=== PATIENT | male | born 1960 | race Caucasian/White ===

== ENCOUNTER → 2016-08-30 | Outpatient (CLI) | payer OTHER, MEDICAID ==
--- NOTE | 2016-08-30 16:22 | DX ---
Right Calcaneus, 2 views History: Follow-up partial calcanectomy for osteomyelitis Comparison: April 23, 2016 FINDINGS: The posterior margin of the ostectomy is sharp and corticated. Bandlike calcification above the posterior calcaneus likely represents heterotopic ossification within the reimplanted Achilles t endon. There is sclerosis deep to the surgical margin. There is no bone lysis. On the axial view ther e is some periosteal new bone along the medial lateral margins of the surgery. There is no soft tissu e gas. Impression: Excellent postoperative healing.
== END ==
LOC: BMCIMAGING 15:00
PROVIDERS: ATTEND Podiatrist Foot & Ankle Surgery
DX: Z09 Encounter for follow-up examination after completed treatment for conditions other than malignant neoplasm (principal); Z98.890 Other specified postprocedural states

== ENCOUNTER 2016-11-01 17:02 | Inpatient (IN) | payer OTHER, MEDICAID ==
--- NOTE | 2016-11-01 17:23 | EDPHY ---
H & P Time Seen by Provider: 11/01/16 17:11 HPI/ROS: CHIEF COMPLAINT: Right ankle wound HISTORY OF PRESENT ILLNESS: This 56-year-old man has had previous right heel infection and osteomyelitis previously treated by Bassem Manuel and Yarely Perdomo. He was last seen but at the end last year and this last had a wound on his right lateral ankle open up. Over the last few days it has become more warm and swollen and hot to the touch and the wound is getting bigger. He says it is associated swelling of his leg and bad smelling discharge. No fevers or chills. Symptoms are moderate. REVIEW OF SYSTEMS: Eye: no change in vision ENT: no sore throat Cardiac: no chest pain or syncope Pulmonary: no cough or SOB Abdomen: no vomiting, diarrhea, abdominal pain. Decreased oral intake which is normal. Musculoskeletal: Minimal pain with decreased sensation in both lower extremities. Skin: Skin as in HPI. Neuro: no headache Constitutional: no fever : Darker urine in the catheter bag. A comprehensive 10 point review of systems is otherwise negative aside from elements mentioned in the history of present illness. 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 Previous right heel resection. Suprapubic catheterization. Social history: Occasional alcohol, nonsmoker. 102/69 at 1800 General Appearance: Alert and conversant, cooperative. Eyes: No scleral icterus. ENT, Mouth: Normal mucous membranes. Respiratory: Normal respiratory effort, breath sounds equal, lungs are clear to auscultation. Cardiovascular: Regular rate and rhythm. Gastrointestinal: Abdomen is soft and non tender. Neurological: Alert and oriented x3. Partial movement of extremities with decrease in both lower extremities. Skin: Patient has a 1.5 cm open wound in the right lateral malleolus with surrounding erythema and 3+ pedal edema which is hot to the touch. Very slight pressure sore on the left side of the patient's buttock. Musculoskeletal: Right ankle and foot peripheral edema. Psychiatric: Not agitated. Emergency Department course/MDM: Appears to have acute cellulitis of the right ankle. Previous wound cultures reviewed from 04/23/2016 and 06/26/2016 includes gram-negative or commands and MSSA. Dr. Matta notified through OR nurse at 6:17 p.m. 1818: Maya to admit IV cefepime 1 g per Patricio, reviewed case in detail with her including previous cultures. IV fluids 2 L normal saline ordered. Patient at this time does not meet SIRS criteria with tachycardia, but afebrile and not tachypneic and normal white blood cell count. C Paxton Ann2, for Conor. Smoking Status: Former smoker Constitutional: Initial Vital Signs Temperature (C) 36.6 C 11/01/16 17:07 Heart Rate 104 H 11/01/16 17:07 Respiratory Rate 18 11/01/16 17:07 Blood Pressure 102/66 11/01/16 17:07 O2 Sat (%) 94 11/01/16 17:07 O2 Delivery Mode Room Air Allergies/Adverse Reactions: ciprofloxacin [From Cipro] Allergy (Verified 11/01/16 17:10) ciprofloxacin HCl [From Cipro] Allergy (Verified 11/01/16 17:10) Home Medications: Medication Instructions Recorded Baclofen [Baclofen 20 mg (*)] 40 mg PO BID 10/05/12 Diazepam [Valium 10 MG (*)] 20 mg PO BID 10/05/12 Nitrofurantoin Macrocrystal 50 mg PO BID 10/05/12 [Nitrofurantoin] Omeprazole [Prilosec 20 mg] 20 mg PO DAILY 10/05/12 Oxybutynin Chloride [Ditropan] 5 mg PO BID 10/05/12 Warfarin Sodium [Coumadin 5MG (*)] 5 mg PO SUTUWETHSA 04/22/16 Warfarin Sodium [Coumadin 7.5MG 7.5 mg PO MOFR 04/22/16 (*)] Medical Decision Making Differential Diagnosis: Differential considered including but not limited to cellulitis, osteomyelitis, abscess, DVT, fasciitis. Consult/Admit Bed Type: [place] [id number] cefepime - Data Points Laboratory Results: Laboratory Results 11/01/16 17:55 11/01/16 17:55 11/01/16 11/01/16 11/01/16 17:55 17:55 17:55 WBC 8.23 10^3/uL 10^3/uL (3.80-9.50) RBC 4.99 10^6/uL 10^6/uL (4.40-6.38) Hgb 14.8 g/dL g/dL (13.7-17.5) Hct 42.7 % % (40.0-51.0) MCV 85.6 fL fL (81.5-99.8) MCH 29.7 pg pg (27.9-34.1) MCHC 34.7 g/dL g/dL (32.4-36.7) RDW 12.8 % % (11.5-15.2) Plt Count 350 10^3/uL 10^3/uL (150-400) MPV 9.4 fL fL (8.7-11.7) Neut % (Auto) 63.5 % % (39.3-74.2) Lymph % (Auto) 24.7 % % (15.0-45.0) Redwood % (Auto) 9.5 % % (4.5-13.0) Eos % (Auto) 1.5 % % (0.6-7.6) Baso % (Auto) 0.4 % % (0.3-1.7) Nucleat RBC Rel Count 0.0 % % (0.0-0.2) Absolute Neuts (auto) 5.24 10^3/uL 10^3/uL (1.70-6.50) Absolute Lymphs (auto) 2.03 10^3/uL 10^3/uL (1.00-3.00) Absolute Monos (auto) 0.78 10^3/uL 10^3/uL (0.30-0.80) Absolute Eos (auto) 0.12 10^3/uL 10^3/uL (0.03-0.40) Absolute Basos (auto) 0.03 10^3/uL 10^3/uL (0.02-0.10) Absolute Nucleated RBC 0.00 10^3/uL 10^3/uL (0-0.01) Immature Gran % 0.4 % % (0.0-1.1) Immature Gran # 0.03 10^3/uL 10^3/uL (0.00-0.10) PT 35.4 SEC H SEC (12.0-15.0) INR 3.46 H (0.83-1.16) APTT 46.8 SEC H SEC (23.0-38.0) VBG Lactic Acid Sodium 136 mEq/L mEq/L (134-144) Potassium 4.4 mEq/L mEq/L (3.5-5.2) Chloride 102 mEq/L mEq/L (97-110) Carbon Dioxide 18 mEq/l L mEq/l (22-31) Anion Gap 16 mEq/L mEq/L (8-16) BUN 15 mg/dL mg/dL (7-23) Creatinine 0.8 mg/dL mg/dL (0.7-1.3) Estimated GFR > 60 Glucose 106 mg/dL H mg/dL (70-100) Calcium 9.1 mg/dL mg/dL (8.5-10.4) Total Bilirubin 0.7 mg/dL mg/dL (0.1-1.4) 11/01/16 17:55 WBC RBC Hgb Hct MCV MCH MCHC RDW Plt Count MPV Neut % (Auto) Lymph % (Auto) Redwood % (Auto) Eos % (Auto) Baso % (Auto) Nucleat RBC Rel Count Absolute Neuts (auto) Absolute Lymphs (auto) Absolute Monos (auto) Absolute Eos (auto) Absolute Basos (auto) Absolute Nucleated RBC Immature Gran % Immature Gran # PT INR APTT VBG Lactic Acid 3.2 mmol/L H mmol/L (0.7-2.1) Sodium Potassium Chloride Carbon Dioxide Anion Gap BUN Creatinine Estimated GFR Glucose Calcium Total Bilirubin Medications Given: Discontinued Medications Cefepime HCl 2 gm/ Dextrose 100 mls @ 200 mls/hr IV EDNOW ONE PRN Reason: Protocol Stop: 11/01/16 18:48 Last Admin: 11/01/16 18:55 Dose: 100 mls Sodium Chloride (Ns) 1,000 mls @ 0 mls/hr IV ONCE ONE PRN Reason: Wide Open Stop: 11/01/16 18:21 Last Admin: 11/01/16 18:30 Dose: 1,000 mls Sodium Chloride (Ns) 1,000 mls @ 0 mls/hr IV ONCE ONE PRN Reason: Wide Open Stop: 11/01/16 18:21 Last Admin: 11/01/16 19:07 Dose: 1,000 mls Departure - Departure Disposition: [facility] Inpatient Acute Clinical Impression: Cellulitis of right ankle Condition: Fair
[2016-11-01 18:03] LABS: % IMMATURE GRANULYOCYTES 0.4 % (0.0-1.1); ABSOLUTE IMMATURE GRANULOCYTES 0.03 10^3/uL (0.00-0.10); ADD DIFF? NO; ADD MORPH? NO; ADD SCAN? NO; ATYPICAL LYMPHOCYTE FLAG 0 (0-99); FRAGMENT RBC FLAG 0 (0-99); HEMATOCRIT 42.7 % (40.0-51.0); HEMOGLOBIN 14.8 g/dL (13.7-17.5); LEFT SHIFT FLG 0 (0-99); LIPEMIA HEMOLYSIS FLAG 90 (0-99); MEAN CELL HEMOGLOBIN 29.7 pg (27.9-34.1); MEAN CELL HEMOGLOBIN CONCENTR. 34.7 g/dL (32.4-36.7); MEAN CELL VOLUME 85.6 fL (81.5-99.8); MEAN PLATELET VOLUME 9.4 fL (8.7-11.7); PLATELET CLUMPS FLAG 20 (0-99); PLATELET COUNT 350 10^3/uL (150-400); RED BLOOD CELL COUNT 4.99 10^6/uL (4.40-6.38); RED CELL DISTRIBUTION WIDTH 12.8 % (11.5-15.2)
[2016-11-01 18:12] LABS: INR 3.46 (0.83-1.16); PROTIME(PATIENT) 35.4 SEC (12.0-15.0)
[2016-11-01 18:14] LABS: APTT 46.8 SEC (23.0-38.0)
[2016-11-01] MEDS ORDERED: CEFEPIME HCL 2 GM in D5W 100 ML IV ONE (18:19)
[2016-11-01] MEDS ORDERED: NS 1,000 ML IV ONE ×2 (18:20)
[2016-11-01 18:24] LABS: ANION GAP 16 mEq/L (8-16); BILIRUBIN,TOTAL 0.7 mg/dL (0.1-1.4); CALCIUM 9.1 mg/dL (8.5-10.4); CARBON DIOXIDE 18 mEq/l (22-31); CHLORIDE 102 mEq/L (97-110); CREATININE 0.8 mg/dL (0.7-1.3); GLOMERULAR FILTRATION RATE > 60; GLUCOSE 106 mg/dL (70-100); POTASSIUM 4.4 mEq/L (3.5-5.2); SODIUM 136 mEq/L (134-144)
[2016-11-01 18:57] LABS: LACGHOST ORDER
[2016-11-01] MEDS ORDERED: ACETAMINOPHEN 325 MG TAB PO PRN (19:33)
[2016-11-01] MEDS ORDERED: ONDANSETRON 4 MG/2 ML VIAL IVP PRN (19:33)
--- NOTE | 2016-11-01 20:29 | GHP ---
[f rep st] HISTORY AND PHYSICAL DATE OF ADMISSION: 11/01/2016 CHIEF COMPLAINT: Right leg infection. HISTORY: The patient is a 56-year-old, incomplete cervical quad, who presents with a right leg woun d. It started as a pressure ulcer that formed on his right lateral ankle which, despite his best ef forts to keep a boot on it and have meticulous wound care, it did develop. This was a few weeks ago when he first noticed it. He was caring for it with wound care and things were improving. He finney ges the dressing twice a week. Last , it looked great but when he took the Porfirio dressing and boot off yesterday. It was massively erythematous with drainage. He does not have any other syste caty symptoms such as fever or chills or otherwise feeling unwell. PAST MEDICAL HISTORY: 1. C5-C6 incomplete quad due to a rugby accident at age 31. 2. DVT. 3. Chronic leg wound and osteomyelitis of the heel requiring surgical debridement. 4. Chronic lower extremity edema. 5. Urinary retention with suprapubic catheter. MEDICATIONS: Please see computer record for full detailed list. ALLERGIES: Cipro. SOCIAL HISTORY: No smoking. Occasional alcohol. He lives independently with the assistance [facility]. REVIEW OF SYSTEMS: Complete review of systems obtained. Review of systems negative regarding const itutional, HEENT, GI, pulmonary, vascular, , hematology, skin, musculoskeletal, endocrine and psyc h, except for positives as noted in HPI. FAMILY HISTORY: Positive for colon cancer in his father. PHYSICAL EXAMINATION: GENERAL: Well-developed, well-nourished male, in no acute distress. VITAL S IGNS: Temperature is 36.6, pulse 104, blood pressure 102/66, saturating 94% on room air. EYES: No rmal conjunctivae. Pupils equal and reactive to light. ENT: Normal ears and nose. Hearing intact . Normal lips and teeth. Oropharynx moist. NECK: Trachea midline. No thyromegaly. CHEST: Norm al respiratory effort. LUNGS: Clear to auscultation bilaterally. CARDIOVASCULAR: Regular rate an d rhythm. No murmur. No lower extremity edema. ABDOMEN: Soft, nontender. No hepatosplenomegaly. SKIN: His right foot is extremely erythematous stemming from a skin breakdown over the lateral an kle bone with an ulceration, erythema is a deep red extending over the entire foot. He is hyperrefl exic to the lower extremities but does not really appreciate any pain. Skin is otherwise warm, dry, intact without rash. MUSCULOSKELETAL: No cyanosis or clubbing. Strength is 0-5 lower extremities. NEURO: Cranial nerves intact. Decreased sensation to light touch in lower extremities which is c hronic. He is hyperreflexic. PSYCH: alert and oriented x3. Normal affect. Normal judgment and i nsight. Normal memory. LABORATORY DATA: White count 8.23, hematocrit 42.7, platelets 350. Sodium 136, potassium 4.4, chlo ride 102, bicarb 18, BUN 15, creatinine 0.8, glucose 106. INR 3.46. Lactate 3.2. This case was di scussed with Dr. Estrella, emergency room provider. He did speak with Infectious Disease and they recom mended cefepime. Ankle x-ray is negative for osteomyelitis. ASSESSMENT AND PLAN: 1. Right lower extremity cellulitis. This started with a pressure ulceration on his lateral ankle, now with extending erythema to involve most of his foot. Per ID recommendation, will continue IV c efepime and will consult him formally in the morning. Will consult wound nurse. 2. Lactic acid elevation. He is otherwise clinically nontoxic and actually does not meet sepsis cr iteria as he is afebrile without a white blood cell count. Lactate is improving after IV fluid in [facility] emergency room. 3. C5-C6 incomplete quadriplegic, this is stable. Will continue his baclofen. 4. Urinary retention status post suprapubic catheter. This is without symptoms. 5. Deep vein thrombosis. We will hold his warfarin secondary to supratherapeutic and INR and resum e warfarin when it comes down. CODE STATUS: Full. ADMISSION STATUS: Will admit to inpatient as his infection is severe, and I anticipate greater than 2 midnights for stabilization. DVT PROPHYLAXIS: He is low risk, given his chronic anticoagulation on warfarin. /[id number]/MODL
[2016-11-01] MEDS: CEFEPIME HCL 2 GM in D5W 100 ML IV SCH (21:10)
[2016-11-01] MEDS: BACLOFEN 20 MG TAB PO SCH (22:10)
[2016-11-01] MEDS: NS 1,000 ML IV SCH (22:10)
[2016-11-01] MEDS: DIAZEPAM 10 MG TAB PO SCH (22:10)
[2016-11-01] MEDS: OXYBUTYNIN CHLORIDE 5 MG TAB PO SCH (22:10)
[2016-11-02] MEDS: NS 1,000 ML IV SCH (03:03)
[2016-11-02] MEDS: CEFEPIME HCL 2 GM in D5W 100 ML IV SCH ×3 (03:03→18:48)
[2016-11-02 05:35] LABS: % IMMATURE GRANULYOCYTES 0.4 % (0.0-1.1); ABSOLUTE IMMATURE GRANULOCYTES 0.02 10^3/uL (0.00-0.10); ADD DIFF? NO; ADD MORPH? NO; ADD SCAN? NO; ATYPICAL LYMPHOCYTE FLAG 20 (0-99); FRAGMENT RBC FLAG 0 (0-99); HEMATOCRIT 36.8 % (40.0-51.0); HEMOGLOBIN 12.5 g/dL (13.7-17.5); LEFT SHIFT FLG 0 (0-99); LIPEMIA HEMOLYSIS FLAG 90 (0-99); MEAN CELL HEMOGLOBIN 28.9 pg (27.9-34.1); MEAN CELL VOLUME 85.2 fL (81.5-99.8); MEAN PLATELET VOLUME 9.5 fL (8.7-11.7); PLATELET CLUMPS FLAG 0 (0-99); PLATELET COUNT 273 10^3/uL (150-400); RED BLOOD CELL COUNT 4.32 10^6/uL (4.40-6.38); RED CELL DISTRIBUTION WIDTH 12.7 % (11.5-15.2)
[2016-11-02 05:38] LABS: INR 4.33 (0.83-1.16); PROTIME(PATIENT) 42.3 SEC (12.0-15.0)
[2016-11-02 05:48] LABS: ANION GAP 6 mEq/L (8-16); CALCIUM 8.1 mg/dL (8.5-10.4); CARBON DIOXIDE 22 mEq/l (22-31); CHLORIDE 110 mEq/L (97-110); CREATININE 0.7 mg/dL (0.7-1.3); GLOMERULAR FILTRATION RATE > 60; GLUCOSE 116 mg/dL (70-100); POTASSIUM 4.1 mEq/L (3.5-5.2); SODIUM 138 mEq/L (134-144)
[2016-11-02] MEDS: PANTOPRAZOLE SODIUM 40 MG TAB PO SCH (09:40)
[2016-11-02] MEDS: BACLOFEN 20 MG TAB PO SCH ×2 (09:40→20:14)
[2016-11-02] MEDS: OXYBUTYNIN CHLORIDE 5 MG TAB PO SCH ×2 (09:40→20:13)
[2016-11-02] MEDS: DIAZEPAM 5 MG TAB PO SCH ×2 (09:48→20:14)
--- NOTE | 2016-11-02 10:11 | HOSPPROG ---
Hospitalist Progress Note Assessment/Plan: RLE Cellulitis in setting of lateral malleolus pressure injury / ulcer - GPC's on gram stain. BCx's pending. ID following, on Cefepime. I reviewed a photo from yesterday and it is certainly improved from presentation. WBC's normal, lactate normalized, afebrile. DVT - supratherapeutic INR of 4.3. Hold Coumadin, pharmacy to dose when indicated. C5-C6 incomplete quad - Cont Baclofen Presence of SPC in setting of urinary retention - no urinary symptoms Full code Dispo - cont inpt Subjective: Feels better. Notes he doesn't get fevers. He thinks it looks better. No pain. Eating well. Objective: Vital Signs Temp Pulse Resp BP Pulse Ox 37.1 C 70 14 106/65 96 11/02/16 07:27 11/02/16 07:27 11/02/16 07:27 11/02/16 07:27 11/02/16 07:27 Laboratory Results 11/02/16 05:17 11/02/16 05:17 11/01/16 11/02/16 11/03/16 05:59 05:59 05:59 Intake Total 3212 Output Total 1525 Balance 1687 PT 42.3 SEC (12.0-15.0) H 11/02/16 05:17 INR 4.33 (0.83-1.16) H 11/02/16 05:17 - Physical Exam Constitutional: no apparent distress Eyes: PERRL Ears, Nose, Mouth, Throat: moist mucous membranes Cardiovascular: regular rate and rhythym Respiratory: no respiratory distress, clear to auscultation Gastrointestinal: normoactive bowel sounds, soft, non-tender abdomen Musculoskeletal: other (RLE lateral malleolus ulcer with decreased surrounding erythema) Neurologic: AAOx3 Psychiatric: interacting appropriately ICD10 Worksheet Patient Problems: Problems Problem Status Onset Cellulitis of right ankle Acute Acute osteomyelitis of right calcaneus Acute 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 Decubitus ulcer of right heel Acute Quadriplegia, C5-C7 incomplete Acute
[2016-11-02] MEDS: DIAZEPAM 10 MG TAB PO SCH (10:53)
--- NOTE | 2016-11-02 11:56 | GCON ---
[f rep st] CONSULTATION DATE OF CONSULTATION: 11/02/2016 CHIEF COMPLAINT: Right lateral malleolus wound and infection. HISTORY OF PRESENT ILLNESS: The patient is a 56-year-old, quadriplegic man, who is well known to [facility] service for his previous wound at the outpatient wound healing center. He developed a lateral mal leolus pressure ulcer. Home care changes the dressing twice per week. Yesterday, when the nurse to ok down the dressing, the surrounding tissue was extremely red, swollen and the wound was draining. He presented to the emergency room. He was not found to have a fever or leukocytosis. He does not have sensation or pain in the area. He was admitted for IV antibiotics. Today, he reports that th e swelling and redness is significantly improved compared to admission. PAST MEDICAL HISTORY: C5-6 incomplete quadriplegia due to rugby accident. History of DVT, chronic lower extremity edema, urinary retention with suprapubic catheter. ALLERGIES: Ciprofloxacin. SOCIAL HISTORY: Nonsmoker. Occasional alcohol use. He lives independently with home health. REVIEW OF SYSTEMS: Negative aside from HPI. FAMILY HISTORY: Noncontributory to wound. PHYSICAL EXAMINATION: GENERAL: Well-developed, well-nourished man, no acute distress, lying in bed comfortably. HEENT: Normocephalic, atraumatic. No hearing deficits. Pupils equal and round. No scleral icterus. Mucous membranes moist. NECK: Trachea midline. CHEST: 2+ peripheral edema rig ht lower extremity, 1+ peripheral edema left lower extremity. LUNGS: No increased work of breathin g. SKIN: The right lateral malleolus wound measures 2.5 x 2.5 x 0.6 cm. There was thick fibrinous slough in the base of the wound. I sharply debrided to reveal healthy granulation tissue. There w as still approximately 20% slough after debridement. He tolerated this well. The wound was cleanse d and dressed with Hydrofera Blue Ready. He has surrounding erythema extending his entire foot as w ell as the leg, up to his knee. The erythema appears to be receding compared to admission. The tis gorge directly surrounding the wound is dark red and violaceous. Palpable DP, PT pulses on the left s lawrence. Unable to palpate pulses on the right secondary to edema. IMPRESSION AND PLAN: A 56-year-old, quadriplegic man with a right lower extremity cellulitis. Sour ce of the infection being the right lateral malleolus wound. Continue IV antibiotics per Infectious Disease recommendation. Prevalon boots to offload pressure. Wound care nurse following. We will c maggie to follow through this admission. He may require serial debridements. Case discussed with Dr. Matta. /[id number]/MODL
--- NOTE | 2016-11-02 13:46 | WOCRNPDOC ---
WOCRN Advanced Assessment Note - Skin Integrity Problem, Advanced Assess Right Heel Pressure Injury Dressing Type: Open to Air Wound Bed Constitution: Scab Site Measurement - Head-to-Toe Length X Width X Depth (cm): 0 Pressure Injury Stage: Stage 3 Pressure Injury Present on Admit: Yes Skin Integrity Problem Comment: Healed pressure injury. Scar present. Unsure whether wound was a stage 3 or stage 4 previously. Left Heel Pressure Injury Dressing Type: Open to Air Site Measurement - Head-to-Toe Length X Width X Depth (cm): 1.5x1x0 Pressure Injury Stage: Deep Tissue Injury (DTI) Pressure Injury Present on Admit: Yes Coccyx Pressure Injury Dressing Type: Tegaderm Film Dressing Description: Clean/Dry, Intact Integumentary Issue Intervention: Dressing Changed, Dressing Initialed & Dated Wound Bed Color: [place] Site Measurement - Head-to-Toe Length X Width X Depth (cm): 2x3x0.1 (partial thickness) and 1x1.5x0 DTI in the middle of the partial thickness wound. Pressure Injury Stage: Deep Tissue Injury (DTI) Skin Integrity Problem Comment: Per report from outpatient wound care this wound originally presented as a skin tear. Now with small non blanching dark red /purple area in center of wound. Will consider pressure at this point. Covered with Alleyvn life sacral dressing. Right Lateral Ankle Pressure Injury Dressing Type: Open to Air Exudate Amount: Minimal Exudate Characteristic(s): Serosanguinous Integumentary Issue Intervention: Dressing Applied Meredith Wound Tissue: Erythema, Erythema Marked by Wound RN Meredith Wound Swelling: Moderate Wound Bed Color: Yellow Wound Bed Constitution: Granulation Tissue (20%), Smooth Tissue, Adhered Slough (20% remaining after bedside debridement), Fascia Site Measurement - Head-to-Toe Length X Width X Depth (cm): 2.5x2.5x0.6 Pressure Injury Stage: Stage 4 Pressure Injury Present on Admit: Yes Extremity Temperature: Warm Skin Integrity Problem Comment: Wound open to air and draining into offloading boot on assessment with Zee YOUNG. Cleaned with wound cleanser and gauze. Zee performed sharp bedside debridement which patient tolerated well. Hydrofera blue ready applied to wound bed and covered with Allevyn life dressing.
--- NOTE | 2016-11-02 17:58 | PCMIDPN ---
Assessment/Plan: Assessment: Right lateral ankle malleolar ulcer with surrounding infection. G stain of wound culture shows both gram-negative rods and gram-positive cocci. The only isolate growing at this point is a methicillin sensitive Staph aureus. It is clear that the cefepime monotherapy has made a significant change in the last 24 hours. The drawn borders are well above any discernible border of erythema. Would continue this monotherapy for another 1-2 days before attempts to switch to oral therapy. There is no evidence of bone involvement on plain film. Plan: 1. Continue cefepime monotherapy. 2. Plan to transition to oral coverage in the next 1-2 days depending on clinical improvement. 11/02/16 17:55 11/02/16 17:58 Subjective: Patient is resting in his hospital bed. He notes his history over the last week of developing a small ulcer on the lateral ankle. He then noted the skin surrounding it became bright red approximately 3-4 days ago. We have seen this patient in the recent past for heel infection on the same foot. Objective: Cefepime # 2 Vital Signs Temp Pulse Resp BP Pulse Ox 37.2 C 72 14 121/72 H 96 11/02/16 15:04 11/02/16 15:04 11/02/16 15:04 11/02/16 15:04 11/02/16 15:04 Laboratory Results 11/02/16 05:17 11/02/16 05:17 11/01/16 11/02/16 11/03/16 05:59 05:59 05:59 Intake Total 3212 750 Output Total 1525 2750 Balance 1687 -1999 - Physical Exam General Appearance: WD/WN, alert, no apparent distress, non-toxic Respiratory: lungs clear, normal breath sounds, No respiratory distress Cardiac/Chest: regular rate, rhythm, No tachycardia Extremities: non-tender, No normal inspection (Right lateral ankle wound less than 1 cm in diameter. Surrounding mild erythema of the ankle and dorsal foot.) Skin: normal color, warm/dry, No rash Neuro/Psych: alert, normal mood/affect, oriented x 3 ICD10 Worksheet Patient Problems: Problems Problem Status Onset Cellulitis of right ankle Acute Acute osteomyelitis of right calcaneus Acute 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 Decubitus ulcer of right heel Acute Quadriplegia, C5-C7 incomplete Acute
[2016-11-03] MEDS: CEFEPIME HCL 2 GM in D5W 100 ML IV SCH ×2 (03:43→11:58)
[2016-11-03 05:22] LABS: INR 2.21 (0.83-1.16); PROTIME(PATIENT) 24.7 SEC (12.0-15.0)
[2016-11-03] MEDS: OXYBUTYNIN CHLORIDE 5 MG TAB PO SCH ×2 (09:19→22:03)
[2016-11-03] MEDS: BACLOFEN 20 MG TAB PO SCH ×2 (09:19→22:03)
[2016-11-03] MEDS: PANTOPRAZOLE SODIUM 40 MG TAB PO SCH (09:20)
[2016-11-03] MEDS: DIAZEPAM 5 MG TAB PO SCH ×2 (09:20→22:03)
--- NOTE | 2016-11-03 12:34 | SOAPPROG ---
SOB[facility] Progress Note Assessment/Plan: Assessment: 56yo male quadriplegic with RLE cellulitis, seen by infectious disease, wound care "things are really improving" Viewed photos on pt phone of few days ago erythema , pain improved, denies feeling sick overall PE awake alert nontoxic RLE right lateral ankle wound with minimal erythema, no fluctuance, decreased pulses to palpation Plan: marked improvement with ABX wound care ART studies to asses flow, seen with Dr Matta will continue to follow 11/03/16 12:31 Objective: Vital Signs Temp Pulse Resp BP Pulse Ox 36.5 C 65 16 97/64 L 94 11/03/16 11:26 11/03/16 11:26 11/03/16 11:26 11/03/16 11:26 11/03/16 11:26 Laboratory Results 11/02/16 05:17 11/02/16 05:17 11/02/16 11/03/16 11/04/16 05:59 05:59 05:59 Intake Total 3212 2825 Output Total 152 6630 1000 Balance 7567 -9535 -1000 PT 24.7 SEC (12.0-15.0) H D 11/03/16 04:49 INR 2.21 (0.83-1.16) H 11/03/16 04:49 ICD10 Worksheet Patient Problems: Problems Problem Status Onset Cellulitis of right ankle Acute Acute osteomyelitis of right calcaneus Acute 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 Decubitus ulcer of right heel Acute Quadriplegia, C5-C7 incomplete Acute
--- NOTE | 2016-11-03 12:35 | WOCRNPDOC ---
TERRI Advanced Assessment Note - Skin Integrity Problem, Advanced Assess Right Lateral Ankle Dressing Type: Allevyn Life, Hydrofera Blue Ready Dressing Description: Clean/Dry, Intact Exudate Amount: Scant Exudate Characteristic(s): Serosanguinous Integumentary Issue Intervention: Dressing Changed Meredith Wound Tissue: Erythema (greatly reduced since assessment yesterday. ) Wound Bed Constitution: Granulation Tissue, Adhered Slough Skin Integrity Problem Comment: Cleaned with wound cleanser. Iodosorb to wound bed. Covered with Alleyvhomer Life. Dr. Perdomo and Dr. Curry assessed. Wound care will follow up Monday or Tuesday 11/07 or 11/08.
--- NOTE | 2016-11-03 12:39 | PCMIDPN ---
Assessment/Plan: R LE cellulitis secondary to MSSA associated with R lateral ankle wound - remarkable improvement over 3 days based on picture records. Blood cultures and 11/02 1 set each day remains negative. --narrow antibiotics to ancef 1gm IV q8h, can dc on 7 days of Keflex 500mg PO TID tomorrow --dc cefepime Care coordinated with Dr Perdomo and wound care team Subjective: patient very happy with significant response to antibiotics Objective: Vital Signs Temp Pulse Resp BP Pulse Ox 36.5 C 65 16 97/64 L 94 11/03/16 11:26 11/03/16 11:26 11/03/16 11:26 11/03/16 11:26 11/03/16 11:26 Laboratory Results 11/02/16 05:17 11/02/16 05:17 11/02/16 11/03/16 11/04/16 05:59 05:59 05:59 Intake Total 3212 2825 Output Total 1525 6650 1000 Balance 4727 -0805 -1000 - Physical Exam General Appearance: alert, no apparent distress EENT: No scleral icterus Respiratory: No accessory muscle use Extremities: erythema (very faint erythema remains immediately surrounding wound on lateral R ankle. much of the erythema present on bernal, lateral leg has now completely resolved) Skin: No rash Neuro/Psych: alert, normal mood/affect, oriented x 3 ICD10 Worksheet Patient Problems: Problems Problem Status Onset Cellulitis of right ankle Acute Acute osteomyelitis of right calcaneus Acute 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 Decubitus ulcer of right heel Acute Quadriplegia, C5-C7 incomplete Acute
[2016-11-03] MEDS: WARFARIN SODIUM 5 MG TAB PO SCH ×2 (13:42→14:16)
--- NOTE | 2016-11-03 14:15 | SOAPPROG ---
SOAP Progress Note Assessment/Plan: Assessment: 56 year old paraplegic who was admitted for right lower extremity cellulitus and wound on right lateral malleolus. Posterior wound scabbed. Iodosorb to malleolus. Cellulitus much improved on antibiotics. [facility] 1[facility]2 weeks after discharge. Plan: 11/03/16 14:12 Objective: Vital Signs Temp Pulse Resp BP Pulse Ox 36.5 C 65 16 97/64 L 94 11/03/16 11:26 11/03/16 11:26 11/03/16 11:26 11/03/16 11:26 11/03/16 11:26 Laboratory Results 11/02/16 05:17 11/02/16 05:17 11/02/16 11/03/16 11/04/16 05:59 05:59 05:59 Intake Total 3212 2825 Output Total 1525 6650 1000 Balance 1687 -3825 -1000 PT 24.7 SEC (12.0-15.0) H D 11/03/16 04:49 INR 2.21 (0.83-1.16) H 11/03/16 04:49 ICD10 Worksheet Patient Problems: Problems Problem Status Onset Cellulitis of right ankle Acute Acute osteomyelitis of right calcaneus Acute 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 Decubitus ulcer of right heel Acute Quadriplegia, C5-C7 incomplete Acute
--- NOTE | 2016-11-03 15:41 | HOSPPROG ---
Hospitalist Progress Note Assessment/Plan: 56-year-old admitted with a right lower extremity cellulitis and abscess. Patient is new to me today. - Are LLE cellulitis in setting of lateral malleolus pressure injury or ulceration. Antibiotic on cefepime for gram-positive cocci on the Gram stain. Review of the photo from admission shows it is very significantly improved from admission. - DVT: By history he has had a DVT and he was admitted with a super therapeutic INR at 4.3. The INR is normalized and will restart his Coumadin today. - C5-C6 Incomplete quad will continue baclofen. - Code: Full - disposition: 1-2 days on oral antibiotics per findings of ID and surgery. Subjective: No complaints of chest pain shortness of breath or right leg pain. Objective: Vital Signs Temp Pulse Resp BP Pulse Ox 36.5 C 65 16 97/64 L 94 11/03/16 11:26 11/03/16 11:26 11/03/16 11:26 11/03/16 11:26 11/03/16 11:26 Laboratory Results 11/02/16 05:17 11/02/16 05:17 11/02/16 11/03/16 11/04/16 05:59 05:59 05:59 Intake Total 3212 2825 Output Total 1525 6650 1000 Balance 1687 -3825 -1000 PT 24.7 SEC (12.0-15.0) H D 11/03/16 04:49 INR 2.21 (0.83-1.16) H 11/03/16 04:49 - Time Spent With Patient Time Spent with Patient: greater than 35 minutes Time Spent with Patient: Greater than 35 minutes spent on this patients care, greater than 50% of time spent counseling, educating, and coordinating care regarding the above mentioned plan. - Pending Discharge Pending Discharge Within 24 Hours: Yes Pending Discharge Date: 11/04/16 Pending Discharge Time: 11:00 - Physical Exam Constitutional: no apparent distress Eyes: PERRL Ears, Nose, Mouth, Throat: moist mucous membranes, hearing normal Cardiovascular: regular rate and rhythym, no murmur, rub, or gallop Respiratory: no respiratory distress, no rales or rhonchi Gastrointestinal: normoactive bowel sounds, soft, non-tender abdomen, no palpable masses Skin: other ( Right lower extremity over the lateral malleolus shows a pressure ulceration at a stage III with out surrounding erythema or ascending cellulitis at this time. It is much improved.) Neurologic: AAOx3, CN II-XII Intact, other ( C5-6 incomplete quad. Patient has use of his upper extremity.) ICD10 Worksheet Patient Problems: Problems Problem Status Onset Quadriplegia, C5-C7 incomplete Acute Decubitus ulcer of right heel Acute 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 Acute osteomyelitis of right calcaneus Acute Cellulitis of right ankle Acute
[2016-11-03] MEDS ORDERED: WARFARIN SODIUM 5 MG TAB PO ONE (16:00)
[2016-11-03 23:48] VITALS: RESP 16
[2016-11-04 05:35] LABS: INR 1.4 (0.83-1.16); PROTIME(PATIENT) 17.1 SEC (12.0-15.0)
[2016-11-04] MEDS: DIAZEPAM 5 MG TAB PO SCH (08:44)
[2016-11-04] MEDS: OXYBUTYNIN CHLORIDE 5 MG TAB PO SCH (08:44)
[2016-11-04] MEDS: PANTOPRAZOLE SODIUM 40 MG TAB PO SCH (08:44)
[2016-11-04] MEDS: BACLOFEN 20 MG TAB PO SCH (08:44)
[2016-11-04 12:09] VITALS: PULSE 71; TEMP 98; O2SAT 94
[2016-11-04 12:11] VITALS: BP 96/55
[2016-11-04] MEDS ORDERED: WARFARIN SODIUM 7.5 MG TAB PO SCH (13:00)
--- NOTE | 2016-11-04 13:57 | PDIAF ---
- Diagnosis Code Status: Full Code - Medication Management Discharge Medications: Medications to Continue on Transfer Baclofen [Baclofen 20 mg (*)] 40 mg PO BID 10/05/12 [Last Taken 11/01/16] Diazepam [Valium 10 MG (*)] 20 mg PO BID 10/05/12 [Last Taken 11/01/16] Nitrofurantoin Macrocrystal [Nitrofurantoin] 50 mg PO BID 10/05/12 [Last Taken 11/01/16] Omeprazole [Prilosec 20 mg] 20 mg PO DAILY 10/05/12 [Last Taken 11/01/16] Oxybutynin Chloride [Ditropan] 5 mg PO BID 10/05/12 [Last Taken 11/01/16] Warfarin Sodium [Coumadin 5MG (*)] 5 mg PO SUTUWETHSA 04/22/16 [Last Taken 11/01] Warfarin Sodium [Coumadin 7.5MG (*)] 7.5 mg PO MOFR 04/22/16 [Last Taken ] Cephalexin [Keflex] 500 mg PO TID #21 capsule 11/04/16 [Last Taken Unknown] Diphenoxylate HCl/Atrop Sulf [Lomotil Tab (*)] 1 tab PO BID PRN #30 tab [Last Taken Unknown] Discharge Medications: Refer to the Discharge Home Medication list for PRN reason. - Orders Services needed: Home Care, Registered Nurse, Certified Toxicology Supervisor Home Care Face to Face: I certify that this patient was under my care and that I had the required [id number] encounter meeting the encounter requirements on the discharge day. My findings support the fact that the patient is homebound as defined in CMS Chapter 7 Medicare Benefits Manual 30.1.1, The condition of the patient is such that there exists a normal inability to leave home and consequently, leaving home would require a considerable and taxing effort. Diet Recommendation: no restrictions on diet Diet Texture: Regular Texture Diet - Follow Up Care Current Providers and Referrals: MALU SILVERIO [Primary Care Provider] - follow up in 2 weeks
--- NOTE | 2016-11-04 13:58 | GDS ---
[f rep st] DISCHARGE SUMMARY DIAGNOSES: Known acute diagnoses on this admission: 1. Acute right lateral malleolus abscess ulceration with cellulitis. 2. Lactic acid elevation in a nontoxic range. Chronic diagnoses: 1. C5-6 incomplete quad. 2. Urinary retention status post suprapubic catheter placement. 3. Deep venous thrombosis by history on warfarin anticoagulation. CONSULTATION: Wound Care, Infectious Disease. PROCEDURES: Daily wound care. HOSPITAL COURSE: This is a 56-year-old male with a known C5-6 partial quad. The patient has some u se of his upper extremities. He presented with a wound infection on the right lateral malleolus whi ch was examined and found to extend to the deep tissues along with some cellulitis. He was placed o n IV antibiotics and had remarkable improvement with this and daily wound care. The wound was debri ded by Surgery at the bedside and remarkably improved. For his improvement and as he has strong [facility] e care, he desired to return home and complete oral antibiotics. DISCHARGE MEDICATIONS: His new medication will be Keflex 500 mg p.o. t.i.d. x7 days. We will cont inue his usual medications of nitrofurantoin 50 mg b.i.d.; Valium 20 mg p.o. b.i.d.; baclofen 40 mg b.i.d.; Ditropan 5 mg b.i.d.; omeprazole 20 mg daily; Coumadin 7.5 mg on Monday and Monday and 5 mg on Monday, Monday, Monday, , Monday; Colace suppositories and Lomotil 2 mg tablets, #3 0, one p.o. for diarrhea up to 4 per day. PLAN: The gentleman returns home to his home care. He will follow up at the [facility] in 1-2 weeks. He also will be seen by his own physician, Dr. Randell Pinedo in 2 weeks on a p.r.n. basis. Laboratories of note at the time of discharge. His discharge INR is 1.4, which we have resumed his usual home regime. This is his only low reading and otherwise he was supratherapeutic. Thus, he wi ll not be bridged as we expect fully he will return to a therapeutic range within 24 hours. WBC 500 0, hemoglobin 12.5. Chemistry panel was normal with a calcium of 8.1. Time of this discharge required 40 minutes, greater than 50% to counseling aide and coordinate care. /[id number]/MODL
[2016-11-04] MEDS ORDERED: WARFARIN SODIUM 5 MG TAB PO SCH (16:00)
--- NOTE | 2016-11-07 14:06 | CPIP ---
[f rep st] INVASIVE CARDIAC PROCEDURE DATE OF PROCEDURE: 11/03/2016 FINDINGS: The patient was seen for arterial studies because of nonhealing wound. He does have palp able pedal pulses bilaterally. His PVR tracings show good segmental tracings all the way down to th e metatarsal level bilaterally. Ankle-brachial indices are greater than 1 bilaterally. IMPRESSION: No evidence of vascular insufficiency to explain his lesion. The patient was not exerc ised as he is paraplegic. /[id number]/MODL
--- NOTE | 2016-11-08 10:08 | PQFORM ---
PHYSICIAN QUERY FORM Needs Your Response This query form is being sent to you to assure this patient record is coded properly. Please respond to the question below: FRENCH POLISHER QUESTION: HCETOR Taveras On 11/02/16 you performed a bedside debridement. Per your documentation, you sharply debrided the fibrinous slough from lateral malleolus wound, Please clarify if this debridement was: ( * ) Excisional skin ( * ) Excisional subcu/ fascia ( ) Excisional muscle/soft tissue ( ) Wash out/drainage Thank you, LAINEY Fraser [phone] INSTRUCTIONS FOR RESPONSE: Answer question by clicking on the "Edit Document" button. Move cursor to area below the stars. When complete, hit "Save." Click on the "Sign" button, then click "Sign" again. Type in your PIN and hit "Enter." MTDD
== END 2016-11-04 16:27 | disposition home health service (06) | DRG 579 ==
LOC: F3E 20:06
PROVIDERS: ADMIT Internal Medicine; ATTEND Internal Medicine Pulmonary Disease
PROC: 0JBN3ZZ Excision of Right Lower Leg Subcutaneous Tissue and Fascia, Percutaneous Approach (ICD-10-PCS; principal; 2016-11-02)
DX: L02.415 Cutaneous abscess of right lower limb (principal); L03.115 Cellulitis of right lower limb; B95.61 Methicillin susceptible Staphylococcus aureus infection as the cause of diseases classified elsewhere; G82.54 Quadriplegia, C5-C7 incomplete; R60.9 Edema, unspecified; R33.9 Retention of urine, unspecified; Z86.718 Personal history of other venous thrombosis and embolism; Z79.01 Long term (current) use of anticoagulants
CPT/HCPCS: 96365; J0690; J0692

== ENCOUNTER 2017-09-04 18:12 | Inpatient (IN) | payer OTHER, MEDICAID ==
--- NOTE | 2017-09-04 18:50 | EDPHY ---
H & P Stated Complaint: infected right foot. seen at outpt clinic - Personal History Current Tetanus/Diphtheria Vaccine: Yes Current Tetanus Diphtheria and Acellular Pertussis (TDAP): Yes - Medical/Surgical History Hx Asthma: No Hx Chronic Respiratory Disease: No Hx Diabetes: No Hx Cardiac Disease: No Hx Renal Disease: No Hx Cirrhosis: No Hx Alcoholism: No Hx HIV/AIDS: No Hx Splenectomy or Spleen Trauma: No Other PMH: quad-Rugby, supra pubic cath, psh- partial amp R heel 04/2016 - Social History Smoking Status: Former smoker Time Seen by Provider: 09/04/17 18:17 HPI/ROS: CHIEF COMPLAINT: "I have an infection on the right leg " HISTORY OF PRESENT ILLNESS: 56-year-old wheelchair-bound male, history of chronic infection bilateral malleoli followed at the wound clinic, complaining of new, progressive erythema to the right lower extremity, fever, flu-like symptoms for the past 2 days. He is followed at the wound clinic for his chronic malleolus by wounds however notes that the erythema in his right lower extremity is new. He denies: Urinary abnormality, abdominal pain, chest pain, cough, sore throat, nuchal rigidity. REVIEW OF SYSTEMS: A ten point review of systems was performed and is negative with the exception of the items mentioned in the HPI PAST MEDICAL & SURGICAL HISTORY: C5-6 incomplete quadriplegic. Urinary retention history. DVT on warfarin anticoagulation. Medial lateral malleoli chronic wounds. Wheelchair-bound SOCIAL HISTORY: Lives by himself PHYSICAL EXAM (Prior to examination, patient consented to physical exam, hands were washed and my usual and customary physical exam procedures followed) 1) GENERAL: Well-developed, well-nourished, alert and oriented. Appears to be in no acute distress. 2) HEAD: Normocephalic, atraumatic 3) HEENT: Pupils equal, round, reactive to light bilaterally. Sclera anicteric. 4) NECK: Full range of motion, no meningeal signs. 5) LUNGS: Clear auscultation bilaterally, no wheezes, no rhonchi, no retractions. 6) HEART: Regular rate and rhythm, no murmur, no heave, no gallop. 7) ABDOMEN: No guarding, no rebound, no focal tenderness, negative McBurney's, negative Sandoval's, negative Rovsing's, negative peritoneal sign, 8) MUSCULOSKELETAL: Right lower extremity:. Right ankle dressings in place, draining, tender, no crepitus. erythema, induration indurated extending to the distal 3rd of the thigh Moving all extremities, no focal areas of tenderness, no obvious trauma. No peripheral edema or discoloration. 9) BACK: No CVA tenderness, no midline vertebral tenderness, no fluctuance, no step-off, no obvious trauma, no visual or palpable abnormality. 10) SKIN: No rash, no petechiae. 11) Psychiatric: Patient is oriented X 3, there is no agitation. Answering questions appropriately DIFFERENTIAL DIAGNOSIS: In no particular order including but not limited to cellulitis, necrotizing fasciitis, osteomyelitis (Nani,Rain Aishwarya) Constitutional: Initial Vital Signs Temperature (C) 36.3 C 09/04/17 18:17 Heart Rate 112 H 09/04/17 18:17 Respiratory Rate 16 09/04/17 18:17 Blood Pressure 106/65 09/04/17 18:17 O2 Sat (%) 92 09/04/17 18:17 O2 Delivery Mode Room Air Allergies/Adverse Reactions: ciprofloxacin [From Cipro] Allergy (Verified 11/01/16 17:10) ciprofloxacin HCl [From Cipro] Allergy (Verified 11/01/16 17:10) Home Medications: Medication Instructions Recorded Baclofen [Baclofen 20 mg (*)] 40 mg PO BID 10/05/12 Diazepam [Valium 10 MG (*)] 20 mg PO BID 10/05/12 Nitrofurantoin Macrocrystal 50 mg PO BID 10/05/12 [Nitrofurantoin] Omeprazole [Prilosec 20 mg] 20 mg PO DAILY 10/05/12 Oxybutynin Chloride [Ditropan] 5 mg PO BID 10/05/12 Warfarin Sodium [Coumadin 5MG (*)] 5 mg PO SUMOTUWETHSA 04/22/16 Warfarin Sodium [Coumadin 7.5MG 7.5 mg PO FR 04/22/16 (*)] Medical Decision Making - Diagnostics Imaging Results: Imaging Impressions Ankle X-Ray 09/04/17 18:48 Impression: Postsurgical changes of resection of the posterior calcaneus. Possible erosion at the inferior tip of the lateral malleolus, which could represent osteomyelitis. Soft tissue swelling. Diffuse demineralization. Extremity Venous Study 09/04/17 18:48 Impression: No deep venous thrombosis right leg. Results called and discussed with Rain Cardoza at 09/04/2017 20:13. Chest X-Ray 09/04/17 18:49 Impression: No evidence for acute cardiopulmonary abnormality. ED Course/Re-evaluation: This patient was re-evaluated with serial examinations in the case discussed with primary supervising physician Dr. Satish Merritt in the ER. I think the patient necessitates hospitalization for progressive cellulitis of his right lower extremity, history of similar. He is started on IV vancomycin, blood cultures obtained. Doubt necrotizing fasciitis. (Rain Cardoza) Other Provider: Independent physician evaluation I evaluated and participated in the management of the patient. I also evaluated the patient independently. My co-signature indicates that I have reviewed this chart and I agree with the findings and plan of care as documented. My personal H&P findings include: The patient presents to the ED for markedly increased right leg edema, erythema and a fever to 103 degrees yesterday. The patient does have a history of cellulitis in the lower extremity. He has chronic ankle ulcer secondary to his chronic quadriplegia. The patient denies any fever, cough or congestion Physical exam: General Appearance: [Alert, no distress] Eyes: [Pupils equal and round no pallor or injection] ENT, Mouth: [Mucous membranes moist] Respiratory: [There are no retractions, lungs are clear to auscultation] Cardiovascular: [Regular rate and rhythm] Gastrointestinal: [Abdomen is soft and nontender, no masses, bowel sounds normal] Neurological: Chronic upper and lower extremity weakness secondary to his spinal cord injury Skin: Erythematous changes noted throughout the right lower extremity Musculoskeletal: [Neck is supple nontender] Extremities: Edema to right lower extremity with blistering lesions ED course: The patient presents to the ED with a right lower extremity cellulitis and evidence severe sepsis (elevated venous lactate, tachycardia, leukocytosis and tachycardia). The patient had blood cultures x2 obtained. The patient has no evidence of hypotension or septic shock. The patient received a IV fluid bolus. Plan will be for repeat venous lactic acid testing prior to transfer to the floor. Consultation is made with the hospitalist service. The patient is started on IV vancomycin and Invanz. (Satish Merritt) - Data Points Laboratory Results: Laboratory Results 09/04/17 19:23 09/04/17 19:23 09/04/17 09/04/17 09/04/17 19:23 19:23 19:23 WBC RBC Hgb Hct MCV MCH MCHC RDW Plt Count MPV Neut % (Auto) Lymph % (Auto) [place] % (Auto) Eos % (Auto) Baso % (Auto) Nucleat RBC Rel Count Absolute Neuts (auto) Absolute Lymphs (auto) Absolute Monos (auto) Absolute Eos (auto) Absolute Basos (auto) Absolute Nucleated RBC Immature Gran % Immature Gran # PT 24.1 SEC H SEC (12.0-15.0) INR 2.16 H (0.83-1.16) APTT 41.2 SEC H SEC (23.0-38.0) VBG Lactic Acid 3.0 mmol/L H mmol/L (0.7-2.1) Sodium 135 mEq/L mEq/L (135-145) Potassium 3.9 mEq/L mEq/L (3.5-5.2) Chloride 96 mEq/L L mEq/L (97-110) Carbon Dioxide 24 mEq/l mEq/l (22-31) Anion Gap 15 mEq/L mEq/L (8-16) BUN 11 mg/dL mg/dL (7-23) Creatinine 0.8 mg/dL mg/dL (0.7-1.3) Estimated GFR > 60 Glucose 105 mg/dL H mg/dL (70-100) Calcium 8.9 mg/dL mg/dL (8.5-10.4) Total Bilirubin 0.7 mg/dL mg/dL (0.1-1.4) 09/04/17 19:23 WBC 17.24 10^3/uL H 10^3/uL (3.80-9.50) RBC 4.72 10^6/uL 10^6/uL (4.40-6.38) Hgb 14.3 g/dL g/dL (13.7-17.5) Hct 41.8 % % (40.0-51.0) MCV 88.6 fL fL (81.5-99.8) MCH 30.3 pg pg (27.9-34.1) MCHC 34.2 g/dL g/dL (32.4-36.7) RDW 12.4 % % (11.5-15.2) Plt Count 265 10^3/uL 10^3/uL (150-400) MPV 9.1 fL fL (8.7-11.7) Neut % (Auto) 86.3 % H % (39.3-74.2) Lymph % (Auto) 5.5 % L % (15.0-45.0) [place] % (Auto) 6.8 % % (4.5-13.0) Eos % (Auto) 0.6 % % (0.6-7.6) Baso % (Auto) 0.3 % % (0.3-1.7) Nucleat RBC Rel Count 0.0 % % (0.0-0.2) Absolute Neuts (auto) 14.88 10^3/uL H 10^3/uL (1.70-6.50) Absolute Lymphs (auto) 0.94 10^3/uL L 10^3/uL (1.00-3.00) Absolute Monos (auto) 1.17 10^3/uL H 10^3/uL (0.30-0.80) Absolute Eos (auto) 0.11 10^3/uL 10^3/uL (0.03-0.40) Absolute Basos (auto) 0.05 10^3/uL 10^3/uL (0.02-0.10) Absolute Nucleated RBC 0.00 10^3/uL 10^3/uL (0-0.01) Immature Gran % 0.5 % % (0.0-1.1) Immature Gran # 0.09 10^3/uL 10^3/uL (0.00-0.10) PT INR APTT VBG Lactic Acid Sodium Potassium Chloride Carbon Dioxide Anion Gap BUN Creatinine Estimated GFR Glucose Calcium Total Bilirubin Medications Given: Discontinued Medications Vancomycin HCl 1 gm/ Dextrose 250 mls @ 250 mls/hr IV EDNOW ONE Stop: 09/04/17 20:29 Last Admin: 09/04/17 20:00 Dose: 250 mls Sodium Chloride (Ns) 2,700 mls @ 5,400 mls/hr 30 ml/kg infuse over 30 min ( 2700 ml) IV EDNOW ONE PRN Reason: Protocol Stop: 09/04/17 20:06 Last Admin: 09/04/17 19:45 Dose: 2,700 mls Departure - Departure Referrals: MALU SILVERIO [Primary Care Provider] - As per Instructions
[2017-09-04] MEDS ORDERED: VANCOMYCIN HCL/NORMAL SALINE 250 ML IV ONE (19:01)
[2017-09-04] MEDS ORDERED: VANCOMYCIN 1 GM in D5W 250 ML IV ONE (19:30)
[2017-09-04 19:35] LABS: PLATELET COUNT 265 10^3/uL (150-400)
[2017-09-04] MEDS ORDERED: NS 2,700 ML IV ONE (19:37)
[2017-09-04 20:11] LABS: INR 2.16 (0.83-1.16); PROTIME(PATIENT) 24.1 SEC (12.0-15.0)
[2017-09-04] MEDS ORDERED: ERTAPENEM 1 GM VIAL IVP ONE (20:28)
[2017-09-04] MEDS ORDERED: ONDANSETRON 4 MG/2 ML VIAL IVP PRN (20:29)
[2017-09-04] MEDS ORDERED: ONDANSETRON DISINTEGRATING 4 MG TAB PO PRN (20:29)
[2017-09-04] MEDS ORDERED: ACETAMINOPHEN 500 MG TAB ONE (20:39)
[2017-09-04] MEDS ORDERED: ACETAMINOPHEN 500 MG TAB PO ONE (20:40)
--- NOTE | 2017-09-04 22:05 | GHP ---
[f rep st] HISTORY AND PHYSICAL DATE OF ADMISSION: 09/04/2017 CHIEF COMPLAINT: Fevers, chills, and leg erythema. HISTORY OF PRESENT ILLNESS: This is a 56-year-old male with a history of C5-C6 incomplete quad due t o a rugby accident at age 31 who presents with 48 hours of symptoms of not feeling well, subjective f irena, chills. Patient was concerned that he potentially had influenza, made an attempt at fluid hyd ration at home, and ended up spending the day prior to presentation predominantly in bed. His aides did come to assist, provide him food. He skipped his daily rituals the day prior to presentation. [place] he michael the morning of presentation to begin his bowel regimen and address his lower extremity dr mata, noted that his right lower extremity was markedly more swollen, erythematous, and the wound looked markedly worse than it had the days previous. Therefore, he presented to the emergency depart ment for evaluation. In the ED, patient is still feeling subjective fevers and chills. Denies any nausea. Denies cough, shortness of breath. Denies any urinary symptoms or changes in his bowel habits. Gets regular wound care for his chronic right lower extremity wound as well as his chronic decubitus ulceration. Had n oted some darkening of his urine from his suprapubic catheter. PAST MEDICAL HISTORY: 1. C5-6 incomplete quadriplegic due to rugby accident at age 31. 2. History of DVT, on chronic anticoagulation. 3. Chronic leg wound with history of osteomyelitis of the heel. 4. Chronic urinary retention with suprapubic catheter. SOCIAL HISTORY: Patient lives independently with care providers. Denies tobacco. Drinks occasional ly. Occasionally uses marijuana. No illicit drugs. FAMILY HISTORY: Positive for prostate cancer and colon cancer on his father's side. REVIEW OF SYSTEMS: A 10-point review of systems is negative with the exception of that reported in t he HPI. ADVANCE DIRECTIVES: Patient is full cor, full tube. PHYSICAL EXAMINATION: VITAL SIGNS: Blood pressure 112/79, heart rate 112, respiratory rate 16, 92% on room air, 36.3. GENERAL: This is a quadriplegic middle-aged male lying flat in bed. HEENT: Notable for dry mucous membranes. Eye exam is negative for any icterus. CARDIAC: Patient i s tachycardic but regular. PULMONARY: Clear to auscultation bilaterally. GASTROINTESTINAL: Positi ve bowel sounds. Abdomen is soft. MUSCULOSKELETAL: The patient has marked swelling of the right lo wer extremity from the toes to the thigh with erythema extending from the toes to the thigh. There i s a wound of the lateral right heel, which is much deeper with an eschar and purulence. There is mor e swelling in the right lower extremity than the left. SKIN: Erythema as noted, the right lower ext remity. There is a decubitus ulceration present on admission with surrounding erythema. NEUROLOGIC: Patient is alert and oriented x3. PSYCHIATRIC: He is pleasant and cooperative on interview and ex amination. DATA: White count 17.2, hematocrit 41.8, platelets of 265. INR 2.16. Creatinine 0.8, sodium 135. Chest x-ray, which I personally reviewed and interpreted, shows no acute infiltrates. Ankle x-ray on the right, which I personally reviewed and interpreted, shows no acute fracture. Radiology comments on possible erosion, inferior tip of the lateral malleolus. ASSESSMENT AND PLAN: This is a 56-year-old C5-6 partial quadriplegic presenting with fevers and chil ls. 1. Sepsis. Patient is presenting with leukocytosis and tachycardia, systemic symptoms of infection. Presumed source is the right lower extremity cellulitis and/or a bloodstream infection from the ski n source. Will continue IV fluid resuscitation, empiric antibiotics with IV vancomycin. Patient did receive 1 dose of ertapenem in the emergency department. Will consult Infectious Disease to assist in the antibiotic management and recommendations for additional diagnostic imaging. 2. Severe cellulitis. Patient has pictures on his telephone from 48 hours prior, and there has been marked progression of the patient's erythema and swelling. Will empirically treat with IV vancomyci n secondary to purulent discharge and consult Infectious Disease for additional antibiotic and diagno stic recommendations. 3. Acute leukocytosis. Suspected source is from his right lower extremity. I have low suspicion fo r a urinary source as the patient does not have any significant symptoms. Will follow the blood cult ures carefully. 4. C5-6 incomplete quadriplegia. Will continue aggressive therapy support and wound care. 5. Decubitus ulceration present on admission. Will consult Wound Care. Based on imaging, it appear s improved from his last interval images. 6. Chronic urinary retention. Will continue suprapubic catheter care. 7. History of deep vein thrombosis. Will continue patient's home dosing of warfarin. 8. Prophylaxis: The patient is on full-dose anticoagulation. 9. Diet: Regular. DISPOSITION: I expect greater than 2 midnights as the patient will need IV antibiotics, likely addit ional diagnostic imaging, and care for sepsis and cellulitis. I have discussed the case with the [facility] room physician. Patient will be triaged to the medical-surgical floor for care. /[id number]/MODL
[2017-09-04] MEDS: OXYBUTYNIN CHLORIDE 5 MG TAB PO SCH (22:37)
[2017-09-04] MEDS: BACLOFEN 20 MG TAB PO SCH (23:55)
[2017-09-04] MEDS: DIAZEPAM 10 MG TAB PO SCH (23:55)
[2017-09-04] MEDS: NITROFURANTOIN 50 MG CAP PO SCH (23:56)
[2017-09-05] MEDS: ACETAMINOPHEN 325 MG TAB PO PRN ×4 (04:27→19:40)
[2017-09-05 05:49] LABS: PLATELET COUNT 224 10^3/uL (150-400)
[2017-09-05] MEDS: VANCOMYCIN 1.5 GM in D5W 250 ML IV SCH ×2 (08:41→21:04)
[2017-09-05] MEDS: BACLOFEN 20 MG TAB PO SCH ×2 (08:42→20:24)
[2017-09-05] MEDS: PANTOPRAZOLE SODIUM 40 MG TAB PO SCH (08:42)
[2017-09-05] MEDS: OXYBUTYNIN CHLORIDE 5 MG TAB PO SCH ×2 (08:42→20:25)
[2017-09-05] MEDS ORDERED: ENOXAPARIN 40 MG/0.4 ML SYR SC SCH (09:00)
[2017-09-05] MEDS: DIAZEPAM 10 MG TAB PO SCH ×2 (09:07→20:25)
[2017-09-05] MEDS: NITROFURANTOIN 50 MG CAP PO SCH ×2 (09:08→20:25)
--- NOTE | 2017-09-05 10:09 | ASMTCASEMG ---
Living Arrangements What is your living Answers: Alone arrangement? Who do you live with? Type Of Residence What kind of residence do Answers: House you live in? Discharge Plan Comments Coordination Status Comments Notes: Pt is a 56 y/o man admitted for cellulitis. Pt is a C5-C6 quad due to a rugby accident at age 31. Pt lives w/ care providers. ID will be consulted. Pt has started iv antibiotic therapies. PT and OT has been ordered and awaiting recommendations. Needs are TBD at this time. CM to follow. Plan: TBD Date Signed: 09/05/2017 10:09 AM Electronically Signed By:AIDEN Bustamante
--- NOTE | 2017-09-05 10:16 | PDMN ---
Medical Necessity Medical necessity: Pt meets IP criteria per MD; est los >2 mn for eval/tx of sepsis, severe RLE cellulitis & decubitus ulceration; admit for further workup/ monitoring, ID/Wound Care consults, IV abx, IVFs & therapies; comorbid C5-6 partial quadriplegic, chronic urinary retention w/suprapubic catheter, DVTs on AC, chronic leg wound w/hx of osteomyelitis in the heel; per H&P & order 09/04/17
--- NOTE | 2017-09-05 10:48 | GCON ---
[f rep st] CONSULTATION INFECTIOUS DISEASE CONSULTATION DATE OF CONSULTATION: 09/05/2017 REFERRING PHYSICIAN: Cindy Luther MD REASON FOR CONSULTATION: Right lower extremity cellulitis with wounds for further evaluation. CHIEF COMPLAINT: Right leg redness, swelling, and draining wounds. 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 He started to have fevers with shaking chills. He thought he had influenza. He had his aide come in and help him, and he started taking in fluids and eating better. By the next day, he started to feel a little bit better, but he was still febrile to 103, and then he noticed his right leg was red. He started to elevate it, but then he came in for further evaluation. He had an ankle x-ray done, which showed post surgical changes of the posterior calcaneus and a possible origin at the inferior tip of the lateral malleolus, which could be osteomyelitis. He had an ultrasound of the right lower extremity, which was negative for a DVT. His chest x-ray did not show evidence of pneumonia. He did come in with a leukocytosis of 17,000 with a left shift and febrile to 39.1 this morning. He was given a dose of vancomycin, Invanz yesterday in the ER, and vancomycin was continued. He feels generally better today than yesterday. He does not have any more shaking chills. He states that the redness of his leg has actually improved significantly. I have reviewed pictures on his phone that he took at the onset of the redness, and it does look significantly better. He states that he gets his wounds changed by a home health nurse and last had it changed on . He puts Lili and Hydrofera Blue within the wounds. He actually had an appointment [facility]. He sees them every 2 weeks. Upon looking at his pictures of his wounds recently, he was noted to have some slough overlying the wounds with some necrotic edges. Infectious Disease is now consulted for further evaluation and opinion on the above. REVIEW OF SYSTEMS: GENERAL: Fevers and shaking chills. HEAD: No headaches. EYES: No change in vision. ENT: No sore throat, difficulty swallowing, ear pain, or ear drainage. CARDIOVASCULAR: Denies any chest pain. RESPIRATORY: Denies any shortness of breath, cough, or sputum production. ABDOMEN: No nausea, vomiting, or pain involving the abdomen. He does a bowel protocol Mondays and . No acute changes. He has a suprapubic catheter. LOWER EXTREMITIES: Acute swelling of the right lower extremity as mentioned above. Chronic wounds. Rest of 10-point review of systems essentially negative, except for above. 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 PAST SURGICAL HISTORY: Significant for suprapubic catheter, partial resection of the right heel. ALLERGIES: To Cipro, which gives him hives, although he states he has tolerated Levaquin on multiple occasions without any adverse reactions. SOCIAL HISTORY: He lives independently. Denies tobacco use. Drinks alcohol occasionally. He uses marijuana occasionally. No illicit drugs. FAMILY HISTORY: Significant for colon cancer and prostate cancer; colon cancer of his father, prostate cancer of his grandfather. MEDICATIONS: As per OCT. PHYSICAL EXAMINATION: VITAL SIGNS: Temperature current 38.0, T-max today 39.1 , pulse 99, blood pressure 95/55. Saturations are 92% on room air. Respiratory rate is 16. GENERAL: Patient is resting in bed in no acute respiratory distress. Awake, alert, and oriented x3. HEENT: Head is normocephalic, atraumatic. Eyes: Conjunctival injection mild. No conjunctival petechiae. Oropharynx is clear. There is no posterior erythema or thrush. CARDIOVASCULAR: S1, S2. Regular rate and rhythm. No murmurs appreciated. RESPIRATORY: Clear to auscultate anteriorly. No rhonchi or rales appreciated. ABDOMEN: Positive bowel sounds in all 4 quadrants. Soft, nontender, nondistended. No obvious organomegaly appreciated. LOWER PELVIS: He had a suprapubic catheter in place. EXTREMITIES: Right lower extremity edema with significant improvement in the swelling as depicted by significant wrinkling noted. He has erythema from the foot to the mid thigh, which is more light pink now compared to his pictures that were more deeply red. He has wounds noted on the medial and lateral aspect of the ankle. The medial aspect has some overlying slough with minor area of necrotic edge. There is no obvious tunneling of the wound with minimal undermining. Lateral aspect of the wound with overlying slough. There is undermining of the edges almost all around. There is erythema around the wounds bilaterally and mild ecchymosis on the posterior heel. LABORATORY/IMAGING DATA: White blood cell count is 11.5, hemoglobin 10.5, platelets 224. Neutrophil count is 83.7. Sodium 138, potassium 3.9, chloride 106, bicarb 23. BUN is 9, creatinine 0.8. Blood cultures x2 sets are pending. Urine culture is pending. Urinalysis with 1+ blood, negative nitrites, 2+ leukocyte esterase, urine WBCs 5 -10. Imaging results have all been reviewed by me and are stated above. ASSESSMENT: 1. Right lower extremity cellulitis. 2. Right lower extremity chronic wounds involving the medial and lateral aspect of the ankle with undermining edges and drainage; rule out osteomyelitis. 3. Cipro allergy with hives. PLAN: At this point in time, agree with continuing with vancomycin. Would continue with broad coverage, so will add back a broader agent. Blood cultures in progress. Will add Zosyn 4.5 g q.6 hours. I have obtained wound cultures from both the medial and lateral wounds and will send those for cultures. Recommend an MRI of the ankle to further evaluate for osteomyelitis. Add Liver function tests and c-reactive protein. Recommend wound care to help address wounds involving the ankle along with the sacrum. Recheck labs. Follow vancomycin trough. Plan of care was discussed with the patient in detail. Care was coordinated with the nurse and the hospitalist team. I thank you very much for providing this opportunity to care for your patient in consultation. Greater than 70 minutes was spent in care and counseling of the patient. /[id number]/MODL MTDD
--- NOTE | 2017-09-05 11:34 | HOSPPROG ---
Hospitalist Progress Note Assessment/Plan: Sepsis secondary to LE cellulitis - (leukocytosis, HR, SSTI, elevated lactate). Wound Cx obtained today by ID, 4+ GPC's on gram stain. -MRI pending to r/o osteo -Cont broad spectrum atbx with Zosyn / Vanc per ID -elevate leg -SBP a bit low in the 90's, resume IVF's, prn bolus Chronic LE ulcers - Cx's pending, wound care C5-6 incomplete quad - turn q2h Pressure injury - wound care Urinary retention - chronic SPC H/O DVT - on coumadin, INR therapeutic. Pharmacy to dose. Full code Dispo - cont inpt Subjective: Pt feels ok. No fevers. No pain. Denies CP or SOB. He is friendly, conversive, no complaints. Objective: Vital Signs Temp Pulse Resp BP Pulse Ox 38.0 C 99 16 95/55 L 92 09/05/17 08:00 09/05/17 08:00 09/05/17 08:00 09/05/17 08:00 09/05/17 08:00 Laboratory Results 09/05/17 05:21 09/05/17 05:21 09/04/17 09/05/17 09/06/17 05:59 05:59 05:59 Intake Total 3400 Output Total 1950 Balance 1450 PT 24.1 SEC (12.0-15.0) H 09/04/17 19:23 INR 2.16 (0.83-1.16) H 09/04/17 19:23 - Physical Exam Constitutional: no apparent distress Eyes: PERRL Ears, Nose, Mouth, Throat: moist mucous membranes Cardiovascular: regular rate and rhythym Respiratory: no respiratory distress, clear to auscultation Gastrointestinal: normoactive bowel sounds, soft, non-tender abdomen Skin: other (RLE wounds dressed, no purulence, patchy erythema and warmth extending to mid-thigh, more confluent erythema posteriorly) Musculoskeletal: other (C5 quad) Neurologic: AAOx3 Psychiatric: interacting appropriately ICD10 Worksheet Patient Problems: Problems Problem Status Onset Acute osteomyelitis of right calcaneus Acute Cellulitis of right ankle Acute 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 Decubitus ulcer of right heel Acute Quadriplegia, C5-C7 incomplete Acute
[2017-09-05] MEDS ORDERED: NS W/ 20 KCl/L 1,000 ML IV SCH (12:00)
[2017-09-05] MEDS: PIPERACILLIN/TAZO 4.5 GM/DEX 100 ML IV SCH ×3 (12:39→23:04)
[2017-09-05] MEDS ORDERED: WARFARIN SODIUM 5 MG TAB PO SCH (16:00)
--- NOTE | 2017-09-05 16:10 | WOCRNPDOC ---
TERRI Advanced Assessment Note - Skin Integrity Problem, Advanced Assess Right Medial Ankle Pressure Injury Dressing Type: Adaptic Touch, Kerlix Dressing Description: Intact Exudate Amount: Minimal Exudate Color: Reddish/Yellow Exudate Characteristic(s): Serosanguinous Integumentary Issue Intervention: Dressing Changed, Mechanical Debridement (w/ NS and gauze) Meredith Wound Tissue: Blanching, Erythema, Hot, Swollen Meredith Wound Swelling: Moderate Wound Bed Color: Red, Yellow Wound Bed Constitution: Red/[place] - Non Granular Tissue (80%), Undermining ( 0.3cm from 11-2 o'clock), Adhered Slough (20%) Site Odor: Slight Site Measurement - Head-to-Toe Length X Width X Depth (cm): 1.5cmx1.2cmx0.2cm Pressure Injury Stage: Stage 3 Pressure Injury Present on Admit: Yes (in H&P) Extremity Temperature: Warm Skin Integrity Problem Comment: Patient well-known to wound care, r/t chronic pressure injuries. Wound bed itself is mostly non-granulating smooth tissue w/ some adhered slough along the proximal aspect. No bone palpable. Significant erythema periwound w/ accompanying swelling. Concerned about dark purple coloring of periwound, which could indicate a deeper tissue injury. Will continue to follow. Off-loading heel boots ordered for both feet, to be worn continuously. P500 off-loading mattress ordered. Right Lateral Ankle Pressure Injury Dressing Type: Adaptic Touch, Kerlix Dressing Description: Intact Exudate Amount: Minimal Exudate Color: Reddish/Yellow Exudate Characteristic(s): Serosanguinous Integumentary Issue Intervention: Dressing Changed Meredith Wound Tissue: Blanching, Ecchymotic, Erythema, Swollen Meredith Wound Swelling: Moderate Wound Bed Color: Red Wound Bed Constitution: Red/[place] - Non Granular Tissue Site Odor: Slight Site Measurement - Head-to-Toe Length X Width X Depth (cm): 2cmx1.8cmx0.3cm Pressure Injury Stage: Stage 3 Pressure Injury Present on Admit: Yes (in H&P) Skin Integrity Problem Comment: Chronic, non-healing stage 3 pressure injury. No significant necrosis in wound bed, but tissue is dark red, boggy. Erythema and dark purple, ecchymotic-like tissue periwound, concerning for tissue damage. Patient reports wearing off-loading boot on this foot continuously at home, and order placed for him to wear them continuously here. Will follow-up on Monday for next dressing change. Left Sacrum Pressure Injury Dressing Type: Allevyn Life, Mepilex Dressing Description: Intact Exudate Amount: Minimal Exudate Color: Reddish/Yellow Exudate Characteristic(s): Serosanguinous Integumentary Issue Intervention: Dressing Changed Meredith Wound Tissue: Blanching, Erythema, Intact Meredith Wound Swelling: Mild Wound Bed Color: Red, Yellow Wound Bed Constitution: Red/[place] - Non Granular Tissue (50%), Adhered Slough (50 %) Site Odor: Moderate Site Measurement - Head-to-Toe Length X Width X Depth (cm): 1.7cmx1.6cmx0.2cm Pressure Injury Stage: Stage 3 Pressure Injury Present on Admit: Yes (in H&P) Skin Integrity Problem Comment: Chronic, non-healing full-thickness pressure injury w/ no underlying structures visible. Wound bed mix of 50/50 slough and non-granulating tissue. There is some darker, red tissue periwound, presently blanching, but concerning for deeper tissue injury. Specialty mattress was placed this afternoon, and patient on turns q2 and TAPS. Sacral dressing applied , and patient repositioned on R side. Wound care will follow up again on 09/08. Left Lateral Ankle Pressure Injury Dressing Type: Open to Air Exudate Amount: None Exudate Characteristic(s): None Meredith Wound Tissue: Intact Meredith Wound Swelling: None Wound Bed Color: Red Site Measurement - Head-to-Toe Length X Width X Depth (cm): [id number] Pressure Injury Stage: Stage 1 Pressure Injury Present on Admit: Yes Skin Integrity Problem Comment: Small, discrete area of non-blanching erythema noted on patient's L lateral malleolus, consistent w/ stage 1 pressure injury. Given patient's history, will initiate aggressive off-loading and pressure- relieving measures, including off-loading heel boots continuously. Wound care will continue to follow.
[2017-09-06] MEDS: ACETAMINOPHEN 325 MG TAB PO PRN ×3 (03:16→23:56)
[2017-09-06 06:06] LABS: PLATELET COUNT 205 10^3/uL (150-400)
[2017-09-06] MEDS: PIPERACILLIN/TAZO 4.5 GM/DEX 100 ML IV SCH ×4 (06:11→23:56)
[2017-09-06] MEDS: DIAZEPAM 10 MG TAB PO SCH ×2 (09:54→20:52)
[2017-09-06] MEDS: NITROFURANTOIN 50 MG CAP PO SCH ×2 (09:54→20:51)
[2017-09-06] MEDS: BACLOFEN 20 MG TAB PO SCH ×2 (09:54→20:52)
[2017-09-06] MEDS: PANTOPRAZOLE SODIUM 40 MG TAB PO SCH (09:55)
[2017-09-06] MEDS: VANCOMYCIN 1.5 GM in D5W 250 ML IV SCH (09:55)
[2017-09-06] MEDS: OXYBUTYNIN CHLORIDE 5 MG TAB PO SCH ×2 (09:55→20:52)
--- NOTE | 2017-09-06 10:11 | ASMTCMCOM ---
CM Note CM Note Notes: Spoke w/pt re; dc poc. Pt is an incomplete quad who is familiar to [facility], he has caregivers who come to his home for about 4.5 hrs per day. He also goes weekly to the wound care clinic and is followed by Dr Perdomo. His caregiver agency is [facility] ([phone]) They provide CNAs who are overseen by an RN. In talking to pt regarding possible skilled homecare, pt only wants if there is absolutely NO copay. Unclear if pt will need IV abx, CM w/f. DC Plan: Home with current home care and weekly appointments with wound care clinic VS addition of skilled HC Date Signed: 09/06/2017 10:10 AM Electronically Signed By:Mildred Elias RN
[2017-09-06 11:06] LABS: INR 3.06 (0.83-1.16); PROTIME(PATIENT) 31.5 SEC (12.0-15.0)
--- NOTE | 2017-09-06 15:11 | PCMIDPN ---
Assessment/Plan: Assessment: Right lower extremity cellulitis-unclear etiology but given the patient has paraplegia and intermittent to chronic wounds on both the medial and lateral malleolus this is likely the cause. He is currently on vancomycin and Zosyn. The culture of his wound has only Staph aureus that may require vancomycin but his previous Staph aureus isolates were MSSA. Will discontinue vancomycin and go with Zosyn monotherapy. Will continue to evaluate improvement by appearance of right lower extremity. Plan: 1. Discontinue vancomycin. 2. Continue Zosyn at current dose. 3. Follow appearance of right lower extremity. 09/06/17 16:10 Subjective: Patient is resting in his hospital bed. Relates the tale of a unsuccessful MRI scan overnight due to his leg spasms. No further fevers or chills. He states that the redness on his right lower extremity appears to be improved. Objective: Vancomycin # 1 Zosyn # 1 Vital Signs Temp Pulse Resp BP Pulse Ox 36.3 C 90 18 112/70 94 09/06/17 12:00 09/06/17 12:00 09/06/17 12:00 09/06/17 12:00 09/06/17 12:00 Microbiology 09/05/17 08:37 Gram Stain - Final Ankle - Eswab 09/05/17 08:37 Gram Stain - Final Ankle - Eswab Laboratory Results 09/06/17 05:20 09/06/17 05:20 09/05/17 09/06/17 09/07/17 05:59 05:59 05:59 Intake Total 3400 2558 1000 Output Total 1950 4100 850 Balance 1450 -1542 150 C-Reactive Protein 222.5 mg/L (<10.0) H 09/06/17 05:20 - Physical Exam General Appearance: WD/WN, alert, no apparent distress, non-toxic, other ( Paraplegic) Respiratory: lungs clear, normal breath sounds, No respiratory distress Cardiac/Chest: regular rate, rhythm, No tachycardia Extremities: non-tender, erythema, No normal inspection (Right lower extremity with noncontiguous erythematous plaques and macules.), No necrosis Skin: normal color, warm/dry, No rash Neuro/Psych: alert, normal mood/affect, oriented x 3 ICD10 Worksheet Patient Problems: Problems Problem Status Onset Acute osteomyelitis of right calcaneus Acute Cellulitis of right ankle Acute 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 Decubitus ulcer of right heel Acute Quadriplegia, C5-C7 incomplete Acute
[2017-09-06] MEDS ORDERED: WARFARIN SODIUM 2.5 MG TAB PO ONE (16:00)
--- NOTE | 2017-09-06 18:37 | HOSPPROG ---
Hospitalist Progress Note Assessment/Plan: Assessment: 56 yo M p/w sepsis in setting of RLE cellulitis Plan: # Sepsis. POA, evidenced by autonomic dysregulation in setting of infxn w/ end- organ failure (metabolic acidosis, hypotension) - resolved # RLE cellulitis. POA, 4+ GPC's on gram stain, d/w Dr. Manuel, he recs no ortho eval at this time as there was no definitive osteo on MRI, adjust Abx to Zosyn and monitor - repeat WBC in AM - cont elevation - remains clinically unresolved, likely another 24-48hrs IV abx # Chronic LE pressure injury. POA, cont wound care # C5-6 incomplete quad - turn q2h # Urinary retention - chronic SPC # H/O DVT - on coumadin, INR therapeutic. Pharmacy to dose. Full code Diet - regular Ppx - High risk, INR > 2 Dispo - cont inpt Subjective: patient excited to get home before the super bowl, reduced sensation bilat LE Objective: Vital Signs Temp Pulse Resp BP Pulse Ox 37.3 C 78 16 111/75 95 09/06/17 15:28 09/06/17 15:28 09/06/17 15:28 09/06/17 15:28 09/06/17 15:28 Microbiology 09/05/17 08:37 Gram Stain - Final Ankle - Eswab 09/05/17 08:37 Gram Stain - Final Ankle - Eswab Laboratory Results 09/06/17 05:20 09/06/17 05:20 09/05/17 09/06/17 09/07/17 05:59 05:59 05:59 Intake Total 3400 2558 1000 Output Total 1950 4100 850 Balance 1450 -1542 150 PT 31.5 SEC (12.0-15.0) H 09/06/17 10:35 INR 3.06 (0.83-1.16) H 09/06/17 10:35 - Physical Exam Constitutional: no apparent distress, appears nourished, not in pain, No uncomfortable Cardiovascular: regular rate and rhythym, no murmur, rub, or gallop, edema (1+ bilT LE) Respiratory: no respiratory distress, no rales or rhonchi, clear to auscultation Gastrointestinal: normoactive bowel sounds, soft, non-tender abdomen, no palpable masses, No distension Skin: erythema (RLE), other (ecchymoses LLE, blotchy, blanchable) Neurologic: AAOx3, weakness (reduced RLE, absent LLE, 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
[2017-09-07 05:45] LABS: PLATELET COUNT 243 10^3/uL (150-400)
[2017-09-07] MEDS: PIPERACILLIN/TAZO 4.5 GM/DEX 100 ML IV SCH ×3 (05:50→19:27)
[2017-09-07] MEDS: ACETAMINOPHEN 325 MG TAB PO PRN ×3 (05:51→19:33)
[2017-09-07 06:03] LABS: INR 2.58 (0.83-1.16); PROTIME(PATIENT) 27.6 SEC (12.0-15.0)
[2017-09-07] MEDS: DIAZEPAM 10 MG TAB PO SCH ×2 (08:06→21:54)
[2017-09-07] MEDS: BACLOFEN 20 MG TAB PO SCH ×2 (08:06→21:54)
[2017-09-07] MEDS: OXYBUTYNIN CHLORIDE 5 MG TAB PO SCH ×2 (08:06→21:54)
[2017-09-07] MEDS: PANTOPRAZOLE SODIUM 40 MG TAB PO SCH (08:06)
[2017-09-07] MEDS: NITROFURANTOIN 50 MG CAP PO SCH ×2 (08:06→21:54)
--- NOTE | 2017-09-07 14:04 | WOCRNPDOC ---
WOCRN Advanced Assessment Note - Skin Integrity Problem, Advanced Assess Left Heel Pressure Injury Dressing Type: Open to Air Other Dressing Type: Heel boots in place Wound Bed Color: [place] (skin intact) Wound Edges: Well Defined Site Measurement - Head-to-Toe Length X Width X Depth (cm): 0.5x0.5xintact Pressure Injury Stage: Stage 1 Pressure Injury Present on Admit: No Skin Integrity Problem Comment: JUAN Kenney observed new reddened areas on patient' s heel. Heel boots removed. 3 distinct reddened areas, all non-blanching noted. Skin intact. Patient states he always wears heel boots and has worn them the entire time he has been hospitalized. He is on an appropriate surface, turn schedule and with protective heel boots in place. Wound care will round again next week to monitor these wounds. Right Heel Pressure Injury Dressing Type: Open to Air Other Dressing Type: heel boots in place Wound Bed Color: Purple, Red Wound Edges: Well Defined Site Measurement - Head-to-Toe Length X Width X Depth (cm): 1.2x1.5xDTI Pressure Injury Stage: Deep Tissue Injury (DTI) Pressure Injury Present on Admit: No (MD aware) Skin Integrity Problem Comment: Patient with new DTI to right heel. Skin remains intact but wound bed deep red and purple, especially on proximal aspect of wound. Patient on appropriate surface, turn schedule and with protective heel boots in place. Wound care will round again next week to continue to monitor.
[2017-09-07] MEDS ORDERED: LOPERAMIDE HCL 2 MG CAP PO PRN (15:52)
--- NOTE | 2017-09-07 15:57 | HOSPPROG ---
Hospitalist Progress Note Assessment/Plan: Assessment: 56 yo M p/w sepsis in setting of RLE cellulitis Plan: # Sepsis. POA, evidenced by autonomic dysregulation in setting of infxn w/ end- organ failure (metabolic acidosis, hypotension) - resolved # RLE cellulitis. POA, Enterobacter/Staph/Strep, no definitive osteo on MRI, adjusted Abx to Zosyn and monitor - leukocytosis resolved - cont elevation - remains clinically unresolved, likely another 24 IV abx, will need to d/w ID regarding whether a unifying oral agent will cover all 3 organisms vs. ongoing IV at home # Diarrhea. Likely abx-associated, get CDiff if worsening, PRN imodium # Chronic LE pressure injury. POA, evaluated w/ wound care today # C5-6 incomplete quad - turn q2h # Urinary retention - chronic SPC # H/O DVT - on coumadin, INR therapeutic. Pharmacy to dose. Full code Diet - regular Ppx - High risk, INR > 2 Dispo - ADD 2/2 pending clinical improvement of above Subjective: diarrhea today, no LE pain Objective: Vital Signs Temp Pulse Resp BP Pulse Ox 37.3 C 73 16 106/64 93 09/07/17 11:44 09/07/17 11:44 09/07/17 11:44 09/07/17 11:44 09/07/17 11:44 Microbiology 09/05/17 08:37 Gram Stain - Final Ankle - Eswab 09/05/17 08:37 Gram Stain - Final Ankle - Eswab Laboratory Results 09/07/17 05:27 09/07/17 05:27 09/06/17 09/07/17 09/08/17 05:59 05:59 05:59 Intake Total 2558 2660 1020 Output Total 4100 2775 1300 Balance -1542 -115 -280 PT 27.6 SEC (12.0-15.0) H 09/07/17 05:27 INR 2.58 (0.83-1.16) H 09/07/17 05:27 - Pending Discharge Pending Discharge Within 24 Hours: Yes Pending Discharge Date: 09/08/17 Pending Discharge Time: 11:00 - Physical Exam Constitutional: no apparent distress, not in pain, chronically ill appearing, No uncomfortable Cardiovascular: regular rate and rhythym, no murmur, rub, or gallop, edema ( trace bilat LE) Respiratory: no respiratory distress, no rales or rhonchi, clear to auscultation Gastrointestinal: normoactive bowel sounds, soft, non-tender abdomen, no palpable masses, No distension Skin: other (ulcerations bilat heels, erythematous blotches R thigh w/ blanchability, ecchymoses LLE) Neurologic: AAOx3, 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
[2017-09-07] MEDS ORDERED: WARFARIN SODIUM 5 MG TAB PO ONE ×3 (16:00→19:30)
--- NOTE | 2017-09-07 18:27 | PCMIDPN ---
Assessment/Plan: Assessment/Plan: * Right lower extremity cellulitis with bimalleolar ulcers: Moved with patient describing decreased erythema of right lower extremity. More prominent erythema on exam currently but patient is upright with leg in dependent position. Will continue Zosyn with anticipated 24-48 hours of additional IV therapy. If clinically improved over next 24-48 hours, likely can discharge with oral antibiotic therapy. 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 Elevation emphasized as important measure for treatment of cellulitis. Will need to review MRI given some subtle findings noted at lateral malleolar region. 09/07/17 18:22 09/07/17 18:28 Subjective: Patient feels like erythema over right lower extremity has decreased. Now more prominent as he has been upright for a prolonged period. Objective: Vital Signs Temp Pulse Resp BP Pulse Ox 36.5 C 69 16 113/69 96 09/07/17 16:00 09/07/17 16:00 09/07/17 16:00 09/07/17 16:00 09/07/17 16:00 Microbiology 09/05/17 08:37 Gram Stain - Final Ankle - Eswab 09/05/17 08:37 Gram Stain - Final Ankle - Eswab Laboratory Results 09/07/17 05:27 09/07/17 05:27 09/06/17 09/07/17 09/08/17 05:59 05:59 05:59 Intake Total 2558 2660 1570 Output Total 4100 2775 1950 Balance -1542 -115 -380 C-Reactive Protein 222.5 mg/L (<10.0) H 09/06/17 05:20 Zosyn # 2 Both ankle culture showing growth of Enterobacter and group C/G Streptococcus; 1 culture also with growth of MSSA Blood cultures x2 no growth - Physical Exam General Appearance: alert, no apparent distress EENT: No scleral icterus Extremities: inflammation (Right lower extremity with erythema from knee to foot ; some more violaceous/ecchymotic patches above knee; by malleolar ulcerations present without purulence and relatively clean wound beds present) Lymphatic: other (No lymphangitis right lower extremity) ICD10 Worksheet Patient Problems: Problems Problem Status Onset Acute osteomyelitis of right calcaneus Acute Cellulitis of right ankle Acute 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 Decubitus ulcer of right heel Acute Quadriplegia, C5-C7 incomplete Acute
[2017-09-07] MEDS ORDERED: WARFARIN SODIUM 5 MG TAB ONE (19:29)
[2017-09-08] MEDS: PIPERACILLIN/TAZO 4.5 GM/DEX 100 ML IV SCH ×3 (00:55→11:31)
[2017-09-08] MEDS: ACETAMINOPHEN 325 MG TAB PO PRN ×2 (04:50→11:31)
[2017-09-08 05:30] LABS: INR 2.37 (0.83-1.16); PROTIME(PATIENT) 25.9 SEC (12.0-15.0)
[2017-09-08] MEDS: NITROFURANTOIN 50 MG CAP PO SCH (08:36)
[2017-09-08] MEDS: OXYBUTYNIN CHLORIDE 5 MG TAB PO SCH (08:37)
[2017-09-08] MEDS: BACLOFEN 20 MG TAB PO SCH (08:37)
[2017-09-08] MEDS: PANTOPRAZOLE SODIUM 40 MG TAB PO SCH (08:37)
[2017-09-08] MEDS: DIAZEPAM 10 MG TAB PO SCH (08:42)
--- NOTE | 2017-09-08 10:23 | PCMIDPN ---
Assessment/Plan: 1. Right lower extremity cellulitis with bimalleolar ulcerations: Markedly better. Would like to go home. Let's give him his noon time dose of Zosyn, and discharge him on Augmentin 875 p.o. twice daily for another 7 days. He will need to follow up in Wound Care Clinic with Dr. Manuel. Infectious Disease will sign off. Thank you. Subjective: Very talkative. Eager to go home. Had some diarrhea yesterday; C diff negative. Objective: Vital Signs Zosyn 4.5 g IV q.6 hours day 3 Afebrile Temp Pulse Resp BP Pulse Ox 37.1 C 63 14 110/70 96 09/08/17 08:00 09/08/17 08:00 09/08/17 08:00 09/08/17 08:00 09/08/17 08:00 Microbiology 09/05/17 08:37 Gram Stain - Final Ankle - Eswab Wound Culture - Final Enterobacter Aerogenes Staphylococcus Aureus Strep Dysgalactiae Grp C/G 09/05/17 08:37 Gram Stain - Final Ankle - Eswab Laboratory Results 09/07/17 05:27 09/07/17 05:27 09/07/17 09/08/17 09/09/17 05:59 05:59 05:59 Intake Total 2660 1780 110 Output Total 2775 1950 2200 Balance -115 -170 -2090 C-Reactive Protein 222.5 mg/L (<10.0) H 09/06/17 05:20 Wound with Enterobacter, group C and G strep, and MSSA. - Physical Exam General Appearance: alert, no apparent distress Extremities: other (Right lower extremity much better compared to the picture he showed me on his cell phone. Some faint pinkish blanching erythema medial aspect of right inner thigh. Right pretibial area looks great, with complete resolution of cellulitis. Ulcerations on malleolar areas look clean and dry with dressings in place.) ICD10 Worksheet Patient Problems: Problems Problem Status Onset Acute osteomyelitis of right calcaneus Acute Cellulitis of right ankle Acute 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 Decubitus ulcer of right heel Acute Quadriplegia, C5-C7 incomplete Acute
[2017-09-08 11:25] VITALS: BP 108/68; PULSE 66; RESP 18; TEMP 97.8; O2SAT 95
[2017-09-08] MEDS ORDERED: DIPHENOXYLATE/ATROPINE LOMOTIL 1 TAB PO PRN (11:32)
--- NOTE | 2017-09-08 12:28 | PDDCSUM ---
Discharge Summary Discharge Summary: DISCHARGE SUMMARY FOLLOW-UP ITEMS: Reassess right lower extremity Monitor PT and INR DATE OF ADMISSION: 09/04/2017 DATE OF DISCHARGE: 09/08/2017 DISCHARGE DIAGNOSES: 1. Sepsis present on admission 2. Right lower extremity cellulitis present on admission 3. Sacral and extremity pressure injuries present on admission 4. Suspect antibiotic associated diarrhea 5. C5-C6 incomplete quadriplegia 6. Chronic urinary retention 7. History of deep venous thrombosis 8. Acute metabolic acidosis CONSULTATIONS: Infectious Disease PROCEDURES / IMAGING: Lower extremity MRI demonstrating no evidence of osteomyelitis Lower extremity ultrasound demonstrating no evidence of DVT CHIEF COMPLAINT: Acute fevers, chills, erythema SUBJECTIVE: Patient is feeling well at time of discharge, the sensation is right lower extremity has improved, he is not experiencing any chills PHYSICAL EXAM ON DISCHARGE: Systolic blood pressure is 110-120, heart rate 60, afebrile overnight, satting well on room air, alert awake oriented x3, bowel sounds are hyperactive abdomen is soft, nontender, erythema has substantially faded, he has very minimal blanching bili along the medial aspect of his right thigh and right calf, skin is dry, some scattered petechiae on the distal right lower extremity, lungs are clear to auscultation bilaterally, heart rhythm is regular regular rate LABS ON DISCHARGE: INR 2.4 HOSPITAL COURSE BY PROBLEM: 1. Sepsis. Present on admission, evidenced by autonomic dysregulation in the setting of infection with end-organ failure, notably metabolic acidosis/ischemia , hypotension. Patient was treated with IV fluids empiric IV antibiotics and was stabilized. 2. Acute metabolic acidosis. Secondary to sepsis, resolved with IV fluids. 3. Right lower extremity cellulitis. Present on admission, most likely secondary to staph and strep, enterobacter most likely a colonizer in the wound bed, patient received IV Zosyn and has substantially improved. Infectious Disease ruled out osteomyelitis with MRI, and has decided to administer 7 subsequent days of oral Augmentin. Patient will follow up in the Infectious Disease Clinic next week. He is predisposed to cellulitis in the setting of immobility as well as pressure injuries. 4. Pressure injury. Present on admission, the patient has numerous pressure injuries on his bilateral lower extremities as well as his coccyx. Full details are documented in the wound care note on presentation. The patient was receiving ongoing wound care during this hospitalization as well as offloading techniques. The patient is very honest that he does not consistently engage in pressure off loading and appropriate turnings at home. He is at risk of worsening pressure injuries given his C5-C6 incomplete quadriplegia. He has a home energy consultant to assist with activities of daily living. 5. Suspected antibiotic associated diarrhea. C diff ruled out with PCR negative, patient is receiving as needed Lomotil. 6. Chronic urinary retention. Patient has an SP catheter, the site is intact. 7. History of deep venous thrombosis. Lower extremity ultrasound demonstrated no persistent DVT, the patient's Coumadin dosage was adjusted during this hospitalization given supratherapeutic INR in the setting of antibiotics. I recommend adjusting his Coumadin down to 5 mg daily with repeat PT and INR next week prior to his Infectious Disease Clinic appointment, with further dose adjustments under the direction of his primary care provider. DISCHARGE MEDICATIONS: Please see official discharge medication reconciliation sheet in chart , continue home medications with the dose adjustment of Coumadin down 5 mg daily, addition of Augmentin 875 twice daily for 7 subsequent days, as needed Lomotil. DISCHARGE INSTRUCTIONS: Please follow up with the Infectious Disease Clinic next week, with PT and INR prior to that appointment. TIME SPENT: Greater than 30 minutes were spent on direct patient care, as well as discharge planning and preparation.
--- NOTE | 2017-09-08 13:05 | ASMTCMCOM ---
CM Note CM Note Notes: Spoke w/pt, no other home services needed. His hc agency has been notified and will meet him at home. Transportation arranged w/[place] confirmation # [id number]. They will corn picker pt at 4pm d/t his wc not being collapsible. Pt and RN notified, CM available for any changes. DC Plan: Home w/ current homecare Date Signed: 09/08/2017 01:04 PM Electronically Signed By:Mildred Elias RN
[2017-09-08] MEDS ORDERED: WARFARIN SODIUM 5 MG TAB PO ONE (16:00)
[2017-09-08] MEDS ORDERED: WARFARIN SODIUM 5 MG TAB PO SCH (16:00)
--- NOTE | 2017-09-09 14:14 | ASDISCHSUM ---
Discharge Information Plan Status:Home with No Needs Medically Cleared to Leave: Discharge Date:09/08/2017 05:51 PM CM D/C Disposition:Home, Routine, Self-Care ADT D/C Disposition:Home, Routine, Self-Care Projected Discharge Date:09/08/2017 05:51 PM Transportation at D/C:Medicaid Transportation Discharge Delay Reason: Follow-Up Date:09/08/2017 05:51 PM Discharge Slot: Final Diagnosis: Placement Information Patient Contact Information Contact Name:DARY Relationship:Loida Address: Work Phone: City: [facility] Phone: State/Zip Code: Email: Financial Information Financial Class: Primary Plan Desc:MEDICARE INPATIENT Primary Plan Number:[id number] Secondary Plan Desc:MED[place] Secondary Plan Number:[id number] Assessment Information [facility] Initial CM Assessment Living Arrangements What is your living Answers: Alone arrangement? Who do you live with? Type Of Residence What kind of residence do Answers: House you live in? Discharge Plan Comments Coordination Status Comments Notes: Pt is a 56 y/o man admitted for cellulitis. Pt is a C5-C6 quad due to a rugby accident at age 31. Pt lives w/ care providers. ID will be consulted. Pt has started iv antibiotic therapies. PT and OT has been ordered and awaiting recommendations. Needs are TBD at this time. CM to follow. Plan: TBD Date Signed: 09/05/2017 10:09 AM Electronically Signed By:AIDEN Bustamante [facility] CM Progress Note CM Note CM Note Notes: Spoke w/pt re; dc poc. Pt is an incomplete quad who is familiar to [facility], he has caregivers who come to his home for about 4.5 hrs per day. He also goes weekly to the wound care clinic and is followed by Dr Perdomo. His caregiver agency is [facility] ([phone]) They provide CNAs who are overseen by an RN. In talking to pt regarding possible skilled homecare, pt only wants if there is absolutely NO copay. Unclear if pt will need IV abx, CM w/f. DC Plan: Home with current home care and weekly appointments with wound care clinic VS addition of skilled HC Date Signed: 09/06/2017 10:10 AM Electronically Signed By:Mildred Elias RN [facility] CM Progress Note CM Note CM Note Notes: Spoke w/pt, no other home services needed. His hc agency has been notified and will meet him at home. Transportation arranged w/[place] confirmation # [id number]. They will shredder picker pt at 4pm d/t his wc not being collapsible. Pt and RN notified, CM available for any changes. DC Plan: Home w/ current homecare Date Signed: 09/08/2017 01:04 PM Electronically Signed By:Mildred Elias RN Intervention Information Intervention Type:*IM-Signed Date of Service:09/08/2017 02:34 PM Patient Type:Inpatient Staff Member:Kaylee Bravo Hours: Discipline: Severity: Comment:
== END 2017-09-08 17:51 | disposition home or self-care (01) | DRG 871 ==
LOC: F3E 23:00
PROVIDERS: ADMIT Hospitalist; ATTEND Hospitalist
DX: A41.9 Sepsis, unspecified organism (principal); G82.54 Quadriplegia, C5-C7 incomplete; L89.153 Pressure ulcer of sacral region, stage 3; L89.513 Pressure ulcer of right ankle, stage 3; L89.523 Pressure ulcer of left ankle, stage 3; L03.115 Cellulitis of right lower limb; K52.1 Toxic gastroenteritis and colitis; E87.2 Acidosis; T36.95XA Adverse effect of unspecified systemic antibiotic, initial encounter; R33.8 Other retention of urine; Z86.718 Personal history of other venous thrombosis and embolism; Z79.01 Long term (current) use of anticoagulants; Z80.42 Family history of malignant neoplasm of prostate; L89.521 Pressure ulcer of left ankle, stage 1
CPT/HCPCS: 96365; 97162-GP; 97166-GO; 97530-GP; 97535-GO; G8978-GP-CK; G8979-GP-CJ; G8987-GO-CL; G8988-GO-CK; J1335; J2543; J3370

== ENCOUNTER 2017-09-25 16:03 | Inpatient (IN) | payer OTHER, MEDICAID ==
--- NOTE | 2017-09-25 16:21 | EDPHY ---
H & P Stated Complaint: infected foot - Personal History Current Tetanus Diphtheria and Acellular Pertussis (TDAP): Yes - Medical/Surgical History Hx Asthma: No Hx Chronic Respiratory Disease: No Hx Diabetes: No Hx Cardiac Disease: No Hx Renal Disease: No Hx Cirrhosis: No Hx Alcoholism: No Hx HIV/AIDS: No Hx Splenectomy or Spleen Trauma: No Other PMH: quad-Rugby, supra pubic cath, psh- partial amp R heel 04/2016 - Social History Smoking Status: Former smoker <Rain Cardoza - Last Filed: 09/25/17 16:54> <Bassem Hart - Last Filed: 09/25/17 17:17> HPI/ROS: CHIEF COMPLAINT: "My leg is infected again" HISTORY OF PRESENT ILLNESS: 57-year-old male wheelchair-bound, history of incomplete C5-6 incomplete quadriplegia secondary to rugby injury, history of chronic bilateral lower extremity malleoli decubitus ulcers with recent admission for cellulitis, arrives by ambulance complaining of progressive erythema, induration, fever to 103 degrees F last evening as well as this morning. Concerned about progressive cellulitis. He denies: Chest pain, dyspnea, cough, URI symptoms, myalgias, abdominal pain. REVIEW OF SYSTEMS: A ten point review of systems was performed and is negative with the exception of the items mentioned in the HPI PAST MEDICAL & SURGICAL HISTORY: C5-6 incomplete quadriplegia secondary to rugby injury. Sacral extremity pressure injuries. History of DVT. Chronic Coumadin anticoagulation SOCIAL HISTORY:Patient lives by himself, has home health aides PHYSICAL EXAM (Prior to examination, patient consented to physical exam, hands were washed and my usual and customary physical exam procedures followed) 1) GENERAL: Well-developed, well-nourished, alert and oriented. Appears nontoxic answering questions appropriately smiling, pleasant. 2) HEAD: Normocephalic, atraumatic 3) HEENT: Pupils equal, round, reactive to light bilaterally. Sclera anicteric. 4) NECK: Full range of motion, no meningeal signs. 5) LUNGS: Clear auscultation bilaterally, no wheezes, no rhonchi, no retractions. 6) HEART: Regular rate and rhythm, no murmur, no heave, no gallop. 7) ABDOMEN: No guarding, no rebound, no focal tenderness, negative McBurney's, negative Sandoval's, negative Rovsing's, negative peritoneal sign, 8) MUSCULOSKELETAL: Right lower extremity: Patient has bilateral malleoli decubitus ulcers in place with erythema, induration, increased warmth proximally. No crepitus. DP PT pulses present and brisk. Left lower extremity : Lateral malleolus decubitus ulcers with no erythema or induration or lymphangitic streaking. No crepitus 9) BACK: No CVA tenderness, no midline vertebral tenderness, no fluctuance, no step-off, no obvious trauma, no visual or palpable abnormality. 10) SKIN: No rash, no petechiae. 11) Psychiatric: Patient is oriented X 3, there is no agitation. DIFFERENTIAL DIAGNOSIS: In no particular include but limited to DVT, necrotizing fasciitis, cellulitis, sepsis (Nani,Rain Aishwraya) Constitutional: Initial Vital Signs Temperature (C) 37.9 C 09/25/17 16:10 Heart Rate 120 H 09/25/17 16:10 Respiratory Rate 18 09/25/17 16:10 Blood Pressure 103/71 09/25/17 16:10 O2 Sat (%) 99 09/25/17 16:10 O2 Delivery Mode Room Air Allergies/Adverse Reactions: ciprofloxacin [From Cipro] Allergy (Verified 11/01/16 17:10) ciprofloxacin HCl [From Cipro] Allergy (Verified 11/01/16 17:10) Home Medications: Medication Instructions Recorded Baclofen [Baclofen 20 mg (*)] 40 mg PO BID 10/05/12 Diazepam [Valium 10 MG (*)] 20 mg PO BID 10/05/12 Nitrofurantoin Macrocrystal 50 mg PO BID 10/05/12 [Nitrofurantoin] Omeprazole [Prilosec 20 mg] 20 mg PO DAILY 10/05/12 Oxybutynin Chloride [Ditropan] 5 mg PO BID 10/05/12 Amoxicillin/Clavulanate Pot 875 mg PO BID #15 tab 09/08/17 [Augmentin 875 MG TAB (*)] Diphenoxylate HCl/Atrop Sulf 1 tab PO QID PRN #40 tab 09/08/17 [Lomotil Tab (*)] Warfarin Sodium [Coumadin 5MG (*)] 5 mg PO DAILY #0 09/08/17 Medical Decision Making <Rain Cardoza - Last Filed: 09/25/17 16:54> <Bassem Hart - Last Filed: 09/25/17 17:17> - Diagnostics Imaging Results: Imaging Impressions Extremity Venous Study 09/25/17 16:26 Impression: 1. No deep venous thrombosis right leg. 2. Right groin lymphadenopathy, nonspecific. Findings and recommendations discussed with Emergency Department physicianRain PAC at 17:06 hour, 09/25/2017. Final report concurs with initial preliminary interpretation. ED Course/Re-evaluation: 4:18 p.m.: Patient greeted upon arrival. I am familiar with this patient's past medical history. He currently has a progressively erythematous right lower extremity, he is febrile, tachycardic. Suspect sepsis. Reviewed his old medical records he responded well to IV Zosyn which will be initiated today and plan on admission. Discussed the case with secondary supervising physician Dr. Bassem Hart in the ER at this time who also evaluated the patient 4:53 p.m.: Consultation with Dr. Ayad Nathan who will admit patient (Rain Cardoza) Other Provider: [id number]: I assessed this patient on the behalf of HECTOR Cardoza. I have discussed this case with HECTOR Cardoza and reviewed the labs. This patient meets sepsis criteria. Patient is comfortable with plan for admission (Bassem Hart) - Data Points Laboratory Results: Laboratory Results 09/25/17 16:25 09/25/17 16:25 09/25/17 09/25/17 09/25/17 16:50 16:25 16:25 WBC 17.99 10^3/uL H 10^3/uL (3.80-9.50) RBC 4.61 10^6/uL 10^6/uL (4.40-6.38) Hgb 13.7 g/dL g/dL (13.7-17.5) Hct 41.7 % % (40.0-51.0) MCV 90.5 fL fL (81.5-99.8) MCH 29.7 pg pg (27.9-34.1) MCHC 32.9 g/dL g/dL (32.4-36.7) RDW 12.9 % % (11.5-15.2) Plt Count 340 10^3/uL 10^3/uL (150-400) MPV 9.1 fL fL (8.7-11.7) Neut % (Auto) 84.7 % H % (39.3-74.2) Lymph % (Auto) 4.7 % L % (15.0-45.0) [place] % (Auto) 9.8 % % (4.5-13.0) Eos % (Auto) 0.1 % L % (0.6-7.6) Baso % (Auto) 0.2 % L % (0.3-1.7) Nucleat RBC Rel Count 0.0 % % (0.0-0.2) Absolute Neuts (auto) 15.26 10^3/uL H 10^3/uL (1.70-6.50) Absolute Lymphs (auto) 0.84 10^3/uL L 10^3/uL (1.00-3.00) Absolute Monos (auto) 1.76 10^3/uL H 10^3/uL (0.30-0.80) Absolute Eos (auto) 0.01 10^3/uL L 10^3/uL (0.03-0.40) Absolute Basos (auto) 0.03 10^3/uL 10^3/uL (0.02-0.10) Absolute Nucleated RBC 0.00 10^3/uL 10^3/uL (0-0.01) Immature Gran % 0.5 % % (0.0-1.1) Immature Gran # 0.09 10^3/uL 10^3/uL (0.00-0.10) PT 32.1 SEC H SEC (12.0-15.0) INR 3.14 H (0.83-1.16) APTT 39.1 SEC H SEC (23.0-38.0) VBG Lactic Acid Sodium Potassium Chloride Carbon Dioxide Anion Gap BUN Creatinine Estimated GFR Glucose Calcium Total Bilirubin Urine Color Pending Urine Appearance Pending Urine pH Pending Ur Specific [place] Pending Urine Protein Pending Urine Ketones Pending Urine Blood Pending Urine Nitrate Pending Urine Bilirubin Pending Urine Urobilinogen Pending Ur Leukocyte Esterase Pending Urine Glucose Pending 09/25/17 09/25/17 16:25 16:25 WBC RBC Hgb Hct MCV MCH MCHC RDW Plt Count MPV Neut % (Auto) Lymph % (Auto) [place] % (Auto) Eos % (Auto) Baso % (Auto) Nucleat RBC Rel Count Absolute Neuts (auto) Absolute Lymphs (auto) Absolute Monos (auto) Absolute Eos (auto) Absolute Basos (auto) Absolute Nucleated RBC Immature Gran % Immature Gran # PT INR APTT VBG Lactic Acid 3.3 mmol/L H mmol/L (0.7-2.1) Sodium 135 mEq/L mEq/L (135-145) Potassium 4.2 mEq/L mEq/L (3.5-5.2) Chloride 98 mEq/L mEq/L (97-110) Carbon Dioxide 23 mEq/l mEq/l (22-31) Anion Gap 14 mEq/L mEq/L (8-16) BUN 13 mg/dL mg/dL (7-23) Creatinine 0.9 mg/dL mg/dL (0.7-1.3) Estimated GFR > 60 Glucose 139 mg/dL H mg/dL (70-100) Calcium 9.1 mg/dL mg/dL (8.5-10.4) Total Bilirubin 0.8 mg/dL mg/dL (0.1-1.4) Urine Color Urine Appearance Urine pH Ur Specific [place] Urine Protein Urine Ketones Urine Blood Urine Nitrate Urine Bilirubin Urine Urobilinogen Ur Leukocyte Esterase Urine Glucose Medications Given: Discontinued Medications Piperacillin/Tazobactam/Dextrose (Zosyn 3.375 Gm (Premix)) 50 mls @ 100 mls/hr IV EDNOW ONE PRN Reason: Protocol Stop: 09/25/17 16:51 Last Admin: 09/25/17 17:01 Dose: 50 mls Sodium Chloride (Ns) 2,700 mls @ 5,400 mls/hr 30 ml/kg infuse over 30 min ( 2700 ml) IV EDNOW ONE PRN Reason: Protocol Stop: 09/25/17 16:51 Last Admin: 09/25/17 16:53 Dose: 2,700 mls Departure <Rain Cardoza - Last Filed: 09/25/17 16:54> <Bassem Hart - Last Filed: 09/25/17 17:17> - Departure Disposition: [facility] Inpatient Acute Clinical Impression: Quadriplegia, C5-C7 incomplete, Cellulitis of right ankle Decubitus ulcer of right heel Qualifiers: Pressure ulcer stage: unspecified pressure ulcer stage Qualified Code(s): L89.619 - Pressure ulcer of right heel, unspecified stage Condition: Fair Report Scribed for: Bassem Hart Report Scribed by: Kassidy Page Date of Report: 09/25/17 Time of Report: 17:17 <Bassem Hart - Last Filed: 09/25/17 17:17>
[2017-09-25] MEDS ORDERED: NS 2,700 ML IV ONE (16:22)
[2017-09-25] MEDS ORDERED: PIPERACILLIN/TAZO 3.375 GM/DEX 50 ML IV ONE (16:22)
[2017-09-25 16:35] LABS: PLATELET COUNT 340 10^3/uL (150-400)
[2017-09-25 16:45] LABS: INR 3.14 (0.83-1.16); PROTIME(PATIENT) 32.1 SEC (12.0-15.0)
[2017-09-25] MEDS ORDERED: ONDANSETRON DISINTEGRATING 4 MG TAB PO PRN (17:23)
[2017-09-25] MEDS ORDERED: ONDANSETRON 4 MG/2 ML VIAL IVP PRN (17:23)
[2017-09-25] MEDS ORDERED: VANCOMYCIN HCL/NORMAL SALINE 250 ML IV SCH (17:30)
[2017-09-25] MEDS ORDERED: DIAZEPAM 5 MG TAB PO ONE (17:37)
[2017-09-25] MEDS ORDERED: PIPERACILLIN/TAZO 3.375 GM/DEX 50 ML IV SCH (18:00)
--- NOTE | 2017-09-25 18:13 | GHP ---
[f rep st] HISTORY AND PHYSICAL DATE OF ADMISSION: 09/25/2017 HISTORY OF PRESENT ILLNESS: The patient is a pleasant 57-year-old gentleman with C5-C6 incomplete qu adriplegia secondary to a rugby accident, and recent admission to the hospital for right lower extrem ity cellulitis, who presents with fever to 103 yesterday and rapidly expanding cellulitis of his righ t lower extremity. He has chronic wounds on his medial and lateral malleoli as well as his coccyx, a nd these are essentially unchanged. He has had fever. He has not had urgency, frequency, dysuria. He has an indwelling urinary catheter. He has had soft stool, but he performs regular bowel protocol . He has not had cough or shortness of breath. He does not have influenza type symptoms. PAST MEDICAL HISTORY: 1. C5-C6 incomplete quadriplegia. 2. History of DVT, on chronic anticoagulation. 3. Chronic leg wound with a history of IM osteomyelitis in heel. 4. Recent right lower extremity cellulitis. 5. Chronic urinary retention with suprapubic catheter. SOCIAL HISTORY: Lives independently with caregivers. No tobacco. Occasional alcohol. Occasional m arijuana. No illicit drugs. FAMILY HISTORY: Reviewed for prostate cancer. REVIEW OF SYSTEMS: Complete 10-point review of systems conducted, negative except as noted in the HP I. ALLERGIES: Ciprofloxacin. HOME MEDICATIONS: Augmentin, baclofen, diazepam, Lomotil, nitrofurantoin, omeprazole, oxybutynin, an d warfarin. PHYSICAL EXAMINATION: PRESENTING VITALS: Temp 37.9, pulse 120. Blood pressure 103/71, which is abo ut his baseline. Breathing at 18 times a minute, 98% on room air. GENERAL: No acute distress. LETICIA NT: Sclerae anicteric. Oropharynx clear. Mucous membranes are moist. NECK: Supple, without lymph adenopathy or JVD. LUNGS: Clear to auscultation bilaterally. HEART: S1, S2, and tachycardic. ABD OMEN: Soft, nontender, nondistended. Suprapubic catheter is clean, dry and intact. EXTREMITIES: R ight lower extremity shows cellulitis throughout his foot with edema. He has a significant amount of erythema up to the ankle. His ulcers present on admission are on the medial and lateral malleoli. SKIN: Notable for a sacral decubitus ulcer with good granulation tissue at the base. It does not ap pear infected. It is also present on admission. NEUROLOGIC: Incomplete quadriplegia. LABS: White count of 18 with a left shift. It was 5 two and a half weeks ago. Hematocrit 42, plate lets 340,000. INR is 3.1. Venous lactate is elevated at 3.3. Chemistry is sodium 135, potassium 4. 2, chloride 98, bicarb 23, BUN 13, creatinine 0.9, glucose 139. I have discussed the case with Dr. Jordan Cardoza. There is no imaging. I have discussed the case wit h Dr. Bassem Manuel. ASSESSMENT/PLAN: A 57-year-old gentleman with recurrent right lower extremity cellulitis and sepsis. 1. Sepsis: Patient has received volume. His blood cultures have been drawn. The source is his leg . He was started on antibiotics. He does not require pressors. I will repeat a lactate. Did trend to normal. 2. Right lower extremity cellulitis: I have started him on vancomycin and Zosyn. Previous wound cu lture shows Enterobacter, Staph aureus, and Strep dysgalactiae. The Staph aureus is MSSA. Will star t vancomycin in the short term. I think we can hold on imaging. 3. Incomplete quadriplegia: I have written for his baclofen and his Valium. 4. Question osteomyelitis. I have ordered an MRI for the morning given the recurrence of this after stopping antibiotics. I worry that this has developed. 5. Prophylaxis: Therapeutically anticoagulated. 6. History of venous thromboembolism: Continue his warfarin and follow his INR daily. DISPOSITION: Inpatient status. /[id number]/MODL
[2017-09-25] MEDS: VANCOMYCIN 1 GM in NS 250 ML IV SCH (18:38)
[2017-09-25] MEDS: ACETAMINOPHEN 325 MG TAB PO PRN ×2 (18:51→22:45)
[2017-09-25] MEDS ORDERED: BACLOFEN 20 MG TAB PO SCH (21:00)
[2017-09-25] MEDS ORDERED: IBUPROFEN 600 MG TAB PO ONE (21:53)
[2017-09-25] MEDS: NS 1,000 ML IV SCH (22:46)
[2017-09-26] MEDS: ACETAMINOPHEN 325 MG TAB PO PRN ×4 (02:57→19:47)
[2017-09-26] MEDS: PIPERACILLIN/TAZO 3.375 GM/DEX 50 ML IV SCH ×3 (04:19→17:06)
[2017-09-26 04:47] LABS: PLATELET COUNT 242 10^3/uL (150-400)
[2017-09-26 04:54] LABS: INR 3.77 (0.83-1.16); PROTIME(PATIENT) 36.9 SEC (12.0-15.0)
[2017-09-26] MEDS: VANCOMYCIN 1 GM in NS 250 ML IV SCH (05:50)
--- NOTE | 2017-09-26 08:11 | HOSPPROG ---
Hospitalist Progress Note Assessment/Plan: #Acute sepsis: -leg cellulitis. Blood/urine cultures pending -IV Zosyn, stop Vanc #Acute right leg cellulitis with chronic bimalleolar wounds: present on admission -last culture with Enterobacter, MSSA, Strep dysgalactaie. Followed in wound clinic -concern for osteo. Obtain CT since MRI difficult to MRI with contracture/spasms -Dr. Perdomo and Dr. Barreto will evaluate. -wound care #Chronic sacral wound: POA. Wound care #Pyuria: may be colonization with jordan. 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 Cont home meds #Supratherapeutic INR: hold coumadin #Diet: regular #DVT: Coumadin #Disp: warrants inpatient admission for IV abx, ID and surgical eval. Discussed case with Dr. Barreto and Conor Subjective: "cold all over" Objective: Vital Signs Temp Pulse Resp BP Pulse Ox 37.8 C 101 H 18 118/56 L 93 09/26/17 04:00 09/26/17 04:00 09/26/17 04:00 09/26/17 04:00 09/26/17 04:00 Laboratory Results 09/26/17 04:20 09/26/17 04:20 09/25/17 09/26/17 09/27/17 05:59 05:59 05:59 Intake Total 4900 Output Total 2650 Balance 2250 PT 36.9 SEC (12.0-15.0) H 09/26/17 04:20 INR 3.77 (0.83-1.16) H 09/26/17 04:20 - Physical Exam Constitutional: no apparent distress Eyes: PERRL Ears, Nose, Mouth, Throat: moist mucous membranes Cardiovascular: regular rate and rhythym, no murmur, rub, or gallop Respiratory: no respiratory distress, no rales or rhonchi Genitourinary: jordan in urethra Musculoskeletal: other (right bimalleolar wounds with purulent drainage. Warmth , redness, swelling of foot and ankle. Left heel with small closed wound. 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
[2017-09-26] MEDS ORDERED: DIPHENOXYLATE/ATROPINE LOMOTIL 1 TAB PO PRN (08:17)
[2017-09-26] MEDS: BACLOFEN 20 MG TAB PO SCH ×2 (08:41→20:17)
[2017-09-26] MEDS: OXYBUTYNIN CHLORIDE 5 MG TAB PO SCH ×2 (08:41→20:17)
[2017-09-26] MEDS: PANTOPRAZOLE SODIUM 40 MG TAB PO SCH (08:41)
[2017-09-26] MEDS: DIAZEPAM 10 MG TAB PO SCH ×2 (08:47→20:17)
[2017-09-26] MEDS ORDERED: WARFARIN SODIUM 5 MG TAB PO SCH (09:00)
[2017-09-26] MEDS ORDERED: Herbals/Supplements -Info Only PO SCH (09:00)
--- NOTE | 2017-09-26 09:49 | ASMTCASEMG ---
Living Arrangements What is your living Answers: Alone arrangement? Who do you live with? Type Of Residence What kind of residence do Answers: House you live in? Discharge Plan Comments Coordination Status Comments Notes: Pt is a 57 y/o man admitted for right lower extremity cellulitis. Pt is a quadriplegic. Pt was recently here on 09/04/17 to 09/08/17 for cellulitis. Pt lives independently w/ caregivers. Therapies have been ordered and awaiting recommendations. Needs are TBD at this time. CM to follow. Plan: TBD Date Signed: 09/26/2017 09:48 AM Electronically Signed By:AIDEN Bustamante
[2017-09-26] MEDS ORDERED: IOPAMIDOL (ISOVUE-300) 100 ML BTL ONE (10:36)
[2017-09-26] MEDS: NS 1,000 ML IV SCH ×2 (10:42→17:02)
--- NOTE | 2017-09-26 11:05 | PDMN ---
Medical Necessity Medical necessity: Pt meets IP criteria per MD; est los >2 mn for eval/tx of sepsis r/t RLE cellulitis & possible osteomyelitis; admit for further workup/ monitoring, IV abx, IVFs, Wound Care consult & therapies; hx recent RLE cellulitis, C5-C6 incomplete quadriplegia, DVT on AC, chronic leg wound w/hx intramuscular osteomyelitis in heel, chronic urinary retention w/suprapubic catheter; per H&P & order 09/25/17
--- NOTE | 2017-09-26 12:11 | WOCRNPDOC ---
TERRI Advanced Assessment Note - Skin Integrity Problem, Advanced Assess Sacrum Pressure Injury Dressing Type: Allevyn Life Dressing Description: Intact, Saturated Exudate Amount: Minimal Exudate Characteristic(s): Serosanguinous Integumentary Issue Intervention: Dressing Changed Wound Bed Color: Red, Yellow Wound Bed Constitution: Granulation Tissue (50%), Adhered Slough (50%) Wound Edges: Attached, Not Attached, Thick Site Measurement - Head-to-Toe Length X Width X Depth (cm): 2.5x1.9x0.7 Pressure Injury Stage: Stage 3 Pressure Injury Present on Admit: Yes Skin Integrity Problem Comment: Per patient wound gets frequent debridement at outpatient [facility]. Assessed with JUAN Alatorre. Report given to Williams. Will initiate plurogel to help loosen slough. Left Lateral Ankle Pressure Injury Dressing Type: Allevyn Life Dressing Description: Clean/Dry, Intact Exudate Amount: None Integumentary Issue Intervention: Visualized Under Dressing Site Measurement - Head-to-Toe Length X Width X Depth (cm): 1x0.5x0 Pressure Injury Stage: Deep Tissue Injury (DTI) Pressure Injury Present on Admit: Yes Skin Integrity Problem Comment: Intact skin. Not draining. Right Lateral Ankle Pressure Injury Dressing Type: Allevyn Life Dressing Description: Intact, Saturated Exudate Amount: Moderate Exudate Characteristic(s): Serosanguinous Integumentary Issue Intervention: Dressing Changed Meredith Wound Tissue: Erythema, Hot, Swollen, Erythema Marked by Wound concert manager Bed Color: Purple, Red, Yellow Wound Bed Constitution: Granulation Tissue (30%), Smooth Tissue (30%), Hypergranulation, Mixed Loose & Adhered Slough/Eschar (40%) Wound Edges: Not Attached Site Odor: Moderate, Foul Site Measurement - Head-to-Toe Length X Width X Depth (cm): 1.5x2x0.6 Pressure Injury Stage: Stage 3 Pressure Injury Present on Admit: Yes Skin Integrity Problem Comment: Wound bed soft and tissue is necrotic, although there are some areas of hypergranulation. Silvasorb was applied to wound bed and covered with allevyn life for time being. Will write orders for Aquacel Ag+ to help manage drainage. Right Medial Ankle Pressure Injury Dressing Type: Allevyn Life, Hydrofera Blue Ready Dressing Description: Intact, Shadowed Exudate Amount: Minimal Exudate Characteristic(s): Serosanguinous Integumentary Issue Intervention: Dressing Changed Meredith Wound Tissue: Erythema, Hot, Swollen, Erythema Marked by Wound concert manager Bed Constitution: Granulation Tissue (20%), Red/[place] - Non Granular Tissue (dark colored, unclear if this is a developing DTI within the wound bed. ) Site Measurement - Head-to-Toe Length X Width X Depth (cm): 1.5x2x0.5 Pressure Injury Stage: Stage 3 Pressure Injury Present on Admit: Yes Skin Integrity Problem Comment: Magdaleno garcia was pressurizing area with the alleyvn life over it as wound is too shallow. Will change orders to Aquacel Ag+ for now and reassess tomorrow as with the antibiotics the drainage may slow down. Right Heel Pressure Injury Dressing Type: Open to Air Wound Bed Constitution: Stable Eschar Site Measurement - Head-to-Toe Length X Width X Depth (cm): 0.6x1x0 Pressure Injury Stage: Unstageable Pressure Injury Present on Admit: Yes
--- NOTE | 2017-09-26 16:35 | PCMIDPN ---
Assessment/Plan: Assessment/Plan: * Recurrent right lower extremity cellulitis with chronic malleolar wounds: Prior admission showed growth of MSSA, group C/G Streptococcus, and Enterobacter. Rapid onset and clinical findings suggestive of beta-hemolytic streptococcal etiology. CT scan shows no evidence of bony erosion to suggest osteomyelitis. Cultures were obtained from purulence over lateral malleolar region. Will continue Zosyn pending additional culture data. Will discontinue vancomycin given recent growth of MSSA. Follow-up blood cultures as available. Time spent, greater than 35 min, of which greater than half was spent in education/counseling/coordination of care related to recurrent right lower extremity cellulitis and plan of care. Findings and plan were reviewed with Dr. Sawant. 09/26/17 16:32 09/26/17 16:34 Subjective: Patient known to our service from recent admission due to right lower extremity cellulitis with chronic malleolar ulcerations. Discharge with oral Augmentin which he completed post discharge. He notes that symptoms had improved post discharge. Over the preceding weekend, he developed the abrupt onset of fever to 103 with shaking chills. This was followed by development of erythema over right foot to below knee in a stocking distribution. He had bleeding and drainage from his ulcerations making maintenance of his dressings difficult. He was noted to be febrile with leukocytosis upon re-evaluation. He has been started empirically on vancomycin and Zosyn. Blood cultures are currently pending. He feels clinically improved since he has received IV hydration and antibiotic therapy. Infectious diseases is now asked to assist in his ongoing management. Objective: Vital Signs Temp Pulse Resp BP Pulse Ox 36.8 C 96 16 101/79 94 09/26/17 12:00 09/26/17 12:00 09/26/17 12:00 09/26/17 12:00 09/26/17 12:00 Laboratory Results 09/26/17 04:20 09/26/17 04:20 09/25/17 09/26/17 09/27/17 05:59 05:59 05:59 Intake Total 4900 1100 Output Total 2650 1250 Balance 2250 -150 Vancomycin # 1 Zosyn # 1 Blood cultures x2 pending Urine culture greater than 100,000 non lactose fermenting gram-negative rods and yeast CT of lower extremity shows no evidence of abscess or osteomyelitis - Physical Exam General Appearance: alert, no apparent distress, non-toxic EENT: No scleral icterus, No thrush Respiratory: lungs clear, No respiratory distress Cardiac/Chest: regular rate, rhythm, No systolic murmur Extremities: inflammation (Right lower extremity shows circumferential erythema from below knee to include dorsal aspect of foot and some of plantar aspect of foot; medial malleolus shows quarter-sized ulceration with overlying fibrinous slough; lateral malleolus shows quarter-sized ulceration with fibrinous slough and some purulent drainage) Abdomen: non-tender, No distended ICD10 Worksheet Patient Problems: Problems Problem Status Onset Cellulitis of right ankle Acute Decubitus ulcer of right heel Acute Quadriplegia, C5-C7 incomplete Acute Acute osteomyelitis of right calcaneus Acute 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
[2017-09-26] MEDS: PIPERACILLIN/TAZO 4.5 GM/DEX 100 ML IV SCH ×2 (17:02→22:46)
--- NOTE | 2017-09-26 18:20 | SOAPPROG ---
PARESH Progress Note Assessment/Plan: Assessment: 57 year old well known to me recurrent cellulitus RLE Now necrotic tendon and palpable bone R lateral malleolus Discussed MRI Altaf brought up BKA. I think this is reasonable as he has had chronic wounds to this extremity for 2 years Some concern about healing due to spasticity Will discuss again tomorrow Full consult to follow Plan: 09/26/17 18:18 Objective: Vital Signs Temp Pulse Resp BP Pulse Ox 36.7 C 87 16 117/68 97 09/26/17 16:00 09/26/17 16:00 09/26/17 16:00 09/26/17 16:00 09/26/17 16:00 Laboratory Results 09/26/17 04:20 09/26/17 04:20 09/25/17 09/26/17 09/27/17 05:59 05:59 05:59 Intake Total 4900 1650 Output Total 2650 1950 Balance 2250 -300 PT 36.9 SEC (12.0-15.0) H 09/26/17 04:20 INR 3.77 (0.83-1.16) H 09/26/17 04:20 ICD10 Worksheet Patient Problems: Problems Problem Status Onset Cellulitis of right ankle Acute Decubitus ulcer of right heel Acute Quadriplegia, C5-C7 incomplete Acute Acute osteomyelitis of right calcaneus Acute 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
[2017-09-27] MEDS: ACETAMINOPHEN 325 MG TAB PO PRN ×4 (02:58→23:04)
[2017-09-27] MEDS: PIPERACILLIN/TAZO 4.5 GM/DEX 100 ML IV SCH ×4 (04:56→22:51)
[2017-09-27 05:54] LABS: PLATELET COUNT 224 10^3/uL (150-400)
[2017-09-27 06:11] LABS: INR 2.35 (0.83-1.16); PROTIME(PATIENT) 25.7 SEC (12.0-15.0)
[2017-09-27] MEDS: PANTOPRAZOLE SODIUM 40 MG TAB PO SCH (08:36)
[2017-09-27] MEDS: DIAZEPAM 10 MG TAB PO SCH ×2 (08:36→21:15)
[2017-09-27] MEDS: OXYBUTYNIN CHLORIDE 5 MG TAB PO SCH ×2 (08:36→21:14)
[2017-09-27] MEDS: BACLOFEN 20 MG TAB PO SCH ×2 (08:37→21:14)
[2017-09-27] MEDS: NS 1,000 ML IV SCH (09:51)
--- NOTE | 2017-09-27 11:10 | WOCRNPDOC ---
WOCRN Advanced Assessment Note - Skin Integrity Problem, Advanced Assess Right Lateral Ankle Pressure Injury Dressing Type: Non-Bordered Foam (Aquacel Ag+ ), Packing (Aquacel Ag+ rope) Dressing Description: Intact, Saturated Exudate Amount: Excessive Exudate Characteristic(s): Sanguinopurulent, Serosanguinous Integumentary Issue Intervention: Dressing Changed, Dressing Initialed & Dated Meredith Wound Tissue: Erythema, Hot Meredith Wound Swelling: Severe Wound Bed Constitution: Red/[place] - Non Granular Tissue, Tunneling (in middle of wound 0.8 cm), Tendon Skin Integrity Problem Comment: Wound bed soft and much of the tissue is non viable. Flushed with ns and gauze. Covered bed with aquacel rope and then ankle with Aquacel foam. Patient may have BKA. Wound care will continue to follow either way to manage other wounds. Wound care will check in later this week.
--- NOTE | 2017-09-27 11:50 | HOSPPROG ---
Hospitalist Progress Note Assessment/Plan: #Sepsis secondary to recurrent leg cellulitis. Blood Cx's NGTD. UCx with pseudomonas, could be colonized with indwelling jordan. Gpc's on ankle wound Cx , recent h/o MSSA. -cont IV Zosyn, Vanc d/c'd per ID #Acute right leg cellulitis with chronic bimalleolar wounds: present on admission. Followed in wound clinic. CT with no e/o erosions to suggest osteo , but with malleolar wound palpating to bone and 4 yrs of problems with increased hospitalizations recently, surgery considering amputation per pt request. He is wheelchair bound. -last culture with Enterobacter, MSSA, Strep dysgalactaie. -IV zosyn as above -Dr. Perdomo following- considering BKA end of the week -ID following -cont wound care #Chronic sacral wound: POA. Wound care #Pyuria: Pseudomonas on UCx, may be colonization with jordan. -should be covered with Zosyn #Lactic acidosis: resolved with IVF #Leukocytosis: improved on abx #h/o DVT: coumadin held yesterday due to supratherapeutic INR, INR therapeutic today. 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 Cont home meds #Diet: regular #DVT: Coumadin #Disp: cont inpt, high risk Subjective: Pt doing ok. No fevers. No pain. He is considering BKA as he is already wheelchair bound and notes recurrent infections and problems in RLE. Objective: Vital Signs Temp Pulse Resp BP Pulse Ox 36.6 C 79 14 101/56 L 97 09/27/17 11:10 09/27/17 11:10 09/27/17 11:10 09/27/17 11:10 09/27/17 11:10 Microbiology 09/26/17 17:00 Gram Stain - Final Ankle - Swab Laboratory Results 09/27/17 04:50 09/27/17 04:50 09/26/17 09/27/17 09/28/17 05:59 05:59 05:59 Intake Total 4900 4540 250 Output Total 2650 3400 800 Balance 2250 1140 -550 PT 25.7 SEC (12.0-15.0) H D 09/27/17 04:50 INR 2.35 (0.83-1.16) H 09/27/17 04:50 - Physical Exam Constitutional: no apparent distress Eyes: PERRL Ears, Nose, Mouth, Throat: moist mucous membranes Cardiovascular: regular rate and rhythym Respiratory: no respiratory distress, clear to auscultation Gastrointestinal: normoactive bowel sounds, soft, non-tender abdomen Skin: warm, other (RLE with receding erythema, b/l malleolar wounds dressed) Musculoskeletal: other (incomplete quad) Neurologic: AAOx3 Psychiatric: interacting appropriately ICD10 Worksheet Patient Problems: Problems Problem Status Onset Cellulitis of right ankle Acute Decubitus ulcer of right heel Acute Quadriplegia, C5-C7 incomplete Acute Acute osteomyelitis of right calcaneus Acute 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
--- NOTE | 2017-09-27 15:30 | GCON ---
[f rep st] CONSULTATION DATE OF CONSULTATION: 09/26/2017 REASON FOR CONSULTATION: Right lateral malleolus wound with recurrent cellulitis. HISTORY OF PRESENT ILLNESS: The patient is a pleasant 57-year-old man with incomplete quadriplegia, who is well known to our service for chronic lower extremity wounds. He was readmitted at this time for recurrent cellulitis of his right lower extremity, thought to stem from a right lateral malleolus wound. He has struggled with wounds of his right lower extremity for the last 4 years. He had a pr evious calcanectomy of the right lower extremity and developed wounds of the medial and lateral malle olus approximately 2 years ago. This is his second hospitalization in 1 month for cellulitis. He re ports increased spasticity of his right lower extremity since he developed worsening symptoms of his right leg. 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 PAST SURGICAL HISTORY: ALLERGIES: Ciprofloxacin. SOCIAL HISTORY: He is a nonsmoker. He denies tobacco, alcohol or recreational drug use. He typical ly lives independently and has home care. FAMILY HISTORY: Noncontributory to wound. REVIEW OF SYSTEMS: Ten-point review of systems negative, aside from HPI. PHYSICAL EXAMINATION: GENERAL: Well-developed, well-nourished man in no acute distress, lying in be d. HEENT: Normocephalic, atraumatic. No hearing deficits. Pupils equal and round. No scleral ict erus. Mucous membranes moist. NECK: Trachea midline. RESPIRATORY: No increased work of breathing . CARDIOVASCULAR: 2+ peripheral edema of the right lower extremity. This is about his baseline. U nable to palpate peripheral pulses secondary to edema. SKIN: The wound on the right lateral malleol us is approximately 2 x 2 x 1 cm. I attempted to sharply debride the base of the wound and quickly f ound significant undermining anteriorly, as well as increase in depth and was able to palpate bone. There is a wound on his right medial malleolus which measures approximately 1 x 1.5 cm, 0.2 cm in dep th, with 100% healthy granulation tissue. I did not evaluate the wound on his sacrum. He had signif icant surrounding erythema of his right lower extremity and extending up to approximately mid bernal. This was marked with a pen. PSYCH: Mood and affect normal. NEURO: Incomplete quad. IMPRESSION AND PLAN: A 57-year-old man with a chronic wound of his right medial and lateral malleolu s, admitted with worsening lateral wound appearance and cellulitis. The patient brought up below-kne e amputation, which is a reasonable option for him at this time as he does not use that lower extremi ty for transfers and has had multiple hospitalizations in a short period of time, as well as worsenin g wound appearance. We will re-evaluate him tomorrow to discuss his options in more detail, but if thda mcclure decides to go this route, we can do a right below-knee amputation as soon as 09/29/2017. Tiffanie e will continue local wound care and IV antibiotics per Infectious Disease. The patient was additionally seen by Dr. Yarely Perdomo. /[id number]/MODL
--- NOTE | 2017-09-27 18:27 | PCMIDPN ---
Assessment/Plan: Assessment/Plan: * Recurrent right lower extremity cellulitis with chronic malleolar wounds: Cultures with growth of Staphylococcus aureus and group A Streptococcus. Continue Zosyn pending further culture and susceptibility noting that patient had MSSA on recent admission. Will hold off on addition of vancomycin pending susceptibility data. Agree with consideration for BKA given nonhealing wounds of both malleoli and risk of recurrent infection in the setting of nonhealing wounds. He is to discuss this further with surgical service today. Follow up blood cultures as available. * Positive urine culture with chronic indwelling Mock: Suspect this represents colonization rather than contributing to clinical presentation. Time spent, 25 min, of which greater than half was spent in education/counseling /coordination of care related to recurrent right lower extremity cellulitis and plan of care. 09/27/17 18:24 09/27/17 18:26 Subjective: Local debridement performed of malleolar wound yesterday by surgery with notation of palpable bone over lateral malleolar region. Patient has raised issue of BKA as possible therapy given chronicity of nonhealing wounds and recurrent infections. Objective: Vital Signs Temp Pulse Resp BP Pulse Ox 36.8 C 81 14 113/66 96 09/27/17 16:00 09/27/17 16:00 09/27/17 16:00 09/27/17 16:00 09/27/17 16:00 Microbiology 09/26/17 17:00 Gram Stain - Final Ankle - Swab Laboratory Results 09/27/17 04:50 09/27/17 04:50 09/26/17 09/27/17 09/28/17 05:59 05:59 05:59 Intake Total 4900 4540 2450 Output Total 2650 3400 3100 Balance 2250 1140 -650 Zosyn # 2 Wound culture with growth of Staphylococcus aureus and group A Streptococcus Blood cultures x2 no growth CT without evidence of osteomyelitis or abscess Urine culture with growth of Pseudomonas and yeast - Physical Exam General Appearance: alert, no apparent distress, non-toxic EENT: No scleral icterus, No thrush Extremities: inflammation (Right lower extremity with stable finding of erythema below knee; malleolar wounds largely improved after debridement) Abdomen: non-tender, No distended ICD10 Worksheet Patient Problems: Problems Problem Status Onset Cellulitis of right ankle Acute Decubitus ulcer of right heel Acute Quadriplegia, C5-C7 incomplete Acute Acute osteomyelitis of right calcaneus Acute 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
[2017-09-28] MEDS: ACETAMINOPHEN 325 MG TAB PO PRN ×2 (03:22→22:46)
[2017-09-28] MEDS: PIPERACILLIN/TAZO 4.5 GM/DEX 100 ML IV SCH ×4 (05:00→22:46)
[2017-09-28 05:16] LABS: PLATELET COUNT 211 10^3/uL (150-400)
[2017-09-28 05:27] LABS: INR 1.82 (0.83-1.16); PROTIME(PATIENT) 21.2 SEC (12.0-15.0)
--- NOTE | 2017-09-28 10:06 | SOAPPROG ---
PARESH Progress Note Assessment/Plan: Assessment: 57 year old well known to me recurrent cellulitus RLE Now necrotic tendon and palpable bone R lateral malleolus BKA tomorrow around 4 pm Regular diet until 8 am Clears until 11 am then NPO Discussed case with Dr. Andino who will evaluate for BOTOX hip flexer as outpatient for spacticity Altaf wants to keep his leg after amputation - pathology looking into this. Altaf also has a call into his friend who works at a mortuary to see about cost of using crematorium Will discuss case with Altaf Navarro to be fitted for stump protector post op S:No changes O: Did not examine wounds today Plan: 09/26/17 18:18 09/28/17 10:03 Objective: Vital Signs Temp Pulse Resp BP Pulse Ox 36.9 C 63 12 110/69 96 09/28/17 07:53 09/28/17 07:53 09/28/17 07:53 09/28/17 07:53 09/28/17 07:53 Microbiology 09/26/17 17:00 Gram Stain - Final Ankle - Swab Laboratory Results 09/28/17 04:22 09/28/17 04:22 09/27/17 09/28/17 09/29/17 05:59 05:59 05:59 Intake Total 4540 2950 Output Total 3400 5200 Balance 1140 -2250 PT 21.2 SEC (12.0-15.0) H 09/28/17 04:22 INR 1.82 (0.83-1.16) H 09/28/17 04:22 ICD10 Worksheet Patient Problems: Problems Problem Status Onset Cellulitis of right ankle Acute Decubitus ulcer of right heel Acute Quadriplegia, C5-C7 incomplete Acute Acute osteomyelitis of right calcaneus Acute 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
[2017-09-28] MEDS: OXYBUTYNIN CHLORIDE 5 MG TAB PO SCH ×2 (10:29→21:27)
[2017-09-28] MEDS: DIAZEPAM 10 MG TAB PO SCH ×2 (10:29→21:27)
[2017-09-28] MEDS: BACLOFEN 20 MG TAB PO SCH ×2 (10:29→21:27)
[2017-09-28] MEDS: PANTOPRAZOLE SODIUM 40 MG TAB PO SCH (10:29)
[2017-09-28] MEDS ORDERED: BISACODYL 10 MG SUPP PR PRN (10:47)
--- NOTE | 2017-09-28 11:26 | ASMTCMCOM ---
CM Note CM Note Notes: Spoke w/RN, pt will have a BKA tomorrow d/t chronic LE wound. Dc needs unclear at this point, pt has current homecare w/ [facility], CM w/f DC Plan: TBD Date Signed: 09/28/2017 11:26 AM Electronically Signed By:Midlred Elias RN
[2017-09-28] MEDS: BISACODYL 10 MG SUPP PR PRN (11:27)
--- NOTE | 2017-09-28 14:27 | HOSPPROG ---
Hospitalist Progress Note Assessment/Plan: #Sepsis secondary to recurrent leg cellulitis. Blood Cx's NGTD. UCx with pseudomonas, could be colonized with indwelling jordan. staph, GAS ankle wound Cx, note recent h/o MSSA. -cont IV Zosyn per ID #Acute right leg cellulitis with chronic bimalleolar wounds: present on admission. Followed in wound clinic. CT with no e/o erosions to suggest osteo , but with malleolar wound palpating to bone and 4 yrs of problems with increased hospitalizations recently, surgery considering amputation per pt request. He is wheelchair bound. -last culture with Enterobacter, MSSA, Strep dysgalactaie. -IV zosyn as above -Dr. Perdomo following- planning BKA tomorrow afternoon -ID following -cont wound care #Chronic sacral wound: POA. Wound care #Pyuria: Pseudomonas on UCx, may be colonization with jordan. 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 Cont home meds #Diet: regular #DVT: Coumadin #Disp: cont inpt, high risk Subjective: Pt doing well. Has decided to proceed with BKA. No fevers. Objective: Vital Signs Temp Pulse Resp BP Pulse Ox 36.8 C 75 18 129/69 H 95 09/28/17 11:13 09/28/17 11:13 09/28/17 11:13 09/28/17 11:13 09/28/17 11:13 Microbiology 09/26/17 17:00 Gram Stain - Final Ankle - Swab Laboratory Results 09/28/17 04:22 09/28/17 04:22 09/27/17 09/28/17 09/29/17 05:59 05:59 05:59 Intake Total 4540 2950 Output Total 3400 5200 825 Balance 1140 -2250 -825 PT 21.2 SEC (12.0-15.0) H 09/28/17 04:22 INR 1.82 (0.83-1.16) H 02/22/18 04:22 - Physical Exam Constitutional: no apparent distress Eyes: PERRL Ears, Nose, Mouth, Throat: moist mucous membranes Cardiovascular: regular rate and rhythym Respiratory: no respiratory distress, clear to auscultation Gastrointestinal: normoactive bowel sounds, soft, non-tender abdomen Skin: warm Musculoskeletal: other (partial quad with spasticity, unchanged) Neurologic: AAOx3 Psychiatric: interacting appropriately ICD10 Worksheet Patient Problems: Problems Problem Status Onset Cellulitis of right ankle Acute Decubitus ulcer of right heel Acute Quadriplegia, C5-C7 incomplete Acute Acute osteomyelitis of right calcaneus Acute 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
[2017-09-29] MEDS: PIPERACILLIN/TAZO 4.5 GM/DEX 100 ML IV SCH ×4 (04:52→23:22)
[2017-09-29 06:21] LABS: INR 1.42 (0.83-1.16); PROTIME(PATIENT) 17.5 SEC (12.0-15.0)
[2017-09-29] MEDS: BACLOFEN 20 MG TAB PO SCH ×2 (08:50→22:46)
[2017-09-29] MEDS: DIAZEPAM 10 MG TAB PO SCH ×2 (08:50→22:46)
[2017-09-29] MEDS: OXYBUTYNIN CHLORIDE 5 MG TAB PO SCH ×2 (08:50→22:46)
[2017-09-29] MEDS: PANTOPRAZOLE SODIUM 40 MG TAB PO SCH (08:51)
--- NOTE | 2017-09-29 09:49 | SOAPPROG ---
SOAP Progress Note Assessment/Plan: Assessment/Plan: 57yo M with chronic RLE wounds, admitted with recurrent cellulitis To OR today for R BKA NPO after midnight Therapeutic antibiotics Consent in chart Objective: Vital Signs Temp Pulse Resp BP Pulse Ox 36.7 C 69 16 119/66 96 09/29/17 08:03 09/29/17 08:03 09/29/17 08:03 09/29/17 08:03 09/29/17 08:03 Microbiology 09/26/17 17:00 Gram Stain - Final Ankle - Swab Laboratory Results 09/29/17 04:20 09/28/17 04:22 09/28/17 09/29/17 09/30/17 05:59 05:59 05:59 Intake Total 2950 500 Output Total 5200 4025 Balance -2250 -3525 PT 17.5 SEC (12.0-15.0) H 09/29/17 04:20 INR 1.42 (0.83-1.16) H 09/29/17 04:20 ICD10 Worksheet Patient Problems: Problems Problem Status Onset Cellulitis of right ankle Acute Decubitus ulcer of right heel Acute Quadriplegia, C5-C7 incomplete Acute Acute osteomyelitis of right calcaneus Acute 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
--- NOTE | 2017-09-29 11:25 | ASMTCMCOM ---
CM Note CM Note Notes: Chart reviewed. Patient is awaiting surgery this pm. He is worried about making indications to his aide and family as to his thoughts and in the event he were to not survive surgery then where the family might find various policies for insurance purposes, he has asked for a pad of paper and pen so he may direct his family of his choices and provisions.He is current with [facility] and id happy with this service. Will place referral for resumption of [facility] services when he is medically stable for discharge. CM to follow. Date Signed: 09/29/2017 11:18 AM Electronically Signed By:Michelle Boyer RN
[2017-09-29] MEDS ORDERED: LR 1,000 ML IV ONE ×2 (16:02→16:10)
--- NOTE | 2017-09-29 16:41 | PCMIDPN ---
Assessment/Plan: Assessment: Right lower extremity cellulitis with chronically infected ulcers. Preparing for elective BKA on the right side this afternoon. He continues to tolerate Zosyn monotherapy. Plan: 1. Continue Zosyn for coverage even passed his BKA while he is inpatient. Total duration of 7 days after surgery. Subjective: Patient is resting comfortably in his hospital bed. He notes no new complaints. Objective: Zosyn # 4 Vital Signs Temp Pulse Resp BP Pulse Ox 36.8 C 58 L 14 117/71 97 09/29/17 15:46 09/29/17 15:46 09/29/17 15:46 09/29/17 15:46 09/29/17 15:46 Microbiology 09/26/17 17:00 Gram Stain - Final Ankle - Swab Wound Culture - Final Staphylococcus Aureus Streptococcus Pyogenes Grp A Laboratory Results 09/29/17 04:20 09/28/17 04:22 09/28/17 09/29/17 09/30/17 05:59 05:59 05:59 Intake Total 2950 500 Output Total 5200 4025 3600 Balance -2250 -3525 -3600 - Physical Exam General Appearance: WD/WN, alert, no apparent distress, non-toxic, other ( Paraplegic) Respiratory: lungs clear, normal breath sounds, No respiratory distress Cardiac/Chest: regular rate, rhythm, No tachycardia Neuro/Psych: alert, normal mood/affect, oriented x 3 ICD10 Worksheet Patient Problems: Problems Problem Status Onset Cellulitis of right ankle Acute Decubitus ulcer of right heel Acute Quadriplegia, C5-C7 incomplete Acute Acute osteomyelitis of right calcaneus Acute 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
--- NOTE | 2017-09-29 16:46 | HOSPPROG ---
Hospitalist Progress Note Assessment/Plan: #Sepsis secondary to recurrent leg cellulitis. Blood Cx's NGTD. UCx with pseudomonas, could be colonized with indwelling jordan. staph, GAS ankle wound Cx, note recent h/o MSSA. -cont IV Zosyn per ID, likely treat for 1 week post-op #Acute right leg cellulitis with chronic bimalleolar wounds: present on admission. Followed in wound clinic. CT with no e/o erosions to suggest osteo , but with malleolar wound palpating to bone and 4 yrs of problems with increased hospitalizations recently, planning for BKA. He is wheelchair bound. -last culture with Enterobacter, MSSA, Strep dysgalactaie. -IV zosyn as above -Dr. Perdomo following- planning BKA this afternoon -ID following -cont wound care #Chronic sacral wound: POA. Wound care #Pyuria: Pseudomonas on UCx, may be colonization with jordan. 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 Cont home meds #Diet: regular #DVT: Coumadin held for surgery today #Disp: cont inpt, high risk Subjective: Pt doing ok. He is mentally prepared for BKA. No pain. No fevers. NPO today for OR this afternoon. Objective: Vital Signs Temp Pulse Resp BP Pulse Ox 36.8 C 58 L 14 117/71 97 09/29/17 15:46 09/29/17 15:46 09/29/17 15:46 09/29/17 15:46 09/29/17 15:46 Microbiology 09/26/17 17:00 Gram Stain - Final Ankle - Swab Wound Culture - Final Staphylococcus Aureus Streptococcus Pyogenes Grp A Laboratory Results 09/29/17 04:20 09/28/17 04:22 09/28/17 09/29/17 09/30/17 05:59 05:59 05:59 Intake Total 2950 500 Output Total 5200 4025 3600 Balance -2250 -3525 -3600 PT 17.5 SEC (12.0-15.0) H 09/29/17 04:20 INR 1.42 (0.83-1.16) H 09/29/17 04:20 - Physical Exam Constitutional: no apparent distress Eyes: PERRL Ears, Nose, Mouth, Throat: moist mucous membranes Cardiovascular: regular rate and rhythym Respiratory: no respiratory distress Gastrointestinal: soft, non-tender abdomen Skin: warm Musculoskeletal: other (incomplete quad) Neurologic: AAOx3 ICD10 Worksheet Patient Problems: Problems Problem Status Onset Cellulitis of right ankle Acute Decubitus ulcer of right heel Acute Quadriplegia, C5-C7 incomplete Acute Acute osteomyelitis of right calcaneus Acute 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
--- NOTE | 2017-09-29 18:18 | PDANEPAE ---
ANE History of Present Illness r foot chronic wound ANE Past Medical History - Cardiovascular History Hx Hypertension: No Hx Arrhythmias: No Hx Chest Pain: No Hx Coronary Artery / Peripheral Vascular Disease: No Hx CHF / Valvular Disease: No Hx Palpitations: No - Pulmonary History Hx COPD: No Hx Asthma/Reactive Airway Disease: No Hx Recent Upper Respiratory Infection: No Hx Oxygen in Use at Home: No Hx Sleep Apnea: No Sleep Apnea Screening Result - Last Documented: Positive - Neurologic History Neurologic History Comment: incomplete c5/6 quad - Endocrine History Hx Diabetes: No Hypothyroid: No - Renal History Hx Renal Disorders: No - Liver History Hx Hepatic Disorders: No - Other Health History Other Health History: chronic jordan - Chronic Pain History Chronic Pain: Yes (neck) ANE Review of Systems Review of systems is: negative Review of Systems: - Exercise capacity Exercise capacity: limited by disability ANE Patient History - Allergies Allergies/Adverse Reactions: ciprofloxacin [From Cipro] Allergy (Verified 11/01/16 17:10) ciprofloxacin HCl [From Cipro] Allergy (Verified 11/01/16 17:10) - Home Medications Home Medications: Baclofen [Baclofen 20 mg (*)] 40 mg PO BID 10/05/12 [Last Taken 09/25/17 AM dose ] Diazepam [Valium 10 MG (*)] 20 mg PO BID 10/05/12 [Last Taken 09/25/17] Nitrofurantoin Macrocrystal [Nitrofurantoin] 50 mg PO BID 10/05/12 [Last Taken 09/25/17 AM dose] Omeprazole [Prilosec 20 mg] 20 mg PO DAILY 10/05/12 [Last Taken 09/25/17] Oxybutynin Chloride [Ditropan] 5 mg PO BID 10/05/12 [Last Taken 09/25/17 AM dose ] Acetaminophen [Tylenol 325mg (*)] 650 mg PO Q4H PRN 09/25/17 [Last Taken ] Herbals/Supplements -Info Only 1 ea PO DAILY 09/25/17 [Last Taken Unknown] - NPO status NPO Status: no food or drink >8 hours NPO Since - Liquids (Date): 09/29/17 NPO Since - Liquids (Time): 11:00 NPO Since - Solids (Date): 09/29/17 NPO Since - Solids (Time): 08:00 - Anes Hx Anes Hx: no prior problems - Smoking Hx Smoking Status: Former smoker - Alcohol Use Alcohol Use: None - Family Anes Hx Family Anes Hx: none ANE Labs/Vital Signs - Labs Result Diagrams: 09/29/17 04:20 09/28/17 04:22 - Vital Signs Blood Pressure: 117/71 Heart Rate: 58 Respiratory Rate: 14 O2 Sat (%): 97 Height: 180.34 cm Weight: 90.718 kg ANE Physical Exam - Airway Mallampati Score: Class 2 Mouth exam: normal dental/mouth exam - Pulmonary Pulmonary: no respiratory distress - Cardiovascular Cardiovascular: regular rate and rhythym - ASA Status ASA Status: III ANE Anesthesia Plan Anesthesia Plan: GA w LMA
[2017-09-29] MEDS ORDERED: MIDAZOLAM 2 MG/2 ML VIAL IVP ONE (18:19)
[2017-09-29] MEDS ORDERED: MIDAZOLAM 2 MG/2 ML VIAL ONE (18:21)
[2017-09-29] MEDS ORDERED: BUPIVACAINE 0.5% 10 ML SDV ONE (18:25)
[2017-09-29] MEDS ORDERED: LIDOCAINE 2% 100 MG/5 ML SYR ONE (18:26)
[2017-09-29] MEDS ORDERED: fentaNYL 100 MCG/2 ML INJ ONE (18:27)
[2017-09-29] MEDS ORDERED: PROPOFOL 200 MG/20 ML VIAL ONE (18:27)
[2017-09-29] MEDS ORDERED: DESFLURANE 240 ML BOTTLE IH ONE (19:28)
--- NOTE | 2017-09-29 20:16 | POSTOPPROG ---
Post Op Note Date of Operation: 09/29/17 Surgeon: Yarely Perdomo Anesthesiologist: eric Anesthesia: GET(General Endotracheal) Pre-op Diagnosis: chronic wound, arm mass Post-op Diagnosis: "" Indication: 57 yo with chronic wounds to rle and arm mass Procedure: R BKA and excision of 3 cm arm mass Findings: multiple wounds Inf/Abcess present in the surg proc area at time of surgery?: Yes Depth: Deep Incisional (Fascial) EBL: 100-500 Drains: Wound Vac Specimen(s): arm mass and wound vac (incisional)
[2017-09-29] MEDS ORDERED: HYDROCODONE/APAP 5/325 TAB PO PRN (20:18)
[2017-09-29] MEDS ORDERED: OXYCODONE/APAP 5/325 TAB PO PRN ×2 (20:18→20:23)
[2017-09-29] MEDS ORDERED: NALOXONE HCL 0.4 MG/ML INJ IVP PRN (20:23)
[2017-09-29] MEDS ORDERED: ACETAMINOPHEN 500 MG TAB PO PRN (20:23)
[2017-09-29] MEDS ORDERED: HYDROmorphONE/DILAUDID 1 MG/ML INJ IVP PRN (20:23)
[2017-09-29] MEDS ORDERED: ALBUTEROL 3 ML DEYVIAL IH PRN (20:23)
[2017-09-29] MEDS ORDERED: fentaNYL 100 MCG/2 ML INJ IVP PRN (20:23)
[2017-09-29] MEDS ORDERED: ONDANSETRON 4 MG/2 ML VIAL IVP PRN (20:23)
--- NOTE | 2017-09-29 20:25 | POSTANESTH ---
Post Anesthetic Evaluation Cardiovascular Status: Normal, Stable Respiratory Status: Normal, Stable Level of Consciousness/Mental Status: Can Participate in Eval Pain Control: Adequate, Prn Tx Ordered Nausea/Vomiting Control: Adequate, Prn Tx Ordered Complications Possibly Related to Anesthesia: None Noted
[2017-09-29] MEDS: ACETAMINOPHEN 325 MG TAB PO PRN (22:46)
[2017-09-30] MEDS: PIPERACILLIN/TAZO 4.5 GM/DEX 100 ML IV SCH ×4 (04:06→23:39)
[2017-09-30] MEDS: ACETAMINOPHEN 325 MG TAB PO PRN (04:23)
[2017-09-30 05:09] LABS: INR 1.21 (0.83-1.16); PROTIME(PATIENT) 15.5 SEC (12.0-15.0)
[2017-09-30] MEDS: OXYBUTYNIN CHLORIDE 5 MG TAB PO SCH ×2 (10:11→21:27)
[2017-09-30] MEDS: PANTOPRAZOLE SODIUM 40 MG TAB PO SCH (10:11)
[2017-09-30] MEDS: BACLOFEN 20 MG TAB PO SCH ×2 (10:12→21:27)
[2017-09-30] MEDS: DIAZEPAM 5 MG TAB PO SCH ×2 (10:14→21:27)
[2017-09-30] MEDS: DIAZEPAM 10 MG TAB PO SCH (10:27)
--- NOTE | 2017-09-30 13:02 | HOSPPROG ---
Hospitalist Progress Note Assessment/Plan: #Sepsis secondary to recurrent leg cellulitis. Blood Cx's NGTD. UCx with pseudomonas, could be colonized with indwelling jordan. staph, GAS ankle wound Cx, note recent h/o MSSA. -cont IV Zosyn per ID, likely treat for 1 week post-op #S/P BKA POD #1 for recurrent right leg cellulitis with chronic bimalleolar wounds. Followed in wound clinic. CT with no e/o erosions to suggest osteo, but with malleolar wound palpating to bone and 4 yrs of problems with increased hospitalizations recently, pt is now s/p BKA. He is wheelchair bound. -last culture with Enterobacter, MSSA, Strep dysgalactaie. -IV zosyn as above -ID following -cont wound care #Chronic sacral wound: POA. Wound care #Pyuria: Pseudomonas on UCx, may be colonization with jordan. 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 Cont home meds #Diet: regular #DVT PPLX: resume lovenox / coumadin #Disp: cont inpt, high risk Subjective: Pt doing fine post-op. Unhappy abt having to use deb lift. No pain. Eating well. Objective: Vital Signs Temp Pulse Resp BP Pulse Ox 36.4 C 71 16 102/65 95 09/30/17 12:00 09/30/17 12:00 09/30/17 12:00 09/30/17 12:00 09/30/17 12:00 Microbiology 09/26/17 17:00 Gram Stain - Final Ankle - Swab Wound Culture - Final Staphylococcus Aureus Streptococcus Pyogenes Grp A Laboratory Results 09/30/17 04:16 09/28/17 04:22 09/29/17 09/30/17 10/01/17 05:59 05:59 05:59 Intake Total 500 1550 Output Total 4025 5450 650 Balance -3525 -3900 -650 PT 15.5 SEC (12.0-15.0) H 09/30/17 04:16 INR 1.21 (0.83-1.16) H 09/30/17 04:16 - Physical Exam Constitutional: no apparent distress Eyes: PERRL Ears, Nose, Mouth, Throat: moist mucous membranes Cardiovascular: regular rate and rhythym Respiratory: no respiratory distress, clear to auscultation Gastrointestinal: normoactive bowel sounds, soft, non-tender abdomen Skin: warm Musculoskeletal: other (incomplete quad, s/p rt BKA, incision clean, wound vac on) Neurologic: AAOx3 Psychiatric: interacting appropriately ICD10 Worksheet Patient Problems: Problems Problem Status Onset Cellulitis of right ankle Acute Decubitus ulcer of right heel Acute Quadriplegia, C5-C7 incomplete Acute Acute osteomyelitis of right calcaneus Acute 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
--- NOTE | 2017-09-30 13:44 | ASMTCMCOM ---
CM Note CM Note Notes: [facility] is under [facility] medicaid that makes provisional care for client in their home. The person I spoke to states that this patient has a provision for home health aides, but nursing services do not fall under that umbrella . I called [phone] and spoke to Nick. It will be up to patient to decide on a provisional source for a higher level of senior care care. CM to follow. Date Signed: 09/29/2017 12:23 PM Electronically Signed By:Michelle Boyer RN
--- NOTE | 2017-09-30 13:48 | ASMTCMCOM ---
CM Note CM Note Notes: Patient chart reviewed. S/p RBKA. Per therapies, they are recommending inpatient rehab. Message left with Becki Marie at [facility]. He is post op day one and is a quadriplegic who normally has care at home. Will need order for evaluation. CM to follow. Date Signed: 09/30/2017 01:47 PM Electronically Signed By:Michelle Boyer RN
--- NOTE | 2017-09-30 14:21 | SOAPPROG ---
SOAP Progress Note Assessment/Plan: Assessment: 57 year old well known to me POD # 1 s/p R BKA and excision of nodule on R forearm Incisional wound vac X 1 week Discussed case with Dr. Andino who will evaluate for BOTOX hip flexer as outpatient for spacticity Altaf wants to keep his leg after amputation - pathology looking into this. Consult with Altaf from [facility] on Monday for stump protector S:Feeling well> stump appears healthy> wv to suction Plan: 09/26/17 18:18 09/28/17 10:03 09/30/17 14:20 Objective: Vital Signs Temp Pulse Resp BP Pulse Ox 36.4 C 71 16 102/65 95 09/30/17 12:00 09/30/17 12:00 09/30/17 12:00 09/30/17 12:00 09/30/17 12:00 Microbiology 09/26/17 17:00 Gram Stain - Final Ankle - Swab Wound Culture - Final Staphylococcus Aureus Streptococcus Pyogenes Grp A Laboratory Results 09/30/17 04:16 09/28/17 04:22 09/29/17 09/30/17 10/01/17 05:59 05:59 05:59 Intake Total 500 1550 Output Total 4025 5450 650 Balance 3525 -3900 -650 PT 15.5 SEC (12.0-15.0) H 09/30/17 04:16 INR 1.21 (0.83-1.16) H 09/30/17 04:16 ICD10 Worksheet Patient Problems: Problems Problem Status Onset Cellulitis of right ankle Acute Decubitus ulcer of right heel Acute Quadriplegia, C5-C7 incomplete Acute Acute osteomyelitis of right calcaneus Acute 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
[2017-09-30] MEDS ORDERED: WARFARIN SODIUM 5 MG TAB PO ONE (16:00)
--- NOTE | 2017-09-30 16:27 | PCMIDPN ---
Assessment/Plan: Assessment: Right lower extremity cellulitis with chronically infected ulcers. Status post BKA on the right side yesterday. He continues to tolerate Zosyn monotherapy. Plan: 1. Continue Zosyn for coverage even passed his BKA while he is inpatient. Total duration of 7 days after surgery. 09/30/17 16:26 Subjective: patient is resting in his hospital bed. He states he feels well. No fevers or chills. Objective: Zosyn # 5 Vital Signs Temp Pulse Resp BP Pulse Ox 35.9 C L 69 16 108/60 95 09/30/17 15:05 09/30/17 15:05 09/30/17 15:05 09/30/17 15:05 09/30/17 15:05 Microbiology 09/26/17 17:00 Gram Stain - Final Ankle - Swab Wound Culture - Final Staphylococcus Aureus Streptococcus Pyogenes Grp A Laboratory Results 09/30/17 04:16 09/28/17 04:22 09/29/17 09/30/17 10/01/17 05:59 05:59 05:59 Intake Total 500 1550 Output Total 4025 5450 1650 Balance -3525 -3900 -1650 - Physical Exam General Appearance: WD/WN, alert, no apparent distress, non-toxic Respiratory: lungs clear, normal breath sounds, No respiratory distress Skin: normal color, warm/dry, other ( right lower extremity operative site looks clean dry and intact.), No rash Neuro/Psych: alert, normal mood/affect ICD10 Worksheet Patient Problems: Problems Problem Status Onset Cellulitis of right ankle Acute Decubitus ulcer of right heel Acute Quadriplegia, C5-C7 incomplete Acute Acute osteomyelitis of right calcaneus Acute 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
[2017-09-30] MEDS: ENOXAPARIN 100 MG/ML SYR SC SCH (17:05)
[2017-10-01 05:25] LABS: INR 1.25 (0.83-1.16); PROTIME(PATIENT) 15.9 SEC (12.0-15.0)
[2017-10-01] MEDS: ENOXAPARIN 100 MG/ML SYR SC SCH ×2 (05:40→17:57)
[2017-10-01] MEDS: PIPERACILLIN/TAZO 4.5 GM/DEX 100 ML IV SCH ×4 (05:41→23:27)
[2017-10-01] MEDS: ACETAMINOPHEN 325 MG TAB PO PRN (05:44)
[2017-10-01] MEDS: OXYBUTYNIN CHLORIDE 5 MG TAB PO SCH ×2 (09:01→20:59)
[2017-10-01] MEDS: DIAZEPAM 5 MG TAB PO SCH ×2 (09:01→20:59)
[2017-10-01] MEDS: BACLOFEN 20 MG TAB PO SCH ×2 (09:01→20:59)
[2017-10-01] MEDS: PANTOPRAZOLE SODIUM 40 MG TAB PO SCH (09:01)
--- NOTE | 2017-10-01 11:45 | HOSPPROG ---
Hospitalist Progress Note Assessment/Plan: #Sepsis secondary to recurrent leg cellulitis. Blood Cx's NGTD. UCx with pseudomonas, could be colonized with indwelling jordan. staph, GAS ankle wound Cx, note recent h/o MSSA. -cont IV Zosyn per ID, treat for 1 week post-op #S/P BKA POD #2 for recurrent right leg cellulitis with chronic bimalleolar wounds. Followed in wound clinic. CT with no e/o erosions to suggest osteo, but with malleolar wound palpating to bone and 4 yrs of problems with increased hospitalizations recently, pt is now s/p BKA. He is wheelchair bound. -last culture with Enterobacter, MSSA, Strep dysgalactaie. -IV zosyn through 10/06 -ID following -cont wound vac / wound care #Chronic sacral wound: POA. Wound care #Pyuria: Pseudomonas on UCx, may be colonization with jordan. -should be covered with Zosyn #Lactic acidosis: resolved with IVF #Leukocytosis: improved on abx #h/o DVT: Initial DVT in LLE after spinal cord injury in 1992. 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 Cont home meds #Diet: regular #DVT PPLX: resume lovenox / coumadin #Disp: cont inpt, PT/OT Subjective: Pt doing fine. No complaints. Pain controlled. Objective: Vital Signs Temp Pulse Resp BP Pulse Ox 36.7 C 71 16 102/55 L 92 10/01/17 07:34 10/01/17 07:34 10/01/17 07:34 10/01/17 07:34 10/01/17 07:34 Laboratory Results 09/30/17 04:16 09/28/17 04:22 09/30/17 10/01/17 10/02/17 05:59 05:59 05:59 Intake Total 1550 1700 500 Output Total 5450 4750 Balance -3900 -3050 500 PT 15.9 SEC (12.0-15.0) H 10/01/17 04:25 INR 1.25 (0.83-1.16) H 10/01/17 04:25 - Physical Exam Constitutional: no apparent distress Eyes: PERRL Ears, Nose, Mouth, Throat: moist mucous membranes Cardiovascular: regular rate and rhythym Respiratory: no respiratory distress Gastrointestinal: normoactive bowel sounds, soft, non-tender abdomen Skin: warm Musculoskeletal: other (RLE BKA with wound vac, c/d/i) Neurologic: AAOx3 Psychiatric: interacting appropriately ICD10 Worksheet Patient Problems: Problems Problem Status Onset Cellulitis of right ankle Acute Decubitus ulcer of right heel Acute Quadriplegia, C5-C7 incomplete Acute Acute osteomyelitis of right calcaneus Acute 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
--- NOTE | 2017-10-01 12:04 | WOCRNPDOC ---
TERRI Advanced Assessment Note - Skin Integrity Problem, Advanced Assess Sacrum Pressure Injury Dressing Type: Allevyn Life Dressing Description: Clean/Dry, Intact Exudate Color: Reddish/Yellow Exudate Characteristic(s): Serosanguinous Integumentary Issue Intervention: Visualized Under Dressing, Mechanical Debridement Wound Bed Color: [place], Yellow Wound Bed Constitution: Granulation Tissue (30%), Mixed Loose & Adhered Slough/ Eschar (70%) Wound Edges: Attached, Well Defined Site Measurement - Head-to-Toe Length X Width X Depth (cm): 2.3x2.5x0.4 Pressure Injury Stage: Unstageable Pressure Injury Present on Admit: Yes Skin Integrity Problem Comment: Patient rolled to his right side with assist from JUAN Salinas. Allevyn pulled back to reveal yellow slought filled wound. Wound bed mechanically debrided with gauze to remove as much as possible. Puracyn gel placed in wound bed and recovered with Allevyn. Patient tolerated well. Patient repositioned with use of TAPS wedges onto right side. Wound care will round again later this week. Patient seen with Elvira DEL REAL. Left Lateral Ankle Pressure Injury Dressing Type: Allevyn Life Dressing Description: Clean/Dry, Intact Exudate Amount: None Integumentary Issue Intervention: Visualized Under Dressing Wound Bed Color: Purple, Red Wound Edges: Well Defined Site Measurement - Head-to-Toe Length X Width X Depth (cm): 1x0.5xintact Pressure Injury Stage: Deep Tissue Injury (DTI) Pressure Injury Present on Admit: Yes Skin Integrity Problem Comment: Wound bed dark purple and red though somewhat teenage babysitter than last week. Wound care will continue to monitor this wound.
[2017-10-01] MEDS: ACETAMINOPHEN 325 MG TAB PO SCH ×3 (13:13→23:27)
--- NOTE | 2017-10-01 15:37 | ASMTCMCOM ---
CM Note CM Note Notes: Chart reviewed. S/p right lower leg amputation. Wound vac in place. Therapies recommending [facility]. Message left for Becki Marie. Order obtained. Attempted to converse with patient regarding dc plan of care. He has difficulty tracking and tends to go off subject. He is very verbose with flat monotone voice. Hopefully able to go to inpt rehab tomorrow. CM to follow Date Signed: 10/01/2017 03:36 PM Electronically Signed By:Michelle Boyer RN
[2017-10-01] MEDS ORDERED: WARFARIN SODIUM 7.5 MG TAB PO ONE (16:00)
[2017-10-01] MEDS ORDERED: WARFARIN SODIUM 5 MG TAB PO ONE (16:00)
[2017-10-02 05:07] LABS: INR 1.37 (0.83-1.16)
[2017-10-02] MEDS: PIPERACILLIN/TAZO 4.5 GM/DEX 100 ML IV SCH ×3 (05:33→17:07)
[2017-10-02] MEDS: ACETAMINOPHEN 325 MG TAB PO SCH ×4 (05:33→23:49)
[2017-10-02] MEDS: ENOXAPARIN 100 MG/ML SYR SC SCH ×2 (05:34→16:59)
--- NOTE | 2017-10-02 07:26 | GOP ---
[f rep st] OPERATIVE REPORT DATE OF OPERATION: 09/29/2017 SURGEON: Yarely Perdomo MD ANESTHESIA: General. ANESTHESIOLOGIST: LuisA Moore MD. PREOPERATIVE DIAGNOSIS: Chronic wounds to his right lower extremity with likely osteomyelitis and an arm mass. POSTOPERATIVE DIAGNOSIS: Chronic wounds to his right lower extremity with likely osteomyelitis and an arm mass. PROCEDURE PERFORMED: 1. Right [id number]-[id number] amputation. 2. Excision of a 3 cm arm mass. FINDINGS: Multiple wounds right lower extremity and fatty tissue. SPECIMENS: Mass. INDICATIONS: A 57-year-old man with paraplegia who has developed multiple wounds to his right lower extremity. He has had partial amputations and continues to have problems with wound healing. He also has a mass on his right arm that he desires to be excised. DESCRIPTION OF PROCEDURE: The patient was brought into the operating room, placed supine on the table and general anesthesia was administered. His right arm and right leg were prepped and draped in the usual sterile fashion. I infiltrated all sites with 0.5% Marcaine prior to making incision. I made an incision over his arm mass. I created a superior and inferior skin flaps. I excised the fatty tissue. The wound was closed with 3-0 nylon. Sterile dressing applied. Next, attention was drawn to the leg. The wounds had been covered with an occlusive dressing. I made anterior and posterior skin incisions approximately 12 cm below the tibial tuberosity and extended medially and laterally to the edges of the gastrocnemius muscle. I then extended the skin flaps parallel and then created a posterior flap. The skin and subcutaneous tissues were incised down to fascia. The greater and short saphenous veins on the medial and posterior aspects of the leg were ligated and divided. The fascia and the muscles were divided with electrocautery at the same level of the anterior skin incision. The muscles in the anterior and lateral compartments were divided exposing the anterior tibial vessels which were ligated and divided. The interosseous membrane was incised. The tibial periosteum was incised circumferentially. Using periosteal elevator, the tibial periosteum was stripped proximally for 2 cm. The tibia was transected with an electric saw 2 cm proximal to the skin incision. The fibula was exposed, dissected circumferentially and transected proximal to the tibia. The amputation was completed with electrocautery, transecting the soleus obliquely and the gastrocnemius muscle at the same level as the posterior flap. Bleeding soleal veins in the posterior tibial peroneal vessels were clamped and tied. Sharp bony edges were filed. The fascia of the anterior and posterior muscle flaps were approximated with 0 Vicryl. The skin was approximated with pramod. I placed an incisional wound VAC. He tolerated the procedure well, and was taken to PACU in stable condition. /[id number]/MODL MTDD
[2017-10-02] MEDS: DIAZEPAM 5 MG TAB PO SCH ×2 (09:03→21:32)
[2017-10-02] MEDS: PANTOPRAZOLE SODIUM 40 MG TAB PO SCH (09:05)
[2017-10-02] MEDS: BACLOFEN 20 MG TAB PO SCH ×2 (09:05→21:32)
[2017-10-02] MEDS: OXYBUTYNIN CHLORIDE 5 MG TAB PO SCH ×2 (09:05→21:32)
--- NOTE | 2017-10-02 10:09 | SOAPPROG ---
SOAP Progress Note Assessment/Plan: Assessment/Plan: 57yo M with history of quadriplegia and chronic RLE wounds, POD #3 s/p Right BKA. Incisional wound vac - can stay in place x 1 week. Offload pressure from sacrum - side to side in bed Sacral wound debrided at bedside - continue daily Pleurogel and allevyn [facility] to fit for stump protector today S: Slept well. Pain is controlled. Pt is experiencing increased discomfort of his sacral decubitus ulcer. O: Well developed, well nourished man supine in bed with head elevated and Right leg stump elevated with a pillow and rolled towel. RESP: No increased work of breathing. SKIN: No redness or swelling of the RLE stump. Incisional wound vac in place to suction. Sacral decubitus ulcer granulation tissue with mild adherent slough , sharp debridement performed at bedside - patient tolerated well. MUSC: Improved spasm of Right flexor tendon. Objective: Vital Signs Temp Pulse Resp BP Pulse Ox 36.9 C 61 16 92/52 L 93 10/02/17 08:00 10/02/17 08:00 10/02/17 08:00 10/02/17 08:00 10/02/17 08:00 Laboratory Results 09/30/17 04:16 09/28/17 04:22 10/01/17 10/02/17 10/03/17 05:59 05:59 05:59 Intake Total 1700 2000 Output Total 2210 9611 Balance -3050 -4850 PT 17.0 SEC (12.0-15.0) H 10/02/17 04:14 INR 1.37 (0.83-1.16) H 10/02/17 04:14 ICD10 Worksheet Patient Problems: Problems Problem Status Onset Cellulitis of right ankle Acute Decubitus ulcer of right heel Acute Quadriplegia, C5-C7 incomplete Acute Acute osteomyelitis of right calcaneus Acute 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
[2017-10-02] MEDS: BISACODYL 10 MG SUPP PR PRN (10:18)
--- NOTE | 2017-10-02 14:03 | ASMTCMCOM ---
CM Note CM Note Notes: Pt not ready for d/c. Incisional wound vac for R BKA and wound care for sacral ulcer ongoing. [facility] Inpt Rehab is following. CM will continue to follow for d/c needs. Date Signed: 10/02/2017 02:02 PM Electronically Signed By:DIVINA Cabrales
[2017-10-02] MEDS ORDERED: WARFARIN SODIUM 5 MG TAB PO ONE (16:00)
--- NOTE | 2017-10-02 18:41 | PCMIDPN ---
Assessment/Plan: Assessment/Plan: * Recurrent right lower extremity cellulitis with chronic malleolar wounds status post BKA: Stump site without evidence of active cellulitis. Completing 7 days of postoperative antibiotics. Will transition Zosyn to Augmentin given no active cellulitis and based on prior culture showing growth of group A Streptococcus and MSSA. * Positive urine culture with chronic indwelling Mock: Suspect this represents colonization rather than contributing to clinical presentation. Will sign off. Please call with questions or for concerns regarding recurrent infection. Stop date has been placed on oral Augmentin. Debrox prescribed at patient's request for cerumen. 10/02/17 18:39 Subjective: Patient with initiation of stump processing analyst today. Objective: Vital Signs Temp Pulse Resp BP Pulse Ox 36.9 C 64 16 95/55 L 92 10/02/17 16:00 10/02/17 16:00 10/02/17 16:00 10/02/17 16:00 10/02/17 16:00 Laboratory Results 09/30/17 04:16 09/28/17 04:22 10/01/17 10/02/17 10/03/17 05:59 05:59 05:59 Intake Total 1700 2000 200 Output Total 4750 6850 Balance -3050 -4850 200 Zosyn # 7 - Physical Exam General Appearance: alert, no apparent distress Extremities: inflammation (Wound VAC in place over BKA stump site; no surrounding cellulitis present) ICD10 Worksheet Patient Problems: Problems Problem Status Onset Cellulitis of right ankle Acute Decubitus ulcer of right heel Acute Quadriplegia, C5-C7 incomplete Acute Acute osteomyelitis of right calcaneus Acute 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
--- NOTE | 2017-10-02 18:53 | HOSPPROG ---
Hospitalist Progress Note Assessment/Plan: Assessment: 57 yo M p/w sepsis 2/2 RLE cellulitis and osteomyelitis Plan: #Sepsis secondary to recurrent leg cellulitis. POA. Evidenced by autonomic dysregulation in setting of infxn, w/ end-organ failure notably hypoperfusion lactic acidosis, resolved #S/P BKA POD #3 for acute, recurrent right leg cellulitis and possible osteomyelitis, with chronic bimalleolar wounds -malleolar wound palpating to bone and 4 yrs of problems with increased hospitalizations recently, pt is now s/p BKA. He is wheelchair bound. -last culture with Enterobacter, MSSA, Strep dysgalactaie. -Abx through 10/06 (adjusted from Zosyn to augmentin today) -cont wound vac / wound care / stump economics instructor on today #Chronic sacral wound: POA. Wound care #Pyuria: Pseudomonas on UCx, may be colonization with jordan. #Acute metabolic lactic acidosis: 2/2 sepsis, resolved w/ IVF/Abx #h/o DVT: Initial DVT in LLE after spinal cord injury in 1992. 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 Cont home meds #Chronic pain w/ continuous opiate dependency: cont on current Rx #Diet: regular #DVT PPLX: resume lovenox / coumadin #Disp: cont inpt, PT/OT, d/w case mgmt, plan for Inpt Rehab eval Subjective: patient resting comfortably after pain Rx, had BM this AM Objective: Vital Signs Temp Pulse Resp BP Pulse Ox 36.9 C 64 16 95/55 L 92 10/02/17 16:00 10/02/17 16:00 10/02/17 16:00 10/02/17 16:00 10/02/17 16:00 Laboratory Results 09/30/17 04:16 09/28/17 04:22 10/01/17 10/02/17 10/03/17 05:59 05:59 05:59 Intake Total 1700 2000 200 Output Total 4750 6850 Balance -3050 -4850 200 PT 17.0 SEC (12.0-15.0) H 10/02/17 04:14 INR 1.37 (0.83-1.16) H 10/02/17 04:14 - Physical Exam Constitutional: no apparent distress, appears nourished, not in pain, No chronically ill appearing, No uncomfortable Cardiovascular: regular rate and rhythym, no murmur, rub, or gallop Respiratory: no respiratory distress, no rales or rhonchi, clear to auscultation Gastrointestinal: normoactive bowel sounds, soft, non-tender abdomen, no palpable masses Musculoskeletal: other (RLE BKA w/ stump economics instructor, atrophied LLE) Psychiatric: not anxious, flat affect, other (somnolent but arousable), No agitated ICD10 Worksheet Patient Problems: Problems Problem Status Onset Quadriplegia, C5-C7 incomplete Acute Decubitus ulcer of right heel Acute 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 Acute osteomyelitis of right calcaneus Acute Cellulitis of right ankle Acute
[2017-10-02] MEDS: AMOXICILLIN/CLAVULANATE POT 875/125 MG TAB PO SCH (21:32)
[2017-10-02] MEDS: CARBAMIDE PEROXIDE 15 ML OTIC.BTL EACHEAR SCH (23:50)
[2017-10-03 04:59] LABS: PLATELET COUNT 368 10^3/uL (150-400)
[2017-10-03 05:08] LABS: INR 1.48 (0.83-1.16); PROTIME(PATIENT) 18.1 SEC (12.0-15.0)
[2017-10-03] MEDS: ENOXAPARIN 100 MG/ML SYR SC SCH ×2 (05:44→17:39)
[2017-10-03] MEDS: ACETAMINOPHEN 325 MG TAB PO SCH ×4 (05:44→23:03)
--- NOTE | 2017-10-03 08:42 | SOAPPROG ---
SOAP Progress Note Assessment/Plan: Assessment/Plan: 57yo M with history of quadriplegia and chronic RLE wounds, POD #4 s/p Right BKA. Incisional wound vac - can stay in place x 1 week. Offload pressure from sacrum - side to side in bed Sacral wound - continue daily Pleurogel and allevyn [employer] clinic to fit for stump protector today Transition to PO antibiotics per ID Increased diarrhea - check Cdiff Considering inpatient rehab - does not need stay here for wound care. OK to DC at any time. Seen c Dr. Perdomo S: Pain controlled. considering rehab for increased therapy. O: Well developed, well nourished man supine in bed with head elevated and Right leg stump elevated with a pillow RESP: No increased work of breathing. SKIN: Min erythema of RLE stump. Incisional wound vac in place to suction. Not wearing stump protector 10/03/17 08:44 Objective: Vital Signs Temp Pulse Resp BP Pulse Ox 37.1 C 73 16 89/59 L 93 10/03/17 07:56 10/03/17 07:56 10/03/17 07:56 10/03/17 07:56 10/03/17 07:56 Laboratory Results 10/03/17 04:31 10/03/17 04:31 10/02/17 10/03/17 10/04/17 05:59 05:59 05:59 Intake Total 2000 1400 Output Total 6850 3500 Balance -4850 -2100 PT 18.1 SEC (12.0-15.0) H 10/03/17 04:31 INR 1.48 (0.83-1.16) H 10/03/17 04:31 ICD10 Worksheet Patient Problems: Problems Problem Status Onset Cellulitis of right ankle Acute Decubitus ulcer of right heel Acute Quadriplegia, C5-C7 incomplete Acute Acute osteomyelitis of right calcaneus Acute 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
[2017-10-03] MEDS: AMOXICILLIN/CLAVULANATE POT 875/125 MG TAB PO SCH ×2 (08:52→20:38)
[2017-10-03] MEDS: DIAZEPAM 5 MG TAB PO SCH ×2 (08:53→20:37)
[2017-10-03] MEDS: PANTOPRAZOLE SODIUM 40 MG TAB PO SCH (08:53)
[2017-10-03] MEDS: OXYBUTYNIN CHLORIDE 5 MG TAB PO SCH ×2 (08:53→20:37)
[2017-10-03] MEDS: BACLOFEN 20 MG TAB PO SCH ×2 (08:53→20:37)
[2017-10-03] MEDS: CARBAMIDE PEROXIDE 15 ML OTIC.BTL EACHEAR SCH ×2 (11:05→20:38)
--- NOTE | 2017-10-03 15:33 | ASMTCMCOM ---
CM Note CM Note Notes: Pt qualifies for [facility] inpatient rehab, pt takes some time to decide if he wants to go. After speaking w therapy and admissions pt is agreeable but wants a d/c tomorrow (Pt states if he were to have a d/c order in today he would appeal). Pt has Medicaid so a Medicaid wc van can be scheduled tomorrow when d/c orders are in. Date Signed: 10/03/2017 03:33 PM Electronically Signed By:DIVINA Barrow
[2017-10-03] MEDS ORDERED: WARFARIN SODIUM 5 MG TAB PO ONE (16:45)
--- NOTE | 2017-10-03 20:00 | HOSPPROG ---
Hospitalist Progress Note Assessment/Plan: Assessment: 57 yo M p/w sepsis 2/2 RLE cellulitis and osteomyelitis Plan: #Sepsis secondary to recurrent leg cellulitis. POA. Evidenced by autonomic dysregulation in setting of infxn, w/ end-organ failure notably hypoperfusion lactic acidosis, resolved #S/P BKA POD #4 for acute, recurrent right leg cellulitis and possible osteomyelitis, with chronic bimalleolar wounds -malleolar wound palpating to bone and 4 yrs of problems with increased hospitalizations recently, pt is now s/p BKA. He is wheelchair bound. -last culture with Enterobacter, MSSA, Strep dysgalactaie. -Abx through 10/06 (adjusted from Zosyn to augmentin per ID) -cont wound vac / wound care / stump reclamation kettle tender on today -patient will benefit substantially from Inpt Rehab, plan to DC there tomorrow and anticipate approx 5 day rehab #Chronic sacral wound: POA. Wound care #Pyuria: Pseudomonas on UCx, may be colonization with jordan. #Acute metabolic lactic acidosis: 2/2 sepsis, resolved w/ IVF/Abx #h/o DVT: Initial DVT in LLE after spinal cord injury in 1992. 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 Cont home meds #Chronic pain w/ continuous opiate dependency: cont on current Rx #Diarrhea: likely 2/2 bowel regimen, if continues, CDiff PCR #Diet: regular #DVT PPLX: resumed lovenox / coumadin #Disp: cont inpt, DC 10/04 planned Subjective: distressed by idea of discharge, pain well controlled, no diarrhea this afternoon Objective: Vital Signs Temp Pulse Resp BP Pulse Ox 36.8 C 79 18 118/67 92 10/03/17 15:45 10/03/17 15:45 10/03/17 15:45 10/03/17 15:45 10/03/17 15:45 Laboratory Results 10/03/17 04:31 10/03/17 04:31 10/02/17 10/03/17 10/04/17 05:59 05:59 05:59 Intake Total 1999 1400 1500 Output Total 6809 3500 2500 Balance -4850 -2100 -1000 PT 18.1 SEC (12.0-15.0) H 10/03/17 04:31 INR 1.48 (0.83-1.16) H 10/03/17 04:31 - Pending Discharge Pending Discharge Within 24 Hours: Yes Pending Discharge Date: 10/04/17 Pending Discharge Time: 11:00 - Physical Exam Constitutional: no apparent distress, not in pain, chronically ill appearing, uncomfortable Cardiovascular: regular rate and rhythym, no murmur, rub, or gallop, No edema Respiratory: no respiratory distress, no rales or rhonchi, clear to auscultation Gastrointestinal: normoactive bowel sounds, soft, non-tender abdomen, no palpable masses, No distension Musculoskeletal: other (R stump) Neurologic: AAOx3 Psychiatric: not encephalopathic, thought process linear, anxious, No agitated ICD10 Worksheet Patient Problems: Problems Problem Status Onset Quadriplegia, C5-C7 incomplete Acute Decubitus ulcer of right heel Acute 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 Acute osteomyelitis of right calcaneus Acute Cellulitis of right ankle Acute
[2017-10-04 05:25] LABS: INR 1.46 (0.83-1.16); PROTIME(PATIENT) 17.9 SEC (12.0-15.0)
[2017-10-04] MEDS: ACETAMINOPHEN 325 MG TAB PO SCH ×2 (06:14→13:07)
[2017-10-04] MEDS: ENOXAPARIN 100 MG/ML SYR SC SCH (06:14)
[2017-10-04] MEDS: BACLOFEN 20 MG TAB PO SCH (08:03)
[2017-10-04] MEDS: OXYBUTYNIN CHLORIDE 5 MG TAB PO SCH (08:03)
[2017-10-04] MEDS: AMOXICILLIN/CLAVULANATE POT 875/125 MG TAB PO SCH (08:03)
[2017-10-04] MEDS: PANTOPRAZOLE SODIUM 40 MG TAB PO SCH (08:04)
[2017-10-04 08:06] VITALS: BP 103/60; PULSE 71; RESP 18; TEMP 97.8; O2SAT 92
[2017-10-04] MEDS: DIAZEPAM 5 MG TAB PO SCH (08:06)
[2017-10-04] MEDS: CARBAMIDE PEROXIDE 15 ML OTIC.BTL EACHEAR SCH (08:48)
--- NOTE | 2017-10-04 09:18 | PDIAF ---
- Diagnosis Diagnosis: leg wounds -> BKA; partial quadraplegia c56, weakness; hx recurrent dvt's Code Status: Full Code - Medication Management Discharge Medications: Medications to Continue on Transfer Baclofen [Baclofen 20 mg (*)] 40 mg PO BID 10/05/12 [Last Taken 09/25/17 AM dose ] Diazepam [Valium 10 MG (*)] 20 mg PO BID 10/05/12 [Last Taken 09/25/17] Nitrofurantoin Macrocrystal [Nitrofurantoin] 50 mg PO BID 10/05/12 [Last Taken 09/25/17 AM dose] Omeprazole [Prilosec 20 mg] 20 mg PO DAILY 10/05/12 [Last Taken 09/25/17] Oxybutynin Chloride [Ditropan] 5 mg PO BID 10/05/12 [Last Taken 09/25/17 AM dose ] Diphenoxylate HCl/Atrop Sulf [Lomotil Tab (*)] 1 tab PO QID PRN #40 tab [Last Taken Unknown] Warfarin Sodium [Coumadin 5MG (*)] 5 mg PO DAILY #0 09/08/17 [Last Taken ] Acetaminophen [Tylenol 325mg (*)] 650 mg PO Q4H PRN 09/25/17 [Last Taken ] Carbamide Peroxide [Debrox Ear drops (*)] 5 - 10 drop EACHEAR BID otic.btl [Last Taken Unknown] Enoxaparin [Lovenox 100 MG (*)] 90 mg SC BID@0600,1800 syr 10/04/17 [Last Taken Unknown] Ondansetron Odt [Zofran Odt 4 mg (*)] 4 mg PO Q4HRS PRN tab 10/04/17 [Last Taken Unknown] oxyCODONE/APAP 5/325 [Percocet 5/325 (*)] 1 - 2 tab PO Q4HRS PRN tab 10/04/17 [ Last Taken Unknown] Discharge Medications: Refer to the Discharge Home Medication list for PRN reason. - Orders Services needed: Registered Nurse, Certified Job Molder, Master Msws , Physical Therapy, Occupational Therapy Diet Recommendation: no restrictions on diet Diet Texture: Regular Texture Diet Wound Care Instructions: Wound vac remove on Monday10/06/17. Forearm - remove sutures on Monday10/10/17. F/u at wound healing center on 10/18/17. Sacral wound care - offload pressure, pleurogel, allevyn change as needed Equipment: wheelchair Additional: all wound care questions to Dr Perdomo - Labs/Radiology PT/INR Date: 10/05/17 (Daily until therapeutic) - Follow Up Care Current Providers and Referrals: Patient,NotPresent [Primary Care Provider] - As per Instructions
--- NOTE | 2017-10-04 09:25 | PDDCSUM ---
Discharge Summary Discharge Summary: DIAGNOSES -acute sepsis, resolved -Acute Cellulitis and Infected Left Leg Ulcers in a man with partial quadraplegia -Left BKA performed -excision of mass from his arm , pathology still pending at discharge -deconditioning and weakness-partial quad at 5,6 -chronic pain syndrome with chronic daily prescribed narcotic use -neurogenic bladder with chronic Mock catheter; pyuria is noted here not felt to represent any infection CONSULTANTS: Dr Yarely Perdomo Infectious disease, multiple consultants Wound care nurse team PROCEDURES: BKA L leg HOSPITAL COURSE: This patient with longstanding partial quadriplegia came into the hospital with severe infected leg wounds and cellulitis which is a recurrent problem for him and he had not been having any success with conservative measures for treating these wounds. It was elected to perform BKA on the left leg which was done by Dr. Yarely Perdomo on September 29, without complications. He has required some wound VAC for wound closure issue some wound VAC is still in place at this time. Incidentally the patient also had a soft tissue mass of the , and this was excised during the surgery with pathology currently pending. At this point the patient is healing and is clinically very stable but remains quite weak and unable to do his usual transfers. He lives alone in an apartment and usually does transfers to and from his wheelchair independently. He is unable to do that at this time. At this point he requires significant ongoing physical occupational therapy rehabilitations and wound care, so will be transferred to a rehabilitation center for that ongoing care. He will follow up with Dr. Yarely Perdomo in the Wound Clinic for ongoing care of his wound , and wound VAC care will continue at this time. DISPOSTION: Transfer today to [address] [place] [address] Hospital for further rehabilitation and wound care
--- NOTE | 2017-10-04 14:50 | SOAPPROG ---
SOAP Progress Note Assessment/Plan: Assessment/Plan: 57yo M with history of quadriplegia and chronic RLE wounds, s/ p Right BKA. Incisional wound vac - can stay in place x 1 week. Remove Monday at rehab Offload pressure from sacrum - side to side in bed Sacral wound - continue daily Pleurogel and allevyn Stump protector DC to inpt rehab OK to DC at any time. Seen c Dr. Perdomo S: Pain controlled. no new complaints O: Well developed, well nourished man supine in bed with head elevated and Right leg stump elevated with a pillow RESP: No increased work of breathing. SKIN: Min erythema of RLE stump. Incisional wound vac in place to suction. Not wearing stump protector Objective: Vital Signs Temp Pulse Resp BP Pulse Ox 36.6 C 71 18 103/60 92 10/04/17 08:00 10/04/17 08:00 10/04/17 08:00 10/04/17 08:00 10/04/17 08:00 Laboratory Results 10/03/17 04:31 10/03/17 04:31 10/03/17 10/04/17 10/05/17 05:59 05:59 05:59 Intake Total 1400 2500 Output Total 3500 4100 Balance -2100 -1600 PT 17.9 SEC (12.0-15.0) H 10/04/17 04:25 INR 1.46 (0.83-1.16) H 10/04/17 04:25 ICD10 Worksheet Patient Problems: Problems Problem Status Onset Cellulitis of right ankle Acute Decubitus ulcer of right heel Acute Quadriplegia, C5-C7 incomplete Acute Acute osteomyelitis of right calcaneus Acute 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
--- NOTE | 2017-10-04 15:59 | ASDISCHSUM ---
Discharge Information Plan Status:Inpatient Rehab Medically Cleared to Leave: Discharge Date:10/04/2017 03:36 PM CM D/C Disposition:[facility] ADT D/C Disposition:[facility] IP Projected Discharge Date:10/04/2017 11:00 AM Transportation at D/C:Medicaid Transportation Discharge Delay Reason: Follow-Up Date:10/04/2017 11:00 AM Discharge Slot: Final Diagnosis: Placement Information Referral Type:*Home Health Care Services Referral ID:[id number] Provider Name: Address 1: Phone Number: Address 2: Fax Number: City: Selection Factors: State: Referral Type:Rehabilitation Hospital Referral ID:[id number] Provider Name:[facility] Address 1:[address] Phone Number: Address 2: Fax Number: [facility]:[place] Selection Factors: State:[place] Patient Contact Information Contact Name:DARY Relationship:Friend Address: Work Phone: City: [facility] Phone: [facility]/Zip Code: Email: Financial Information Financial Class:Medicare Primary Plan Desc:MEDICARE INPATIENT Primary Plan Number:[id number] Secondary Plan Desc[place] Secondary Plan Number:[id number] Assessment Information [facility] Initial CM Assessment Living Arrangements What is your living Answers: Alone arrangement? Who do you live with? Type Of Residence What kind of residence do Answers: House you live in? Discharge Plan Comments Coordination Status Comments Notes: Pt is a 57 y/o man admitted for right lower extremity cellulitis. Pt is a quadriplegic. Pt was recently here on 09/04/17 to 09/08/17 for cellulitis. Pt lives independently w/ caregivers. Therapies have been ordered and awaiting recommendations. Needs are TBD at this time. CM to follow. Plan: TBD Date Signed: 09/26/2017 09:48 AM Electronically Signed By:AIDEN Bustamante [facility] Progress Note CM Note CM Note Notes: Spoke w/RN, pt will have a BKA tomorrow d/t chronic LE wound. Dc needs unclear at this point, pt has current homecare w/ [facility] , CM w/f DC Plan: TBD Date Signed: 09/28/2017 11:26 AM Electronically Signed By:Mildred Elias RN [facility] CM Progress Note CM Note CM Note Notes: Chart reviewed. Patient is awaiting surgery this pm. He is worried about making indications to his aide and family as to his thoughts and in the event he were to not survive surgery then where the family might find various policies for insurance purposes, he has asked for a pad of paper and pen so he may direct his family of his choices and provisions.He is current with [facility] and id happy with this service. Will place referral for resumption of [facility] services when he is medically stable for discharge. CM to follow. Date Signed: 09/29/2017 11:18 AM Electronically Signed By:Michelle Boyer RN [facility] CM Progress Note CM Note CM Note Notes: [facility] is under [facility] medicaid that makes provisional care for client in their home. The person I spoke to states that this patient has a provision for home health aides, but nursing services do not fall under that umbrella . I called [phone] and spoke to Nick. It will be up to patient to decide on a provisional source for a higher level of prison care. CM to follow. Date Signed: 09/29/2017 12:23 PM Electronically Signed By:Michelle Boyer RN [facility] Progress Note CM Note CM Note Notes: Patient chart reviewed. S/p RBKA. Per therapies, they are recommending inpatient rehab. Message left with Becki Marie at [facility]. He is post op day one and is a quadriplegic who normally has care at home. Will need order for evaluation. CM to follow. Date Signed: 09/30/2017 01:47 PM Electronically Signed By:Michelle Boyer RN [facility] Progress Note CM Note CM Note Notes: Chart reviewed. S/p right lower leg amputation. Wound vac in place. Therapies recommending [facility]. Message left for Becki Marie. Order obtained. Attempted to converse with patient regarding dc plan of care. He has difficulty tracking and tends to go off subject. He is very verbose with flat monotone voice. Hopefully able to go to inpt rehab tomorrow. CM to follow Date Signed: 10/01/2017 03:36 PM Electronically Signed By:Michelle Boyer RN [facility] CM Progress Note CM Note CM Note Notes: Pt not ready for d/c. Incisional wound vac for R BKA and wound care for sacral ulcer ongoing. [facility] Inpt Rehab is following. CM will continue to follow for d/c needs. Date Signed: 10/02/2017 02:02 PM Electronically Signed By:DIVINA Cabrales [facility] CM Progress Note CM Note CM Note Notes: Pt qualifies for [facility] inpatient rehab, pt takes some time to decide if he wants to go. After speaking w therapy and admissions pt is agreeable but wants a d/c tomorrow (Pt states if he were to have a d/c order in today he would appeal). Pt has Medicaid so a Medicaid wc van can be scheduled tomorrow when d/c orders are in. Date Signed: 10/03/2017 03:33 PM Electronically Signed By:DIVINA Barrow [facility] CM Progress Note CM Note CM Note Notes: Pt medically stable for d/c to [facility] inpatient rehab. Medicaid WC van scheduled w [facility] for 15:30 and [place] Medicaid auth is [id number]. JUAN Rausch to call report. Date Signed: 10/04/2017 03:58 PM Electronically Signed By:DIVINA Barrow Intervention Information Intervention Type:*IM-Signed Date of Service:10/04/2017 09:53 AM Patient Type:Inpatient Staff Member:Kaylee Bravo Hours: Discipline: Severity: Comment:
--- NOTE | 2017-10-04 15:59 | ASMTCMCOM ---
CM Note CM Note Notes: Pt medically stable for d/c to [facility] inpatient rehab. Medicaid WC van scheduled w [facility] for 15:30 and [place] Medicaid auth is [id number]. JUAN Rausch to call report. Date Signed: 10/04/2017 03:58 PM Electronically Signed By:DIVINA Barrow
[2017-10-04] MEDS ORDERED: WARFARIN SODIUM 7.5 MG TAB PO ONE (16:00)
== END 2017-10-04 15:36 | DRG 853 ==
LOC: EDUNIT# → F3E 17:56 → F3N 09-29 17:28
PROVIDERS: ADMIT Internal Medicine; ATTEND Internal Medicine
DX: A41.2 Sepsis due to unspecified staphylococcus (principal); G82.54 Quadriplegia, C5-C7 incomplete; L89.153 Pressure ulcer of sacral region, stage 3; L89.513 Pressure ulcer of right ankle, stage 3; L03.115 Cellulitis of right lower limb; F11.20 Opioid dependence, uncomplicated; L89.610 Pressure ulcer of right heel, unstageable; R22.30 Localized swelling, mass and lump, unspecified upper limb; G89.4 Chronic pain syndrome; G47.30 Sleep apnea, unspecified; N31.9 Neuromuscular dysfunction of bladder, unspecified; Z99.3 Dependence on wheelchair; Z79.01 Long term (current) use of anticoagulants; Z86.718 Personal history of other venous thrombosis and embolism
CPT/HCPCS: 96365; 97110-GP; 97162-GP; 97165-GO; 97168-GO; 97530-GO; 97530-GP; 97535-GO; G8978-GP-CJ; G8979-GP-CI; G8987-GO-CL; G8988-GO-CJ; G8989-GO-CL; J1650; J2001; J2250; J2543; J2704; J3010; J3370; Q9967

== ENCOUNTER 2017-10-03 12:01 | Inpatient (IN) | payer OTHER, MEDICAID ==
[2017-10-04] MEDS ORDERED: ONDANSETRON DISINTEGRATING 4 MG TAB PO PRN (16:44)
[2017-10-04] MEDS ORDERED: DIPHENOXYLATE/ATROPINE LOMOTIL 1 TAB PO PRN (16:44)
[2017-10-04] MEDS ORDERED: OXYCODONE/APAP 5/325 TAB PO PRN (16:44)
[2017-10-04] MEDS: ENOXAPARIN 100 MG/ML SYR SC SCH (18:48)
--- NOTE | 2017-10-04 18:51 | GHP ---
[f rep st] HISTORY AND PHYSICAL POST ADMISSION PHYSICIAN EVALUATION AND REHABILITATION TREATMENT PLAN DATE OF ADMISSION: 10/04/2017 DATE OF EVALUATION: 10/04/2017. TIME OF EVALUATION: 1705. REFERRING FACILITY: [facility] REFERRING PHYSICIAN: Kateryna Esquivel MD IMPAIRMENT GROUP: 5.4. DATE OF ONSET: 09/25/2017. CONSULTING PHYSICIANS: He was cared for by the wound care service, Marleny Nevarez; Infectious Disease, Dr. Barreto; Surgery, Dr. Perdomo. REHABILITATION DIAGNOSIS: Debility status post right ahmkv-hml-ivun amputation. ETIOLOGIC DIAGNOSIS: Unilateral limb gdabp-xek-zayb. DATE OF SURGERY: 09/29/2017. 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 He has had chronic ulcers on the right lower extremity greater than the left with history of a right calcaneal amputation and then subsequent ulceration to bilateral malleoli. He has been treated for cellulitis in the past. He came back to [facility] on 09/25/2016 with recurrent right lower extremity cellulitis and sepsis. He was treated with IV antibiotics and ultimately underwent a hlcbw-tqa-xsnp amputation for recurrent cellulitis. Surgery was done on 09/29/2017. He also had excision of a right forearm nodule. During his stay, he also had bedside debridement of a sacral wound. He has an incisional wound VAC for 1 week on the right lower extremity. He has had a functional decline from baseline requiring more assistance, so he was, once medically stabilized, appropriate for inpatient rehabilitation. STUDIES AND LABORATORIES: During his stay, CBC initially showed a markedly elevated white blood cell count at 17.99, which subsequently normalized. He developed anemia during his stay, and on 10/03/2017, his hemoglobin was stable or improved at 10.1 and hematocrit at 30.6. He had been on warfarin for history of DVT. Warfarin was held for surgery, and he has been bridged with enoxaparin. INR this morning was 1.46. Blood gases showed a markedly elevated venous blood lactic acid at 3.3 on 09/25/2017. Subsequently after hydration and antibiotics, it was 1.3, which is within normal limits. Serum chemistry was overall unremarkable and is completely normal on the day before discharge. He had iron studies on 09/28/2017, which were consistent with both chronic disease and iron deficiency. Total iron was low at 33, TIBC was low at 213, and percent saturation was 16%. He had a urinalysis which was consistent with infection and grew Pseudomonas, but it was considered to be a colonization rather than an infection. He had negative hemoccults x2. Gram stain and culture of his ankle wounds grew methicillin sensitive Staphylococcus aureus and Streptococcus pyogenes. There were no resistances noted. Ultrasound of the right lower extremity ruled out a DVT. He was noted to have right groin lymphadenopathy. Chest x-ray on 09/25/[address] of the right lower extremity on 09/26/2017, showed cellulitis in the right calf and especially over the lateral malleolus without any abscess or bony erosive changes and showed anterior bony fusion of the distal right fibula and tibia. PRECAUTIONS: He is a fall risk. Otherwise, he has no precautions. ACTIVE COMORBIDITIES: He has the active comorbidity of incomplete quadriplegia. Otherwise, there are no tier 1, tier 2 or tier 3 comorbidities. PAST MEDICAL HISTORY: 1. 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 2. Cellulitis of the right lower extremity. 3. Right heel osteomyelitis. 4. History of DVTs. 5. Chronic urinary retention with suprapubic catheter. 6. Lipoma. PAST SURGICAL HISTORY: 1. He has had a cervical spinal fusion, and he reports he has a cervical spinal subluxation causing difficulty holding his head up for prolonged periods. 2. Right calcaneus amputation. 3. Hemorrhoidectomy. MEDICATIONS: Prior to admission: 1. Baclofen 40 mg p.o. b.i.d. 2. Diazepam 20 mg p.o. b.i.d. 3. Nitrofurantoin 50 mg p.o. b.i.d. 4. Omeprazole 20 mg p.o. q. day. 5. Oxybutynin 5 mg p.o. b.i.d. 6. Amoxicillin/clavulanate 875 mg p.o. b.i.d. 7. Diphenoxylate and atropine 1 tab p.o. q.i.d. p.r.n. diarrhea. 8. Warfarin 5 mg p.o. q. day. ALLERGIES: He is allergic to ciprofloxacin. SOCIAL HISTORY: He lives alone. He has hired caregivers. 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 He is a former smoker. He does not use alcohol. FAMILY HISTORY: There is a family history of prostate cancer. REVIEW OF SYSTEMS: He denies pain, chest pain, palpitations, cough, dyspnea, nausea, vomiting, constipation, or diarrhea currently though he has had some diarrhea during his hospitalization. He denies pelvic pain. He reports that when he has a true bladder infection, he notices urethral pain, but he does not have that at present. He denies joint swelling or joint pain. He denies weight gain or weight loss, fever, or chills. He is aware of his sacral decubitus ulcer and of a deep tissue injury on the left lateral malleolus. He is in good spirits. Otherwise, a 10-point review of systems is negative. PHYSICAL EXAMINATION: VITAL SIGNS: Not yet available in the chart. At the hospital this morning, his blood pressure was 103/60, his heart rate was 71, his respiratory rate was 18, oxygen saturation was 92% on room air. Temperature was 36.6 degrees centigrade. His weight was 90.7 kg for a body mass index of 27.9. GENERAL: This is an overweight appearing man, sitting in a wheelchair, cooperative and in no acute distress. HEENT: Extraocular movements are intact. Pupils are equal, round, and reactive to light. Mucous membranes are moist. Dentition is in good condition. He has a moderately crowded airway, Mallampati class 3. Head is held in an anterior position. NECK : Supple. HEART: There is a regular rate and rhythm with no murmurs, rubs, or gallops. LUNGS: Clear to auscultation bilaterally. ABDOMEN: Soft, nontender, nondistended with normoactive bowel sounds and no hepatosplenomegaly. EXTREMITIES: There is no cyanosis, clubbing, or edema. He has a residual limb protector on his right leg below the knee. Radial pulses are 2+ bilaterally and dorsalis pedis pulse on the left is 2+. NEUROLOGIC: He is alert and oriented x3. Cranial nerves 2-12 are grossly intact. He has bilateral upper extremity weakness and uses a [employer] listing consultant, though he is also able to hold a pencil and write with it. Sensation is intact to light touch. Deep tendon reflexes are globally hypoactive. He is able to move his left lower extremity. SKIN: Sacrum was not examined but will be once he is in bed. Left foot has nonblanching deep red erythema over the lateral malleolus approximately 1 cm. Wound VAC is in place on the right lower leg. CURRENT LEVEL OF FUNCTION: Per the pre-admission screen: Regarding diet, feeding, and swallowing, he has required setup for self feeding using a [employer] listing consultant. Grooming was accomplished with set up. Dressing: The lower body required total assist to don socks and shoe on the left. Toileting required total assist. Regarding bladder, he had a suprapubic catheter. Regarding bowel, it is noted that he has a bowel protocol every Monday and . Bed mobility required maximal assistance of 2 people. Transfers required maximal assistance of 2 with cues to initiate sequence and persist in transferring to a shower chair. Using a sliding board, he required maximal assistance of 2 people with patient assisting using his upper extremities. Seated balance required maximal assistance. Endurance was fair. Communication and cognition were within normal limits. PHYSICAL EXAMINATION: On today's exam, there are no significant changes from the preadmission screen. IMPRESSION: This is a 57-year-old man with a history of incomplete C5-6 quadriplegia and cellulitis as well as osteomyelitis of the right lower extremity who came to the hospital septic and with recurrent cellulitis and underwent an elective oousa-imm-uyks amputation. At baseline, he was able to self transfer but currently requires considerable assistance. He has a sacral decubitus ulcer which is stage II, and he has a deep tissue injury on the left lateral malleolus of the lower extremity. Pain control is adequate with current medications. He has had some diarrhea in the hospital but not currently. He has 2 more days on a 7 day course of perioperative antibiotics. He is appropriate for inpatient rehabilitation where he will benefit from PT and OT to optimize mobility and ADLs towards discharge home at the modified independent level for meal preparation, grooming, and bed mobility. He will likely require minimal assist for transfers, bathing, and dressing. He will need to be able to sit independently at the edge of the bed. He will return to his prior bowel protocol. He will receive therapy with Physical Therapy and Occupational Therapy on a modified schedule 60-90 minutes per day for each discipline on 7 days of the week to total 15 hours per week or more of therapy. His expected duration of stay is 10-14 days. It is anticipated that upon discharge he will continue to benefit from home health services including nursing, an aide, occupational therapy, and physical therapy as well as an amputation support group. PLAN: 1. Debility in a man with C5-C6 incomplete quadriplegia following right below- knee amputation 09/29/2017 for chronic recurrent cellulitis. PT and OT to optimize his mobility and activities of daily living towards modified independent with mobility, grooming, and meal preparation and toward minimal assist for transfers, bathing, and dressing. 2. Right leg icgrf-swy-gbhy amputation. Continue wound VAC through 2017. He is to have pramod removed on 10/10/2017. [facility]. 3. Sacral and left lateral malleolus decubitus ulcers, stage II on the sacrum, and deep tissue injury on the left lateral malleolus. Continue wound care that he had been receiving in the hospital. Will additionally order a wound nurse consult for these wounds as well as for the wound VAC. 4. Status post excision of right forearm nodule. Monitor for signs or symptoms of infection. Await pathology. 5. Anemia, iron deficiency and anemia of chronic disease. Will discuss initiating iron sulfate supplementation with the patient. 6. Suprapubic catheter with Pseudomonas colonization. Continue suppressive antibiotics with nitrofurantoin. There is no specific treatment needed for the Pseudomonas colonization. 7. Neurogenic bowel. He has an elaborate bowel protocol Monday and , which he will continue to perform with the assistance of nursing. 8. Spasticity. Continue baclofen as well as diazepam. 9. History of deep venous thrombosis. Continue warfarin to be managed by Pharmacy with enoxaparin as a bridge until he is therapeutic on warfarin x2 days. 10. Pain management has been effective with oxycodone/acetaminophen combination , and this will be continued. 11. Prophylaxis. Continue warfarin and enoxaparin. There is no need for any additional pharmacologic prophylaxis, and mechanical prophylaxis is relatively contraindicated with right qbhkl-wdo-dbdc amputation and with left ankle lateral malleolus deep tissue injury. /[id number]/MODL MTDD
[2017-10-04] MEDS ORDERED: DIAZEPAM 10 MG TAB PO SCH (21:00)
[2017-10-04] MEDS: AMOXICILLIN/CLAVULANATE POT 875/125 MG TAB PO SCH (21:55)
[2017-10-04] MEDS: OXYBUTYNIN CHLORIDE 5 MG TAB PO SCH (21:56)
[2017-10-04] MEDS: BACLOFEN 20 MG TAB PO SCH (21:56)
[2017-10-04] MEDS: DIAZEPAM 5 MG TAB PO SCH (21:57)
[2017-10-04] MEDS: NITROFURANTOIN 50 MG CAP PO SCH (22:00)
[2017-10-04] MEDS: CARBAMIDE PEROXIDE 15 ML OTIC.BTL EACHEAR SCH (23:42)
[2017-10-05] MEDS: ACETAMINOPHEN 325 MG TAB PO PRN (05:34)
[2017-10-05] MEDS: ENOXAPARIN 100 MG/ML SYR SC SCH ×2 (05:34→18:33)
[2017-10-05 08:19] LABS: INR 1.68 (0.83-1.16); PROTIME(PATIENT) 19.9 SEC (12.0-15.0)
[2017-10-05] MEDS ORDERED: NON-FORMULARY NEW DRUG (Omeprazole [Prilosec 20 Mg] 20 MG) PO SCH (09:00)
[2017-10-05] MEDS ORDERED: WARFARIN SODIUM 5 MG TAB PO SCH ×2 (09:00→16:00)
[2017-10-05] MEDS: BACLOFEN 20 MG TAB PO SCH ×2 (09:15→20:23)
[2017-10-05] MEDS: PANTOPRAZOLE SODIUM 40 MG TAB PO SCH (09:16)
[2017-10-05] MEDS: AMOXICILLIN/CLAVULANATE POT 875/125 MG TAB PO SCH ×2 (09:16→20:23)
[2017-10-05] MEDS: DIAZEPAM 5 MG TAB PO SCH ×2 (09:16→20:23)
[2017-10-05] MEDS: OXYBUTYNIN CHLORIDE 5 MG TAB PO SCH ×2 (09:16→20:23)
[2017-10-05] MEDS: CARBAMIDE PEROXIDE 15 ML OTIC.BTL EACHEAR SCH (09:16)
[2017-10-05] MEDS: NITROFURANTOIN 50 MG CAP PO SCH ×2 (09:18→20:24)
--- NOTE | 2017-10-05 11:56 | SOAPPROG ---
SOAP Progress Note Assessment/Plan: Assessment: * Debility in a man with C5-C6 incomplete quadriplegia following right below- knee amputation 09/29/2017 for chronic recurrent cellulitis. * PT and OT to optimize his mobility and activities of daily living towards modified independent with mobility, grooming, and meal preparation and toward minimal assist for transfers, bathing, and dressing. * Right leg ixgxx-mux-ildi amputation. * Continue wound VAC through 10/06/2017. He is to have pramod removed on 10/10. He has followup scheduled at the [facility] on 10/18/2017. * Sacral and left lateral malleolus decubitus ulcers, stage II on the sacrum, and deep tissue injury on the left lateral malleolus. * Continue wound care that he had been receiving in the hospital. Wound nurse consult for these wounds as well as for the wound VAC. * Status post excision of right forearm nodule. Monitor for signs or symptoms of infection. Await pathology. * Anemia, iron deficiency and anemia of chronic disease. * Initiating iron sulfate supplementation 10/05/2017 X 1 month. * Suprapubic catheter with Pseudomonas colonization. * Continue suppressive antibiotics with nitrofurantoin. * Monitor for signs/symptoms of infection. * Neurogenic bowel. He has an elaborate bowel protocol Monday and , which he will continue to perform with the assistance of nursing. * Check for C. difficile if he has diarrhea. * Spasticity. Continue baclofen as well as diazepam. * History of deep venous thrombosis. * Continue warfarin to be managed by Pharmacy with enoxaparin as a bridge until he is therapeutic on warfarin x2 days. * Pain management has been effective with oxycodone/acetaminophen combination, and this will be continued. * Prophylaxis. Continue warfarin and enoxaparin. There is no need for any additional pharmacologic prophylaxis, and mechanical prophylaxis is relatively contraindicated with right ktkwo-vop-mmsp amputation and with left ankle lateral malleolus deep tissue injury. Follow-up at [facility] 10/18/2017. 10/05/17 12:20 10/05/17 12:36 Subjective: No complaints today. Was up intermittently through the night as is his usual habit and he is not distressed by it. Pain is adequately controlled. No fevers or chills, no urinary symptoms. Objective: Vital Signs Temp Pulse Resp BP Pulse Ox 36.8 C 68 14 95/60 L 95 10/05/17 05:44 10/05/17 05:44 10/05/17 05:44 10/05/17 05:44 10/05/17 05:44 10/04/17 10/05/17 10/06/17 05:59 05:59 05:59 Intake Total 2120 Output Total 2600 1325 Balance -480 -1325 PT 19.9 SEC (12.0-15.0) H 10/05/17 06:00 INR 1.68 (0.83-1.16) H 10/05/17 06:00 Physical Exam - Physical Exam General Appearance: WD/WN, alert, no apparent distress Respiratory: normal breath sounds, No crackles, No rhonchi, No wheezing Cardiac/Chest: regular rate, rhythm, No diastolic murmur, No systolic murmur Skin: normal color, warm/dry, decubitus (Approximately 2 2 cm decubitus ulcer over sacrum with white slough. Slough is easily removed with saline and 4 x 4 by the nurse. Wound bed is granulation tissue.), other (Left forearm palmar aspect with approximately 5 cm incision with sutures, minimal serosanguineous drainage on bandage, no erythema, no purulence, no dehiscence.) Neuro/Psych: alert, normal mood/affect, oriented x 3 ICD10 Worksheet Patient Problems: Problems Problem Status Onset Acute osteomyelitis of right calcaneus Acute Cellulitis of right ankle Acute 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 Decubitus ulcer of right heel Acute Quadriplegia, C5-C7 incomplete Acute
--- NOTE | 2017-10-05 11:57 | PDOREHIP ---
Admission [facility] - Admission - 3 Day Assessment Period Admission Date/Day 1: 10/04/17 Day 2: 10/05/17 Day 3: 10/06/17 - Active Diagnoses Comorbidities and Co-existing Conditions at Admission: 13910. None of the Above - Skin Conditions Unhealed Pressure Ulcer (1 or more/Stage 1 or >)-Admission: 1. Yes # Stage 2 Pressure Ulcers-Admission: 1 (Sacrum) # Unstageable Pressure Ulcers (Deep Tissue Injury)-Admission: 1 (Left lateral malleolus)
[2017-10-05] MEDS: FERROUS SULFATE 325 MG TAB PO SCH (14:43)
[2017-10-05] MEDS: BISACODYL 10 MG SUPP PR PRN (16:24)
[2017-10-06] MEDS: CARBAMIDE PEROXIDE 15 ML OTIC.BTL EACHEAR SCH ×3 (01:44→20:59)
[2017-10-06] MEDS: ENOXAPARIN 100 MG/ML SYR SC SCH (05:35)
[2017-10-06 08:16] LABS: INR 2.12 (0.83-1.16); PROTIME(PATIENT) 23.8 SEC (12.0-15.0)
[2017-10-06] MEDS: OXYBUTYNIN CHLORIDE 5 MG TAB PO SCH ×2 (09:49→20:59)
[2017-10-06] MEDS: AMOXICILLIN/CLAVULANATE POT 875/125 MG TAB PO SCH (09:49)
[2017-10-06] MEDS: DIAZEPAM 5 MG TAB PO SCH ×2 (09:50→20:59)
[2017-10-06] MEDS: NITROFURANTOIN 50 MG CAP PO SCH ×2 (09:50→20:59)
[2017-10-06] MEDS: FERROUS SULFATE 325 MG TAB PO SCH (09:50)
[2017-10-06] MEDS: PANTOPRAZOLE SODIUM 40 MG TAB PO SCH (09:50)
[2017-10-06] MEDS: BACLOFEN 20 MG TAB PO SCH ×2 (09:50→20:58)
--- NOTE | 2017-10-06 12:35 | SOAPPROG ---
SOAP Progress Note Assessment/Plan: Assessment: Plan: Subjective: CALLED TO SEE PATIENT HAS SOON I CAME TO THE FLOOR THIS MORNING BECAUSE HIS RIGHT BELOW-KNEE AMPUTATION STUMP WAS BLEEDING PROFUSELY FOLLOWING REMOVAL OF WOUND VAC. PATIENT DENIES SHORTNESS OF BREATH OR CHEST PAIN. PATIENT DENIES INCREASED STUMP OR INCISIONAL PAIN. Objective: Vital Signs Temp Pulse Resp BP Pulse Ox 37.8 C 76 16 99/60 L 92 10/06/17 11:20 10/06/17 11:20 10/06/17 11:20 10/06/17 11:20 10/06/17 11:20 10/05/17 10/06/17 10/07/17 05:59 05:59 05:59 Intake Total 2120 1520 2163 Output Total 2600 3625 1100 Balance -480 -2105 1063 PT 23.8 SEC (12.0-15.0) H 10/06/17 06:50 INR 2.12 (0.83-1.16) H 10/06/17 06:50 ICD10 Worksheet Patient Problems: Problems Problem Status Onset Acute osteomyelitis of right calcaneus Acute Cellulitis of right ankle Acute 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 Decubitus ulcer of right heel Acute Quadriplegia, C5-C7 incomplete Acute
[2017-10-06] MEDS ORDERED: MIDAZOLAM 2 MG/2 ML VIAL IVP ONE (12:37)
--- NOTE | 2017-10-06 12:39 | PDANEPAE ---
ANE History of Present Illness BKA wound exploration ANE Past Medical History - Cardiovascular History Hx Hypertension: No Hx Arrhythmias: No Hx Chest Pain: No Hx Coronary Artery / Peripheral Vascular Disease: No Hx CHF / Valvular Disease: No Hx Palpitations: No - Pulmonary History Hx COPD: No Hx Asthma/Reactive Airway Disease: No Hx Recent Upper Respiratory Infection: No Hx Oxygen in Use at Home: No Hx Sleep Apnea: No - Neurologic History Neurologic History Comment: incomplete c5/6 quad - Endocrine History Hx Diabetes: No - Renal History Hx Renal Disorders: No - Liver History Hx Hepatic Disorders: No - Other Health History Other Health History: chronic jordan - Chronic Pain History Chronic Pain: Yes (neck) ANE Review of Systems Review of Systems: - Exercise capacity Exercise capacity: limited by disability ANE Patient History - Allergies Allergies/Adverse Reactions: ciprofloxacin [From Cipro] Allergy (Verified 11/01/16 17:10) ciprofloxacin HCl [From Cipro] Allergy (Verified 11/01/16 17:10) - Home Medications Home Medications: Baclofen [Baclofen 20 mg (*)] 40 mg PO BID 10/05/12 [Last Taken 10/04/17 08:00] Diazepam [Valium 10 MG (*)] 20 mg PO BID 10/05/12 [Last Taken 10/04/17 08:00] Nitrofurantoin Macrocrystal [Nitrofurantoin] 50 mg PO BID 10/05/12 [Last Taken 09/25/17 AM dose] Omeprazole [Prilosec 20 mg] 20 mg PO DAILY 10/05/12 [Last Taken 10/04/17] Oxybutynin Chloride [Ditropan] 5 mg PO BID 10/05/12 [Last Taken 10/04/17 08:00] Acetaminophen [Tylenol 325mg (*)] 650 mg PO Q4H PRN 09/25/17 [Last Taken ] Warfarin Sodium [Coumadin 5MG (*)] 7.5 mg PO DAILY 10/04/17 [Last Taken 15:30] - NPO status NPO Since - Solids (Date): 10/06/17 NPO Since - Solids (Time): 09:00 - Anes Hx Anes Hx: no prior problems - Smoking Hx Smoking Status: Former smoker ANE Labs/Vital Signs - Vital Signs Blood Pressure: 99/60 Heart Rate: 76 Respiratory Rate: 16 O2 Sat (%): 92 Height: 180.34 cm Weight: 90.718 kg ANE Physical Exam - Airway Mallampati Score: Class 2 Mouth exam: normal dental/mouth exam, rader - Pulmonary Pulmonary: no respiratory distress - Cardiovascular Cardiovascular: regular rate and rhythym - ASA Status ASA Status: III ANE Anesthesia Plan Anesthesia Plan: general endotracheal anesthesia
--- NOTE | 2017-10-06 12:43 | SOAPPROG ---
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 * PT and OT to optimize his mobility and activities of daily living towards modified independent with mobility, grooming, and meal preparation and toward minimal assist for transfers, bathing, and dressing. * Right leg ycqvy-liq-aqwt amputation. PROFUSE BLEEDING ALONG MEDIAL INCISION LINE FOLLOWING REMOVAL OF WOUND VAC. POSSIBLE HEMATOMA DRAINAGE VERSES VENOUS SOURCE. DISCUSSED WITH SURGEON, DR. ECHOLS WHO AGREED TO SEND HER PA OVER TO INSPECT WOUND. FOLLOWING THIS, HAD DISCUSSION WITH PA WHO AGREED THAT PATIENT WOULD BE TRANSFERRED OFF THE FLOOR AND OVER TO [facility] FOR OUTPATIENT PROCEDURE WHICH WOULD LIKELY INCLUDE SOME TYPE OF VENOUS LIGATION. PA STATED THAT MORE LIKELY THAN NOT PATIENT WOULD RETURN TO REHAB FLOOR TODAY. DISCUSSED WITH HEAD OF NURSING WHO AGREED UNLESS PATIENT NEEDED CONSTANT MONITORING FOLLOWING THIS PROCEDURE AND IF THAT IS THE CASE THEN PATIENT WILL REMAIN AT [facility] UNTIL MEDICALLY STABLE. * Sacral and left lateral malleolus decubitus ulcers, stage II on the sacrum, and deep tissue injury on the left lateral malleolus. * Continue wound care that he had been receiving in the hospital. Wound nurse consult for these wounds as well as for the wound VAC. * Status post excision of right forearm nodule. Monitor for signs or symptoms of infection. Await pathology. * Anemia, iron deficiency and anemia of chronic disease. * Initiating iron sulfate supplementation 10/05/2017 X 1 month. * Suprapubic catheter with Pseudomonas colonization. * Continue suppressive antibiotics with nitrofurantoin. * Monitor for signs/symptoms of infection. * Neurogenic bowel. He has an elaborate bowel protocol Monday and , which he will continue to perform with the assistance of nursing. * Check for C. difficile if he has diarrhea. * Spasticity. Continue baclofen as well as diazepam. * History of deep venous thrombosis. * Continue warfarin to be managed by Pharmacy with enoxaparin as a bridge until he is therapeutic on warfarin x2 days. * Pain management has been effective with oxycodone/acetaminophen combination, and this will be continued. * Prophylaxis. Continue warfarin and enoxaparin. There is no need for any additional pharmacologic prophylaxis, and mechanical prophylaxis is relatively contraindicated with right eradf-nxg-mcbg amputation and with left ankle lateral malleolus deep tissue injury. TEAM MEETING TODAY WITH DISCUSSION OF PATIENT DURING REHAB ROUNDS WITH GENERAL CONSENSUS OF STAFF INDICATING THAT PATIENT HAD BEEN LARGELY UNCOOPERATIVE SPANNING ACROSS MULTIPLE MANCERA INCLUDING NURSING, PT AND OT. [facility] Plan: 10/06/17 12:41 Subjective: CALLED TO SEE PATIENT 1ST THING THIS MORNING DUE TO PROFUSE BLEEDING OF RIGHT BELOW-KNEE AMPUTATION STUMP AT INCISION LINE. PATIENT DENIED SHORTNESS OF BREATH OR CHEST PAIN. PATIENT DENIED INCREASED INCISION OR STUMP PAIN. Objective: Vital Signs Temp Pulse Resp BP Pulse Ox 37.8 C 76 16 99/60 L 92 10/06/17 11:20 10/06/17 11:20 10/06/17 11:20 10/06/17 11:20 10/06/17 11:20 10/05/17 10/06/17 10/07/17 05:59 05:59 05:59 Intake Total 2120 1520 2163 Output Total 2600 3625 1100 Balance -480 -2105 1063 PT 23.8 SEC (12.0-15.0) H 10/06/17 06:50 INR 2.12 (0.83-1.16) H 10/06/17 06:50 Physical Exam - Physical Exam General Appearance: WD/WN, alert, no apparent distress Respiratory: lungs clear, normal breath sounds Cardiac/Chest: regular rate, rhythm Abdomen: non-tender, soft Skin: other (RIGHT BELOW-KNEE AMPUTATION SITE-HERMINIA IN PLACE. BLEEDING FROM MEDIAL INCISION LINE. WITH ATTEMPT TO EXTEND RIGHT RESIDUAL LIMB, THERE WAS SEVERAL SECONDS STREAM OF NON PULSATILE DARK BLOOD THAT WAS PRESSURIZED. OTHERWISE INCISION LINE WAS CLEAN AND WITHOUT EXUDATE. MILD ERYTHEMA ALONG THE PROXIMAL AND DISTAL INCISION LINE.) ICD10 Worksheet Patient Problems: Problems Problem Status Onset Acute osteomyelitis of right calcaneus Acute Cellulitis of right ankle Acute 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 Decubitus ulcer of right heel Acute Quadriplegia, C5-C7 incomplete Acute
[2017-10-06] MEDS ORDERED: NALOXONE HCL 0.4 MG/ML INJ IVP PRN (14:22)
[2017-10-06] MEDS ORDERED: NS 500 ML IV PRN (14:22)
[2017-10-06] MEDS ORDERED: fentaNYL 100 MCG/2 ML INJ IVP PRN (14:22)
[2017-10-06] MEDS ORDERED: ALBUTEROL 3 ML DEYVIAL IH PRN (14:22)
[2017-10-06] MEDS ORDERED: WARFARIN SODIUM 5 MG TAB PO SCH (16:00)
[2017-10-06] MEDS: DOXYCYCLINE HYCLATE 100 MG CAP/TAB PO SCH (20:59)
[2017-10-06] MEDS: ACETAMINOPHEN 325 MG TAB PO PRN (21:00)
[2017-10-07] MEDS: ACETAMINOPHEN 325 MG TAB PO PRN ×3 (02:01→20:59)
[2017-10-07] MEDS: ENOXAPARIN 100 MG/ML SYR SC SCH (07:25)
[2017-10-07] MEDS: COLLAGENASE 30 GM OINTMENT TP PRN (09:32)
[2017-10-07] MEDS: BACLOFEN 20 MG TAB PO SCH ×2 (09:51→20:58)
[2017-10-07] MEDS: DIAZEPAM 5 MG TAB PO SCH ×2 (09:52→20:58)
[2017-10-07] MEDS: CARBAMIDE PEROXIDE 15 ML OTIC.BTL EACHEAR SCH ×2 (09:52→21:26)
[2017-10-07] MEDS: DOXYCYCLINE HYCLATE 100 MG CAP/TAB PO SCH ×2 (09:53→20:58)
[2017-10-07] MEDS: OXYBUTYNIN CHLORIDE 5 MG TAB PO SCH ×2 (09:53→21:26)
[2017-10-07] MEDS: FERROUS SULFATE 325 MG TAB PO SCH (09:53)
[2017-10-07] MEDS: PANTOPRAZOLE SODIUM 40 MG TAB PO SCH (09:53)
[2017-10-07] MEDS: NITROFURANTOIN 50 MG CAP PO SCH ×2 (09:53→20:58)
[2017-10-07 10:50] LABS: INR 1.78 (0.83-1.16); PROTIME(PATIENT) 20.8 SEC (12.0-15.0)
--- NOTE | 2017-10-07 11:51 | SOAPPROG ---
SOAP Progress Note Assessment/Plan: Assessment: * Debility in a man with C5-C6 incomplete quadriplegia following right below- knee amputation 09/29/2017 for chronic recurrent cellulitis. * PT and OT to optimize his mobility and activities of daily living towards modified independent with mobility, grooming, and meal preparation and toward minimal assist for transfers, bathing, and dressing. * Right leg urtpw-fyy-zjgi amputation. s/p wound vac change in Or with some cautery to stop bleeding 10/06. No signs of further bleeding * Sacral and left lateral malleolus decubitus ulcers, stage II on the sacrum, and deep tissue injury on the left lateral malleolus. * Continue wound care that he had been receiving in the hospital. Wound nurse consult for these wounds as well as for the wound VAC. * Status post excision of right forearm nodule. Monitor for signs or symptoms of infection. Await pathology. * Anemia, iron deficiency and anemia of chronic disease. * Initiating iron sulfate supplementation 10/05/2017 X 1 month. * Suprapubic catheter with Pseudomonas colonization. * Continue suppressive antibiotics with nitrofurantoin. * Monitor for signs/symptoms of infection. * Neurogenic bowel. He has an elaborate bowel protocol Monday and , which he will continue to perform with the assistance of nursing. * Check for C. difficile if he has diarrhea. * Spasticity. Continue baclofen as well as diazepam. * History of deep venous thrombosis. * d/t bleeding with reduce lovenox to prophylaxis dosing until INR is therapeutic. I think the risk of double coagulation outweighs need for overlap since he does not have active dvt. Could overlap with dvt prophylaxis dosing of lovenox * Pain management has been effective with oxycodone/acetaminophen combination, and this will be continued. * Prophylaxis. Continue warfarin and enoxaparin. There is no need for any additional pharmacologic prophylaxis, and mechanical prophylaxis is relatively contraindicated with right ozwdz-dto-bayd amputation and with left ankle lateral malleolus deep tissue injury. TEAM MEETING TODAY WITH DISCUSSION OF PATIENT DURING REHAB ROUNDS WITH GENERAL CONSENSUS OF STAFF INDICATING THAT PATIENT HAD BEEN LARGELY UNCOOPERATIVE SPANNING ACROSS MULTIPLE MANCERA INCLUDING NURSING, PT AND OT. [facility]. Plan: 10/07/17 11:51 10/07/17 19:16 Subjective: no new complaint. small amount of bloody discharge in wound vac Objective: Vital Signs Temp Pulse Resp BP Pulse Ox 36.7 C 82 18 110/65 97 10/07/17 06:33 10/07/17 06:33 10/07/17 06:33 10/07/17 06:33 10/07/17 06:33 10/06/17 10/07/17 10/08/17 05:59 05:59 05:59 Intake Total 1520 4163 Output Total 3625 3900 Balance -2105 263 PT 20.8 SEC (12.0-15.0) H 10/07/17 06:40 INR 1.78 (0.83-1.16) H 10/07/17 06:40 Physical Exam - Physical Exam General Appearance: WD/WN, alert, no apparent distress Respiratory: No respiratory distress Cardiac/Chest: No edema Extremities: other (right leg wound vac in place) Neuro/Psych: alert, normal mood/affect, oriented x 3 ICD10 Worksheet Patient Problems: Problems Problem Status Onset Acute osteomyelitis of right calcaneus Acute Cellulitis of right ankle Acute 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 Decubitus ulcer of right heel Acute Quadriplegia, C5-C7 incomplete Acute
[2017-10-07] MEDS: CHOLECALCIFEROL VIT D3 2,000 UNITS TAB/CAP PO SCH (15:48)
[2017-10-07] MEDS ORDERED: WARFARIN SODIUM 7.5 MG TAB PO ONE (16:00)
[2017-10-07] MEDS ORDERED: ENOXAPARIN 40 MG/0.4 ML SYR SC ONE (16:45)
[2017-10-08] MEDS: ACETAMINOPHEN 325 MG TAB PO PRN ×2 (03:57→21:13)
[2017-10-08] MEDS: CARBAMIDE PEROXIDE 15 ML OTIC.BTL EACHEAR SCH ×2 (07:24→21:10)
[2017-10-08] MEDS: CHOLECALCIFEROL VIT D3 2,000 UNITS TAB/CAP PO SCH (07:24)
[2017-10-08] MEDS: BACLOFEN 20 MG TAB PO SCH ×2 (07:24→21:08)
[2017-10-08] MEDS: DOXYCYCLINE HYCLATE 100 MG CAP/TAB PO SCH ×2 (07:26→21:09)
[2017-10-08] MEDS: DIAZEPAM 5 MG TAB PO SCH ×2 (07:26→21:09)
[2017-10-08] MEDS: NITROFURANTOIN 50 MG CAP PO SCH ×2 (07:27→21:09)
[2017-10-08] MEDS: PANTOPRAZOLE SODIUM 40 MG TAB PO SCH (07:27)
[2017-10-08] MEDS: FERROUS SULFATE 325 MG TAB PO SCH (07:27)
[2017-10-08] MEDS: OXYBUTYNIN CHLORIDE 5 MG TAB PO SCH ×2 (07:27→21:09)
[2017-10-08 08:37] LABS: PLATELET COUNT 358 10^3/uL (150-400)
[2017-10-08 08:49] LABS: INR 1.65 (0.83-1.16); PROTIME(PATIENT) 19.6 SEC (12.0-15.0)
[2017-10-08] MEDS ORDERED: ENOXAPARIN 40 MG/0.4 ML SYR SC SCH (09:00)
[2017-10-08] MEDS: COLLAGENASE 30 GM OINTMENT TP PRN (09:31)
[2017-10-08] MEDS ORDERED: WARFARIN SODIUM 5 MG TAB PO ONE (16:00)
--- NOTE | 2017-10-08 19:24 | SOAPPROG ---
SOAP Progress Note Assessment/Plan: Assessment: * Debility in a man with C5-C6 incomplete quadriplegia following right below- knee amputation 09/29/2017 for chronic recurrent cellulitis. * PT and OT to optimize his mobility and activities of daily living towards modified independent with mobility, grooming, and meal preparation and toward minimal assist for transfers, bathing, and dressing. * Right leg prjfl-gxe-jecv amputation. s/p wound vac change in Or with some cautery to stop bleeding 10/06. No signs of further bleeding * Sacral and left lateral malleolus decubitus ulcers, stage II on the sacrum, and deep tissue injury on the left lateral malleolus. * Continue wound care that he had been receiving in the hospital. Wound nurse consult for these wounds as well as for the wound VAC. * Status post excision of right forearm nodule. Monitor for signs or symptoms of infection. Await pathology. * Anemia, iron deficiency and anemia of chronic disease. * Initiating iron sulfate supplementation 10/05/2017 X 1 month. * Suprapubic catheter with Pseudomonas colonization. * Continue suppressive antibiotics with nitrofurantoin. * Monitor for signs/symptoms of infection. * Neurogenic bowel. He has an elaborate bowel protocol Monday and , which he will continue to perform with the assistance of nursing. * Check for C. difficile if he has diarrhea. * Spasticity. Continue baclofen as well as diazepam. * History of deep venous thrombosis. * d/t bleeding will reduce lovenox to twice daily prophylaxis dosing until INR is therapeutic. I think the risk of double coagulation outweighs need for overlap since he does not have active dvt. Could overlap with dvt prophylaxis dosing of lovenox * Pain management has been effective with oxycodone/acetaminophen combination, and this will be continued. * Prophylaxis. Continue warfarin and enoxaparin. There is no need for any additional pharmacologic prophylaxis, and mechanical prophylaxis is relatively contraindicated with right cyrqk-urx-hbfc amputation and with left ankle lateral malleolus deep tissue injury. [facility]. Plan: 10/07/17 11:51 10/07/17 19:16 10/08/17 19:23 Subjective: No new complaints. Really wants to keep his IV 8 until Monday Objective: Vital Signs Temp Pulse Resp BP Pulse Ox 36.9 C 86 18 106/56 L 97 10/08/17 18:14 10/08/17 18:14 10/08/17 18:14 10/08/17 18:14 10/08/17 18:14 Laboratory Results 10/08/17 06:55 10/07/17 10/08/17 10/09/17 05:59 05:59 05:59 Intake Total 4163 2900 2096 Output Total 3900 4025 3100 Balance 263 -1125 -1004 PT 19.6 SEC (12.0-15.0) H 10/08/17 06:55 INR 1.65 (0.83-1.16) H 10/08/17 06:55 Physical Exam - Physical Exam General Appearance: WD/WN, alert Respiratory: lungs clear, normal breath sounds Cardiac/Chest: regular rate, rhythm Extremities: other (Right AKA with wound VAC) Neuro/Psych: alert ICD10 Worksheet Patient Problems: Problems Problem Status Onset Acute osteomyelitis of right calcaneus Acute Cellulitis of right ankle Acute 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 Decubitus ulcer of right heel Acute Quadriplegia, C5-C7 incomplete Acute
[2017-10-08] MEDS: ENOXAPARIN 40 MG/0.4 ML SYR SC SCH (21:10)
[2017-10-09 06:52] VITALS: RESP 16
[2017-10-09] MEDS: PANTOPRAZOLE SODIUM 40 MG TAB PO SCH (07:49)
[2017-10-09] MEDS: FERROUS SULFATE 325 MG TAB PO SCH (07:49)
[2017-10-09] MEDS: OXYBUTYNIN CHLORIDE 5 MG TAB PO SCH ×2 (07:49→20:21)
[2017-10-09] MEDS: BACLOFEN 20 MG TAB PO SCH ×2 (07:49→20:21)
[2017-10-09] MEDS: NITROFURANTOIN 50 MG CAP PO SCH ×2 (07:49→20:21)
[2017-10-09] MEDS: DOXYCYCLINE HYCLATE 100 MG CAP/TAB PO SCH ×2 (07:50→20:22)
[2017-10-09] MEDS: CHOLECALCIFEROL VIT D3 2,000 UNITS TAB/CAP PO SCH (07:50)
[2017-10-09] MEDS: ENOXAPARIN 40 MG/0.4 ML SYR SC SCH ×2 (07:51→20:21)
[2017-10-09] MEDS: CARBAMIDE PEROXIDE 15 ML OTIC.BTL EACHEAR SCH ×3 (07:51→20:33)
[2017-10-09] MEDS: DIAZEPAM 5 MG TAB PO SCH ×2 (07:51→20:22)
[2017-10-09 08:26] LABS: INR 1.45 (0.83-1.16); PROTIME(PATIENT) 17.8 SEC (12.0-15.0)
--- NOTE | 2017-10-09 12:33 | SOAPPROG ---
SOAP Progress Note Assessment/Plan: Assessment: * C5-C6 incomplete quadriplegia following right below-knee amputation 09/29/2017 for chronic recurrent cellulitis. * PT and OT to optimize his mobility and activities of daily living towards modified independent with mobility, grooming, and meal preparation and toward minimal assist for transfers, bathing, and dressing. * Right leg bklxg-niy-dvcn amputation. Right residual limb looks good. He holds it in 90 of flexion for comfort. Due to incomplete quadriplegia patient is not candidate for right below-knee prosthesis. Abdomen wound VAC is being monitored and managed by Dr. Mujica who will see patient today. * Sacral and left lateral malleolus decubitus ulcers, stage II on the sacrum, and deep tissue injury on the left lateral malleolus. * Continue wound care that he had been receiving in the hospital. Wound nurse consult for these wounds as well as for the wound VAC. * Status post excision of right forearm nodule. Monitor for signs or symptoms of infection. Await pathology. * Anemia, iron deficiency and anemia of chronic disease. * Initiating iron sulfate supplementation 10/05/2017 X 1 month. * Suprapubic catheter with Pseudomonas colonization. * Continue suppressive antibiotics with nitrofurantoin. * Monitor for signs/symptoms of infection. * Neurogenic bowel. He has an elaborate bowel protocol Monday and , which he will continue to perform with the assistance of nursing. * Check for C. difficile if he has diarrhea. * Spasticity. Continue baclofen as well as diazepam. Current dosages Valium 20 mg twice daily and baclofen 40 mg twice daily. He does not report nor does therapy report that spasticity is interfering with bed mobility or transfers. * History of deep venous thrombosis. The Lovenox has been discontinued by pharmacy due to therapeutic INRs any is currently on Coumadin daily. * Continue warfarin to be managed by Pharmacy with enoxaparin as a bridge until he is therapeutic on warfarin x2 days. * Pain management has been effective with oxycodone/acetaminophen combination, and this will be continued. * Prophylaxis. Continue warfarin and enoxaparin. There is no need for any additional pharmacologic prophylaxis, and mechanical prophylaxis is relatively contraindicated with right hxbxb-qju-sfpw amputation and with left ankle lateral malleolus deep tissue injury. Plan: 10/06/17 12:41 10/09/17 12:39 03/05/18 12:40 Subjective: He reports his room is too warm. He does not report significant residual limb pain or phantom pain. He did not have any bleeding from the residual limb over the weekend. Objective: Vital Signs Temp Pulse Resp BP Pulse Ox 36.6 C 79 16 98/59 L 94 10/09/17 06:50 10/09/17 06:50 10/09/17 06:50 10/09/17 06:50 10/09/17 06:50 Laboratory Results 10/08/17 06:55 10/08/17 10/09/17 10/10/17 05:59 05:59 05:59 Intake Total 2900 3596 Output Total 4025 5600 1000 Balance -1125 -2003 -1000 PT 17.8 SEC (12.0-15.0) H 10/09/17 06:40 INR 1.45 (0.83-1.16) H 10/09/17 06:40 Physical Exam - Physical Exam General Appearance: WD/WN, alert, no apparent distress Cardiac/Chest: No edema Abdomen: normal bowel sounds, non-tender, soft Skin: warm/dry, other (Right below-knee amputation incision without erythema or drainage. Wound VAC is in place and appears to be breathing well.) Extremities: other (Right residual limb is held in 90 flexion. Neurological exam is consistent with incomplete quadriplegia.), No swelling ICD10 Worksheet Patient Problems: Problems Problem Status Onset Acute osteomyelitis of right calcaneus Acute Cellulitis of right ankle Acute 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 Decubitus ulcer of right heel Acute Quadriplegia, C5-C7 incomplete Acute
[2017-10-09] MEDS ORDERED: ACETAMINOPHEN 325 MG TAB PO PRN (15:02)
[2017-10-09] MEDS: BISACODYL 10 MG SUPP PR PRN (15:31)
[2017-10-09] MEDS ORDERED: WARFARIN SODIUM 7.5 MG TAB PO SCH (16:00)
[2017-10-09] MEDS: ACETAMINOPHEN 325 MG TAB PO SCH (16:41)
[2017-10-09] MEDS: COLLAGENASE 30 GM OINTMENT TP PRN (22:48)
[2017-10-10] MEDS: ACETAMINOPHEN 325 MG TAB PO SCH ×4 (00:08→18:40)
[2017-10-10] MEDS: BACLOFEN 20 MG TAB PO SCH ×2 (07:42→20:40)
[2017-10-10] MEDS: CARBAMIDE PEROXIDE 15 ML OTIC.BTL EACHEAR SCH ×2 (07:43→20:44)
[2017-10-10] MEDS: CHOLECALCIFEROL VIT D3 2,000 UNITS TAB/CAP PO SCH (07:43)
[2017-10-10] MEDS: DIAZEPAM 5 MG TAB PO SCH ×2 (07:44→20:39)
[2017-10-10] MEDS: DOXYCYCLINE HYCLATE 100 MG CAP/TAB PO SCH ×2 (07:45→20:40)
[2017-10-10] MEDS: ENOXAPARIN 40 MG/0.4 ML SYR SC SCH ×2 (07:45→20:41)
[2017-10-10] MEDS: FERROUS SULFATE 325 MG TAB PO SCH (07:45)
[2017-10-10] MEDS: OXYBUTYNIN CHLORIDE 5 MG TAB PO SCH ×2 (07:46→20:40)
[2017-10-10] MEDS: NITROFURANTOIN 50 MG CAP PO SCH ×2 (07:46→20:40)
[2017-10-10] MEDS: PANTOPRAZOLE SODIUM 40 MG TAB PO SCH (07:46)
--- NOTE | 2017-10-10 10:48 | SOAPPROG ---
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 Today's update: A total of 40 min was spent on the floor in the care of the patient, the majority was spent counseling and coordination of care regarding chronic spinal cord injury management, discharge planning. Patient will follow up with physiatry at [facility] or locally depending on availability. He is planning to get a renal ultrasound and follow up with Urology as well as get a cystoscopy. He also will get a seating evaluation at outpatient physical therapy at [facility]. He will continue on enoxaparin bridge and will get warfarin monitoring as part of his [facility] home health services and will then resume with [facility] as he has been doing. He is currently subtherapeutic in his INR, continue enoxaparin bridge. Discussed with occupational therapy the need for padding on the wheelchair to prevent pressure ulcer injury. * C5-C6 incomplete quadriplegia following right below-knee amputation 09/29/2017 for chronic recurrent cellulitis. * PT and OT to optimize his mobility and activities of daily living towards modified independent with mobility, grooming, and meal preparation and toward minimal assist for transfers, bathing, and dressing. * Continue pre prosthetic rehabilitation. Unsure if he will be a candidate for prosthesis. * Right leg pwnyi-ujp-yzps amputation. He holds it in 90 of flexion for comfort. Due to incomplete quadriplegia patient is not candidate for right below-knee prosthesis. Abdomen wound VAC is being monitored and managed by Dr. Mujica team who will see patient today. * Sacral and left lateral malleolus decubitus ulcers, stage II on the sacrum, and deep tissue injury on the left lateral malleolus. * Continue wound care that he had been receiving in the hospital. Wound nurse consult for these wounds as well as for the wound VAC. * Status post excision of right forearm nodule. Monitor for signs or symptoms of infection. Await pathology. * Anemia, iron deficiency and anemia of chronic disease. * Initiating iron sulfate supplementation 10/05/2017 X 1 month. * Suprapubic catheter with Pseudomonas colonization. * Continue suppressive antibiotics with nitrofurantoin. * Monitor for signs/symptoms of infection. * Neurogenic bowel. He has an elaborate bowel protocol Monday and , which he will continue to perform with the assistance of nursing. * Check for C. difficile if he has diarrhea. * Spasticity. Continue baclofen as well as diazepam. Current dosages Valium 20 mg twice daily and baclofen 40 mg twice daily. He does not report nor does therapy report that spasticity is interfering with bed mobility or transfers. * History of deep venous thrombosis. The Lovenox has been discontinued by pharmacy due to therapeutic INRs any is currently on Coumadin daily. * Continue warfarin to be managed by Pharmacy with enoxaparin as a bridge until he is therapeutic on warfarin x2 days. * Pain management has been effective with oxycodone/acetaminophen combination, and this will be continued. * Prophylaxis. Continue warfarin and enoxaparin. There is no need for any additional pharmacologic prophylaxis, and mechanical prophylaxis is relatively contraindicated with right ishsu-inr-aumd amputation and with left ankle lateral malleolus deep tissue injury. Follow up with physiatry, primary care physician, Urology/renal ultrasound, physical therapy for seating evaluation 10/10/17 10:43 10/10/17 10:50 Subjective: Chief complaint: Chronic spinal cord issues No acute events overnight. Patient denies any new shortness of breath or chest pain, no new numbness, tingling, or weakness. Patient endorses some problems getting blood draws today. He also says that he will follow up in the renal ultrasound and see Urology. He has not seen a physiatry provider for many years , use team at [facility]. He is planning to get a seating evaluation. He was getting warfarin monitoring with [facility] health prior to admission to the hospital, he will get [facility] on discharge initially. Orthopedic surgery to see him today regarding wound management for the surgical site. Objective: Vital Signs Temp Pulse Resp BP Pulse Ox 36.9 C 80 16 94/48 L 96 10/10/17 07:23 10/10/17 07:23 10/10/17 07:23 10/10/17 07:23 10/10/17 07:23 Laboratory Results 10/08/17 06:55 10/09/17 10/10/17 10/11/17 05:59 05:59 05:59 Intake Total 3596 2500 Output Total 5600 4450 Balance -2003 -1949 PT REJ 10/10/17 08:05 INR REJ 10/10/17 08:05 Physical Exam - Physical Exam General Appearance: WD/WN, alert, no apparent distress Respiratory: No respiratory distress, No accessory muscle use Cardiac/Chest: normal peripheral pulses, regular rate, rhythm, No edema Abdomen: distended, other (Low muscle tone in the abdomen) Skin: normal color, warm/dry, No cyanosis, No diaphoresis Extremities: other (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 Left lateral malleolus dressed, but was resting against the upright of the wheelchair foot rest), No pedal edema, No swelling Neuro/Psych: alert, normal mood/affect, oriented x 3, other (Bilateral upper and lower limb weakness, he has less than antigravity strength in the left- sided knee extensors.) ICD10 Worksheet Patient Problems: Problems Problem Status Onset Acute osteomyelitis of right calcaneus Acute Cellulitis of right ankle Acute 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 Decubitus ulcer of right heel Acute Quadriplegia, C5-C7 incomplete Acute
--- NOTE | 2017-10-10 14:10 | SOAPPROG ---
SOAP Progress Note Assessment/Plan: Assessment/Plan: 57yo M s/p R BKA with exploration/coagulation of muscle bleeding on 10/06/17 Wound vac replaced with Prevena vac - will stay in place x 1 week. Can be removed and disposed of by home health clinical liaison Sutures removed R forearm - dressing PRN comfort Stump protector with intermittent breaks d/t pressure from foam Sacral pressure wound - offload pressure. Dressing change daily [facility]staple [facility] Can call in the meantime with worsening symptoms, questions or concerns Discussed c Dr. Perdomo Objective: Vital Signs Temp Pulse Resp BP Pulse Ox 36.9 C 80 16 94/48 L 96 10/10/17 07:23 10/10/17 07:23 10/10/17 07:23 10/10/17 07:23 10/10/17 07:23 Laboratory Results 10/08/17 06:55 10/09/17 10/10/17 10/11/17 05:59 05:59 05:59 Intake Total 3596 2500 Output Total 5600 4450 Balance -2003 -1949 PT REJ 10/10/17 08:05 INR REJ 10/10/17 08:05 ICD10 Worksheet Patient Problems: Problems Problem Status Onset Acute osteomyelitis of right calcaneus Acute Cellulitis of right ankle Acute 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 Decubitus ulcer of right heel Acute Quadriplegia, C5-C7 incomplete Acute
--- NOTE | 2017-10-10 15:12 | PDDCSUM ---
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 Discharge diagnosis: Same Comorbid diagnoses: Incomplete spinal cord injury at C5-6 level, pressure wound on the left lateral malleolus and sacrum, status post excision of right forearm nodule, iron deficiency anemia and anemia of chronic disease, suprapubic catheter with Pseudomonas colonization, neurogenic bowel, neurogenic bladder, spasticity, history of DVT on chronic anticoagulation, pain Consultations: physical therapy, occupational therapy, speech language pathology , social work, dietary, orthopedic surgery Procedures: None Reason for admission: Please see the full history and physical by Dr. Do dated 10/04/2017 for full details. 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 He had debridement of a sacral wound that time as well. He was treated with a wound VAC and admitted to inpatient rehabilitation for impaired functional status. Rehabilitation course: The patient made good progress in inpatient rehabilitation. However, he had extensive coaching from nursing and therapist regarding safe transfers, bowel and bladder management, but elected to pursue treatment strategies on his own accord. This generally entails a bowel program twice a week, transferring toward the affected side. He was monitored by Orthopedic surgery as an inpatient and he did have an episode of bleeding on the stump early in his rehab course. He was transferred back with wound VAC in place and continuous drainage. Recommendations for wound care are included below. He was also found to have anemia that that was consistent with iron deficiency and anemia of chronic disease and was started on iron supplementation. He continued to be treated with suppressive antibiotics for his Pseudomonas colonization of his suprapubic catheter. Spasticity continue to be treated with baclofen as well as diazepam. No changes were made. Patient was discharged on warfarin at a subtherapeutic level with a plan for an enoxaparin bridge. He will be monitored by [facility] for lab draws will go to his primary care physician and he will ultimately be managed as he has been with [facility] warfarin monitoring Clinic. No changes to his pain regimen. He was counseled at length that the sacral wound requires careful monitoring and frequent offloading and close attention as an outpatient. From a functional standpoint, he was eating with setup, independent with oral hygiene, dependent with toilet hygiene, needing supervision for toilet transfer, safety awareness for shower and bathing, supervision for upper body dressing, dependent for lower body dressing including foot wear. He was independent for bed mobility, did not ambulate. He needed supervision for chair to bed transfers he was using a manual ultralight wheelchair independently. Choice was made to bridge with enoxaparin at a lower dose because of his bleeding complications. Plan to continue to warfarin at INR of 2-3, continue enoxaparin until therapeutic for 2 days. Discharge plan: Plan to discharge home with [facility] and caregiver support Condition: Using a wound VAC, in the healing stage for his right BKA, he will need advanced therapy for retraining Medications at discharge: Acetaminophen 650 mg 4 times a day Cholecalciferol vitamin D3 2000 units OTC, 5000 units daily Collagenase 1 application topical daily p.r.n. Doxycycline 100 mg p.o. Twice daily Enoxaparin 40 mg subcutaneous twice daily Ferrous sulfate 325 mg p.o. Daily to be dosed at a time separate from the doxycycline Omeprazole 20 mg daily Diphenoxylate 1 tab 4 times a day p.r.n. For diarrhea Baclofen 40 mg p.o. Twice daily Carbon my peroxide in each ear twice a day Diazepam 20 mg p. O. Twice daily Nitrofurantoin 50 mg p.o. Twice daily Oxybutynin 5 mg p.o. Twice daily Oxycodone/acetaminophen 5/325 1-2 tabs p.o. Q.4 hours p.r.n. For pain Warfarin 7.5 mg p.o. Daily Pending studies: None Issues to be addressed at follow-up: Wound care, renal ultrasound as well as bladder cystoscopy. Seating evaluation. Anticoagulation management Follow up: Home health with [facility], primary care physician, physiatry, Urology, physical therapy seating clinic, warfarin monitoring Clinic. Wound Care Clinic. Wound care: Prevena wound vac in place (incisional disposable wound vac) - does not need to be changed x 1 week. Home care nurse to check wound vac daily to make sure no leak alarm, canister not full and battery alarm not low. If any issues, please refer to patient handbook or call [facility] to troubleshoot. If canister full, please contact Zee Salas PA-C or Dr. Perdomo to request replacement. form builder helper can completely remove dressing and vac in 1 week (10/17) and throw entire setup away. Dress wound with simple gauze dressing or Mepilex/Allevyn. He will f/[facility] with [facility]. He was instructed to call to make an appt. He may call our office in the meantime with any worsening symptoms, additional questions or concerns. Cover left lateral ankle with medium allevyn life dressing and secure with netting. Change Q4D and prn. Change dressings to Sacrum every day and prn. Dressing change to coccyx/sacrum DAILY and PRN impaired dressing: Remove tegaderm with adhesive releaser. 1. clean site w normal saline (NOT wound cleanser) and gauze. 2. Apply Cavilon skin prep to periwound and all red areas. 3. Apply santyl/collagenase (on OCT) to wound base. It needs to be at least 1/8 of an inch thick and covering the entire wound bed. It needs to be thick like cupcake icing over the WHOLE yellow area on the wound bed. 4. Cover with a piece of telfa cut to FIT the wound bed. It should not touch the skin. 5. Secure with tegaderm and cover with Allevyn Life sacral dressing.
--- NOTE | 2017-10-10 15:53 | PDOREHIP ---
Admission [facility] - Admission - 3 Day Assessment Period Admission Date/Day 1: 10/04/17 Day 2: 10/05/17 Day 3: 10/06/17 Discharge [facility] - Discharge - 3 Day Assessment Period 2 Days Prior to Anticipated Discharge Date: 10/09/17 1 Day Prior to Anticipated Discharge Date: 10/10/17 Anticipated Discharge Date: 10/11/17 - Discharge Skin Conditions Unhealed Pressure Ulcer (1 or more/Stage 1 or >)-Discharge: 1. Yes # Stage 2 Pressure Ulcers-Discharge: 1 (Sacrum, present on admit) # These Unstageable Pressure Ulcers (NRD)-Present on Admit: 1
[2017-10-10] MEDS ORDERED: WARFARIN SODIUM 7.5 MG TAB PO ONE (16:00)
[2017-10-10 18:51] VITALS: BP 100/72; PULSE 92; TEMP 98.7; O2SAT 97
[2017-10-11] MEDS: ACETAMINOPHEN 325 MG TAB PO SCH ×3 (00:01→12:07)
[2017-10-11] MEDS: NITROFURANTOIN 50 MG CAP PO SCH (09:41)
[2017-10-11] MEDS: ENOXAPARIN 40 MG/0.4 ML SYR SC SCH (09:41)
[2017-10-11] MEDS: CHOLECALCIFEROL VIT D3 2,000 UNITS TAB/CAP PO SCH (09:42)
[2017-10-11] MEDS: BACLOFEN 20 MG TAB PO SCH (09:42)
[2017-10-11] MEDS: CARBAMIDE PEROXIDE 15 ML OTIC.BTL EACHEAR SCH (09:42)
[2017-10-11] MEDS: DIAZEPAM 5 MG TAB PO SCH (09:42)
[2017-10-11] MEDS: DOXYCYCLINE HYCLATE 100 MG CAP/TAB PO SCH (09:42)
[2017-10-11] MEDS: OXYBUTYNIN CHLORIDE 5 MG TAB PO SCH (09:42)
[2017-10-11] MEDS: PANTOPRAZOLE SODIUM 40 MG TAB PO SCH (09:42)
[2017-10-11] MEDS: COLLAGENASE 30 GM OINTMENT TP PRN (09:43)
--- NOTE | 2017-10-11 09:44 | SOAPPROG ---
SOAP Progress Note Assessment/Plan: Assessment: * C5-C6 incomplete quadriplegia following right below-knee amputation 09/29/2017 for chronic recurrent cellulitis. * Physical occupational therapy have been working on transfers. Patient has paid personal care attendants at home to assist with this. * * Right leg irwlv-ptr-[id number] amputation. Right residual limb looks good. He holds it in 90 of flexion for comfort. Incision distal right residual limb bandaged, no erythema or drainage. Wound VAC is draining. * Sacral and left lateral malleolus decubitus ulcers, stage II on the sacrum, and deep tissue injury on the left lateral malleolus. * Continue wound care that he had been receiving in the hospital. Wound nurse consult for these wounds as well as for the wound VAC. * Status post excision of right forearm nodule. Monitor for signs or symptoms of infection. Await pathology. * Anemia, iron deficiency and anemia of chronic disease. * Initiating iron sulfate supplementation 10/05/2017 X 1 month. * Suprapubic catheter with Pseudomonas colonization. * Continue suppressive antibiotics with nitrofurantoin. * Monitor for signs/symptoms of infection. * Neurogenic bowel. He has an elaborate bowel protocol Monday and , which he will continue to perform with the assistance of nursing. * Check for C. difficile if he has diarrhea. * Spasticity. Continue baclofen as well as diazepam. Current dosages Valium 20 mg twice daily and baclofen 40 mg twice daily. He does not report nor does therapy report that spasticity is interfering with bed mobility or transfers. * History of deep venous thrombosis. The Lovenox has been discontinued by pharmacy due to therapeutic INRs any is currently on Coumadin daily. * Continue warfarin. He will have a home health nurse drawing blood to monitor INRs. * Pain management has been effective with oxycodone/acetaminophen combination, and this will be continued. * Prophylaxis. Continue warfarin and enoxaparin. There is no need for any additional pharmacologic prophylaxis, and mechanical prophylaxis is relatively contraindicated with right jgrzh-uzz-taqh amputation and with left ankle lateral malleolus deep tissue injury. Dr. Arriaga has already dictated discharge summary and placed discharge orders and medications. Plan: 10/06/17 12:41 10/09/17 12:39 10/09/17 12:40 10/11/17 09:44 Subjective: No complaints per patient this morning. He is anticipating his discharge. Apparently his occupational physical therapy sessions have been scheduled for the time of his discharge so the mattress spring encaser is working on changing this. He denies significant phantom limb pain or residual limb pain. He does not report any problems with the wound VAC. Objective: Vital Signs Temp Pulse Resp BP Pulse Ox 37.1 C 92 16 100/72 97 10/10/17 18:50 10/10/17 18:50 10/10/17 18:50 10/10/17 18:50 10/10/17 18:50 Laboratory Results 10/08/17 06:55 10/10/17 10/11/17 10/12/17 05:59 05:59 05:59 Intake Total 2500 586 Output Total 4450 3400 Balance -1950 -2814 PT REJ 10/11/17 06:55 INR TNP 10/11/17 06:55 Physical Exam - Physical Exam General Appearance: WD/WN, alert, no apparent distress Respiratory: lungs clear, normal breath sounds Cardiac/Chest: No edema Abdomen: non-tender, soft Skin: decubitus (Grade 1 right buttock) ICD10 Worksheet Patient Problems: Problems Problem Status Onset Acute osteomyelitis of right calcaneus Acute Cellulitis of right ankle Acute 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 Decubitus ulcer of right heel Acute Quadriplegia, C5-C7 incomplete Acute
[2017-10-11] MEDS ORDERED: FERROUS SULFATE 325 MG TAB PO SCH (12:00)
[2017-10-11 13:09] LABS: INR 1.93 (0.83-1.16); PROTIME(PATIENT) 22.1 SEC (12.0-15.0)
== END 2017-10-11 13:52 | disposition home health service (06) | DRG 559 ==
LOC: BREH 10-04 16:10
PROVIDERS: ADMIT Internal Medicine; ATTEND Physical Medicine & Rehabilitation
PROC: F07Z5FZ Bed Mobility Treatment using Assistive, Adaptive, Supportive or Protective Equipment (ICD-10-PCS; principal; 2017-10-04)
PROC: F08Z1FZ Dressing Techniques Treatment using Assistive, Adaptive, Supportive or Protective Equipment (ICD-10-PCS; principal; 2017-10-04)
PROC: F07Z8FZ Transfer Training Treatment using Assistive, Adaptive, Supportive or Protective Equipment (ICD-10-PCS; principal; 2017-10-04)
PROC: F08Z2FZ Grooming/Personal Hygiene Treatment using Assistive, Adaptive, Supportive or Protective Equipment (ICD-10-PCS; principal; 2017-10-04)
DX: Z47.81 Encounter for orthopedic aftercare following surgical amputation (principal); Z89.511 Acquired absence of right leg below knee; G82.54 Quadriplegia, C5-C7 incomplete; T87.89 Other complications of amputation stump; M96.840 Postprocedural hematoma of a musculoskeletal structure following a musculoskeletal system procedure; L89.152 Pressure ulcer of sacral region, stage 2; L89.899 Pressure ulcer of other site, unspecified stage; K59.2 Neurogenic bowel, not elsewhere classified; M62.838 Other muscle spasm; R33.8 Other retention of urine; D50.9 Iron deficiency anemia, unspecified; D63.8 Anemia in other chronic diseases classified elsewhere; N31.9 Neuromuscular dysfunction of bladder, unspecified; Z86.718 Personal history of other venous thrombosis and embolism; Z86.19 Personal history of other infectious and parasitic diseases; Z98.1 Arthrodesis status; Z93.50 Unspecified cystostomy status; Z22.39 Carrier of other specified bacterial diseases; Z99.3 Dependence on wheelchair
CPT/HCPCS: 97110-GO; 97110-GP; 97112-GP; 97162-GP; 97167-GO; 97530-GO; 97530-GP; 97535-GO; 97542-GP; J1650; J2250

== ENCOUNTER → 2017-10-06 | Day surgery (SDC) | payer OTHER, MEDICAID ==
[~2017-10-06] MED LIST: ALBUTEROL 3 ML DEYVIAL IH PRN; BUPIVACAINE/EPI 0.5% 30 ML SDV ONE; DEXAMETHASONE 4 MG/ML VIAL ONE; DOXYCYCLINE HYCLATE 100 MG CAP/TAB PO SCH; LIDOCAINE 1% 2 ML INJ ID PRN; LIDOCAINE 2% 5 ML SDV ONE; MIDAZOLAM 2 MG/2 ML VIAL ONE; NALOXONE HCL 0.4 MG/ML INJ IVP PRN; NS 500 ML IV PRN; PROPOFOL 200 MG/20 ML VIAL ONE; ROCURONIUM 50 MG/5 ML VIAL ONE; SUGAMMADEX SODIUM 200 MG/2 ML VIAL IVP ONE; THROMBIN (BOVINE) 20,000 UNIT SPRAY TP ONE; ceFAZolin 2 GM/SWFI 2 GM/20 ML SYR IVP ONE; fentaNYL 100 MCG/2 ML INJ IVP PRN; fentaNYL 100 MCG/2 ML INJ ONE
--- NOTE | 2017-10-06 14:29 | POSTOPPROG ---
Post Op Note Date of Operation: 10/06/17 Surgeon: Yarely Perdomo Anesthesiologist: yogesh Anesthesia: GET(General Endotracheal) Pre-op Diagnosis: R BKA hematoma Post-op Diagnosis: same Indication: 57 yo anticoagulated with bleeding from BKA Procedure: Explore BKA and coagulate muscle Findings: oozing muscle, posterior hematoma Inf/Abcess present in the surg proc area at time of surgery?: No EBL: Minimal Drains: Wound Vac Specimen(s): none
--- NOTE | 2017-10-06 14:35 | SOAPPROG ---
SOAP Progress Note Assessment/Plan: Assessment: I opened the BKA. There was a hematoma posterior. Some muscle oozing which was controlled with electrocautery Keep wound vac on. I will change it on Monday or Monday My cell is [phone] if there are problems. If I don't answer, Dr. Hein is invoice classification clerk for the practice [phone] I gave 1 unit FFP Doxycycline 100 mg po bid x 7 days Plan: 10/06/17 14:29 Objective: Vital Signs Temp Pulse Resp BP Pulse Ox 37.2 C 91 16 111/69 96 10/06/17 12:31 10/06/17 12:31 10/06/17 12:31 10/06/17 12:31 10/06/17 12:31 ICD10 Worksheet Patient Problems: Problems Problem Status Onset Acute osteomyelitis of right calcaneus Acute Cellulitis of right ankle Acute 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 Decubitus ulcer of right heel Acute Quadriplegia, C5-C7 incomplete Acute
[2017-10-06 14:43] VITALS: TEMP 98.6
--- NOTE | 2017-10-06 14:48 | GCON ---
[f rep st] CONSULTATION HISTORY OF PRESENT ILLNESS: The patient is a 57-year-old man with incomplete quadriplegia, who is we ll known to our service for chronic wounds of his right lower extremity. He was recently admitted fo r cellulitis of the right lateral malleolus wound, with significantly worsening wound appearance and dimensions. There was also palpable bone in the base of the wound. He was taken to the operating ro om by Dr. Yarely Perdomo on 09/29/2017 for right below-knee amputation. He had a wound VAC in place for 1 week. He was discharged from the hospital to inpatient rehab. The wound VAC was removed this mor gopal, and the nurses noted profuse bleeding from the medial aspect of his surgical incision. They at tempted pressure to the area without improvement. They described the bleeding as forceful and gushin g. The patient denies any lightheadedness or dizziness. He was in his usual state of health until t his morning when the wound VAC was removed, but he did say that he has been having some increased spa sms of his right lower extremity. PAST MEDICAL HISTORY: Incomplete quadriplegia from rugby accident, spinal cord injury C5-6, history of DVTs, chronic urinary retention with suprapubic catheter. PAST SURGICAL HISTORY: Right BKA as mentioned above, cervical spine fusion, right calcaneal amputati on, hemorrhoidectomy. ALLERGIES: Ciprofloxacin. SOCIAL HISTORY: He typically lives independently at home with hired caregivers. He denies tobacco, alcohol, or recreational drug use. FAMILY HISTORY: Noncontributory to wound. REVIEW OF SYSTEMS: A 10-point review of systems was negative aside from the HPI. PHYSICAL EXAMINATION: GENERAL: Well-developed, well-nourished man, in no acute distress. No pallor . HEENT: Normocephalic, atraumatic. No hearing deficits. Pupils equal and round. No scleral icte luis alberto. Mucous membranes moist. NECK: Trachea midline. RESPIRATORY: No increased work of breathing. CARDIOVASCULAR: No peripheral edema. SKIN: The right below-knee amputation stump has evidence of dried blood on the medial aspect. A nurse is actively holding pressure on the medial aspect. Upon initial examination, there was no active bleeding. However, when the area was further examined and p robed, brisk bleeding was incited. This was dark venous-appearing blood. I ultimately removed appro ximately 5 pramod to reveal the underlying wound bed. I was unable to see the active bleeder. I ap plied thrombin to the area and held pressure. I also applied Promogran Ag Lili to the area and hel d pressure. The bleeding waxed and waned. It would stop for several minutes, and then when pressure was alleviated and the wound was inspected, the bleeding would start up again. There was no surroun ding erythema. No evidence of active infection. The remainder of the wound appeared stable with sta ples intact. NEUROLOGIC: Incomplete quad. PSYCHIATRIC: Mood and affect normal. IMPRESSION AND PLAN: A 57-year-old man, status post right below-knee amputation 1 week postop, who h as an active bleed within the surgical site. I was unable to appropriately evaluate this or dress it at bedside. I recommend operative exploration. He will be transferred to [facility] for op erative intervention. The plan is for him to transfer back to rehab, as this can be an outpatient pr ocedure. Also of note, his INR is supratherapeutic at 2.12 today. He will be typed and screened, an d FFP administered preoperatively. He will be sent with the wound VAC to the main hospital. I do no t know if we will need this after surgery, but wound instructions will be sent. The case was discuss ed with Dr. Yarely Perdomo, who agrees with the above impression and plan. /[id number]/MODL
[2017-10-06 15:23] VITALS: O2SAT 94
[2017-10-06 15:50] VITALS: BP 111/70; PULSE 72; RESP 16
--- NOTE | 2017-10-07 10:57 | GOP ---
[f rep st] OPERATIVE REPORT DATE OF OPERATION: 10/06/2017 SURGEON: Yarely Perdomo MD ANESTHESIA: General. ANESTHESIOLOGIST: Phong Ruiz MD PREOPERATIVE DIAGNOSIS: Right xihgr-hen-sdaj hematoma. POSTOPERATIVE DIAGNOSIS: Right shzwf-vts-qukq hematoma. PROCEDURE PERFORMED: Exploration onyqt-fkz-vfvq amputation and coagulate bleeding muscle. FINDINGS: Oozing from muscle and a posterior hematoma. No distinct blood vessel. SPECIMENS: None. ESTIMATED BLOOD LOSS: Minimal new blood. INDICATIONS: Altaf is a 57-year-old man who I performed an amputation on 1 week ago. His incisional wound VAC was taken off today at the rehab center and then he started having bleeding from the wound that could not be controlled. My PA evaluated him at the rehab center and again could not adequately control the bleeding. We brought him over for operative exploration. DESCRIPTION OF PROCEDURE: Altaf was brought into the operating room, placed supine on the table, and general anesthesia was administered. His right stump was prepped and draped in the usual sterile fa shion. Paul were removed. There was a large posterior hematoma. There is no distinct vessel blee ding, however, muscle was oozing in several different locations. Fastidious attention to hemostasis was achieved with electrocautery. I then placed thrombin in the wound. We observed the wound for qu ite some time and no additional bleeding was noted. I closed the flap with 2-[address] [facility]. I then placed another incisional wound VAC. He was awakened in the operating room, extubated and transferred to PACU in stable condition. /[id number]/MODL
== END ==
LOC: FSGY 11:06
PROVIDERS: ATTEND Surgery
PROC: [UNRECOGNIZED PROCEDURE] (principal; 2017-10-06 12:45)
PROC: 30233K1 Transfusion of Nonautologous Frozen Plasma into Peripheral Vein, Percutaneous Approach (ICD-10-PCS; principal; 2017-10-06 12:45)
DX: T87.89 Other complications of amputation stump (principal); M96.840 Postprocedural hematoma of a musculoskeletal structure following a musculoskeletal system procedure; G82.54 Quadriplegia, C5-C7 incomplete; Y65.8 Other specified misadventures during surgical and medical care; Z89.511 Acquired absence of right leg below knee; Z96.0 Presence of urogenital implants; Z86.718 Personal history of other venous thrombosis and embolism; Z86.19 Personal history of other infectious and parasitic diseases; Z79.01 Long term (current) use of anticoagulants; Z99.3 Dependence on wheelchair; Z98.1 Arthrodesis status
CPT/HCPCS: 35860; 36430; P9016; P9017; J0690; J1100; J2250; J2704; J3010

== ENCOUNTER → 2018-05-01 | Outpatient (CLI) | payer OTHER, MEDICAID | LOC: FIMAGING 12:57 | PROVIDERS: ATTEND Specialist | DX: K80.20 Calculus of gallbladder without cholecystitis without obstruction (principal); R93.9 Diagnostic imaging inconclusive due to excess body fat of patient ==